=== PATIENT | male | born 1950 | race Caucasian/White ===

== ENCOUNTER 2019-04-01 11:15 | Emergency (ER) | payer MEDICARE, OTHER ==
[~2019-04-01] VITALS: Ht 180.3 cm; Wt 77.3 kg
[~2019-04-01 11:15] MED LIST: ACET500T15 PO; ASPI81TA26 PO; ATOR1TAB21 PO; CHLO25TA PO; KLON1TAB PO; LISI-538 PO; NICO7DIS2 TD; NITR4TASL SL; PLAV1TAB2 PO; POTA99TA PO; RANI150T PO
[2019-04-01 12:16] LABS: VENOUS BASE EXCESS -1.8 (-2.0-2.0); VENOUS HCO3 24.4 MEQ/L (23.0-27.0); VENOUS O2 SATURATION 60.2 % (60.0-80.0); VENOUS PARTIAL PRESSURE CO2 46.5 mmHg (38.0-50.0); VENOUS PH 7.337 UNITS (7.330-7.430); VENOUS TOTAL CO2 25.8 MEQ/L (24.0-28.0)
[2019-04-01 12:21] LABS: BASO % 0.3 % (0.0-1.0); EOS # 0.1 10^3/uL (0.0-0.50); EOS % 0.9 % (0.0-3.0); HEMATOCRIT 42.9 % (42.0-52.0); HEMOGLOBIN 15.3 g/dl (13.5-17.5); LYMPH # 1.4 10^3/uL (1.5-4.5); LYMPH % 24.7 % (24.0-44.0); MEAN CORPUSCULAR HEMOGLOBIN 33.5 pg (27.0-33.0); MEAN CORPUSCULAR HGB CONC 35.7 g/dl (32.0-36.5); MEAN CORPUSCULAR VOLUME 93.9 fl (80.0-96.0); MONO # 0.4 10^3/uL (0.0-0.8); MONO % 6.9 % (0.0-5.0); NEUTROPHILS # 3.9 10^3/uL (1.8-7.7); NEUTROPHILS % 66.9 % (36.0-66.0); PLATELET COUNT, AUTOMATED 167 10^3/uL (150-450); RED BLOOD COUNT 4.57 10^6/uL (4.30-6.10); WHITE BLOOD COUNT 5.8 10^3/uL (4.0-10.0)
[2019-04-01 12:54] LABS: BLOOD UREA NITROGEN 32 MG/DL (7-18); CALCIUM LEVEL 9.8 MG/DL (8.8-10.2); CARBON DIOXIDE LEVEL 25 MEQ/L (21-32); CHLORIDE LEVEL 97 MEQ/L (98-107); CPK CREATINE PHOSPHOKINASE 48 U/L (39-308); CREATININE FOR GFR 1.55 MG/DL (0.70-1.30); GLOMERULAR FILTRATION RATE 47.8 (>49); GLUCOSE, FASTING 404 MG/DL (70-100); POTASSIUM SERUM 4.2 MEQ/L (3.5-5.1); SODIUM LEVEL 132 MEQ/L (136-145); TROPONIN I < 0.02 NG/ML (< 0.10)
--- NOTE | 2019-04-01 12:56 | REP ---
HISTORY: Syncope. COMPARISON: 05/01/2015 The technique utilized in obtaining the radiograph has magnified the cardiac silhouette and accentuated the interstitial markings. The superior mediastinal structures are midline. The cardiac silhouette is unremarkable in size, shape, and position. The diaphragmatic surfaces of the lungs are regular, and the costophrenic angles are clear. The pulmonary cody are clear. The imaged osseous structures are intact. IMPRESSION: There is no acute cardiopulmonary disease. Electronically Signed by Juan Ochoa DO 04/01/2019 01:43 P
[2019-04-01 12:58] LABS: CK-MB VALUE MASS 2.1 NG/ML (<3.6); MB/CK RELATIVE INDEX 4.38 (< OR =4)
[2019-04-01] MEDS ORDERED: HumuLIN R (REGULAR) INSULIN (NovoLIN R) **100U/ML** PER UNIT SC ONE ×2 (13:15→14:30)
--- NOTE | 2019-04-01 13:23 | REP ---
HISTORY: Syncope. COMPARISON: 10/25/2006. TECHNIQUE: 4.5 mm contiguous transaxial sections were obtained from the skull base to the cerebral convexities with thin cuts through the posterior fossa without the administration of intravenous contrast. FINDINGS: The ventricles and sulci are consistent with the patient's age. There are no extra-axial fluid collections. There is no mass effect. The deep cerebral white matter is consistent with the patient's age. The orbital and petrous structures , cerebellopontine angles, and posterior fossa are unremarkable. The sella turcica, cavernous, and paracavernous structures are essentially unremarkable. The visualized portions of the paranasal sinuses and mastoid air cells are clear. Images of the skull base show no gross abnormality. IMPRESSION: Essentially unremarkable CT examination of the brain. Electronically Signed by Juan Ochoa DO 04/01/2019 01:44 P
[2019-04-01] MEDS ORDERED: clonazePAM 1 MG TAB PO ONE (17:00)
[2019-04-01 18:09] LABS: CK-MB VALUE MASS 1.6 NG/ML (<3.6); CPK CREATINE PHOSPHOKINASE 40 U/L (39-308); TROPONIN I < 0.02 NG/ML (< 0.10)
[2019-04-01 18:15] VITALS: BP 131/74
[2019-04-01] MEDS ORDERED: LANTINJ4 SC (18:27)
--- NOTE | 2019-04-01 21:40 | ECGEPIP ---
[facility] - ED Test Date: 2019-04-01 Pat Name: CELE ARMENDARIZ Department: Room: - Gender: Male Peace Officer: fernando : 1950 Requested By: Isaac Hope Order Number: [id number] Reading MD: Ilda Crooks Measurements Intervals [place] Rate: 55 P: 57 PA: 216 QRS: 33 QRSD: 71 T: 152 QT: 377 QTc: 362 Interpretive Statements SINUS BRADYCARDIA WITH SINUS ARRHYTHMIA WITH FIRST DEGREE AV BLOCK NONSPECIFIC ST & T-WAVE ABNORMALITY Electronically Signed on 04-01-2019 21:39:46 EDT by Ilda Crooks
== END 2019-04-01 18:57 | disposition home or self-care (01) ==
LOC: M ED 12:09
DX: R42 Dizziness and giddiness (principal); E11.9 Type 2 diabetes mellitus without complications; R00.1 Bradycardia, unspecified; I44.0 Atrioventricular block, first degree; Z79.82 Long term (current) use of aspirin; Z79.899 Other long term (current) drug therapy; Z86.79 Personal history of other diseases of the circulatory system; Z88.0 Allergy status to penicillin; Z88.2 Allergy status to sulfonamides; Z88.1 Allergy status to other antibiotic agents; Z88.8 Allergy status to other drugs, medicaments and biological substances; Z95.5 Presence of coronary angioplasty implant and graft

== ENCOUNTER → 2019-09-11 | Outpatient (REF) | payer MEDICARE ==
[~2019-09-11] MED LIST changes: +LANTINJ4 SC
== END ==
LOC: M LAB REF 09:42
PROVIDERS: ATTEND Dermatology
DX: D23.5 Other benign neoplasm of skin of trunk (principal)

== ENCOUNTER → 2019-10-09 | Outpatient (REF) | payer MEDICARE ==
[~2019-10-09] MED LIST changes: +GLIP2.5T6 PO; +LEVE1INJ5 SQ
== END ==
LOC: M LAB REF 17:11
PROVIDERS: ATTEND Dermatology
DX: L72.0 Epidermal cyst (principal)

== ENCOUNTER 2019-10-17 12:09 | Emergency (ER) | payer MEDICARE ==
[~2019-10-17] VITALS: Ht 180.3 cm; Wt 83.8 kg
[~2019-10-17 12:09] MED LIST changes: -GLIP2.5T6 PO; -LEVE1INJ5 SQ
[2019-10-17] MEDS ORDERED: LEVE1INJ5 SQ (12:19)
[2019-10-17] MEDS ORDERED: GLIP2.5T6 PO (12:19)
[2019-10-17 13:46] LABS: HEMATOCRIT 48.6 % (42.0-52.0); MEAN CORPUSCULAR HEMOGLOBIN 34.3 pg (27.0-33.0); PLATELET COUNT, AUTOMATED 176 10^3/uL (150-450); RED BLOOD COUNT 4.96 10^6/uL (4.30-6.10); WHITE BLOOD COUNT 6.5 10^3/uL (4.0-10.0)
[2019-10-17 14:02] LABS: INR 1.02; PROTHROMBIN TIME 13.1 SECONDS (11.8-14.0)
[2019-10-17 14:03] LABS: PARTIAL THROMBOPLASTIN TIME 27.3 SECONDS (25.0-38.4)
[2019-10-17 14:44] VITALS: BP 155/75
[2019-10-17] MEDS ORDERED: ASPIRIN 81 MG CHEW TABLET PO ONE (14:45)
== END 2019-10-17 15:10 | disposition home or self-care (01) ==
LOC: M ED 12:09
DX: I73.9 Peripheral vascular disease, unspecified (principal); E11.40 Type 2 diabetes mellitus with diabetic neuropathy, unspecified; I10 Essential (primary) hypertension; E78.5 Hyperlipidemia, unspecified; J44.1 Chronic obstructive pulmonary disease with (acute) exacerbation; N40.1 Benign prostatic hyperplasia with lower urinary tract symptoms; M54.5 Low back pain; F33.9 Major depressive disorder, recurrent, unspecified; F41.9 Anxiety disorder, unspecified; Z88.0 Allergy status to penicillin; Z88.1 Allergy status to other antibiotic agents; Z88.2 Allergy status to sulfonamides; Z88.8 Allergy status to other drugs, medicaments and biological substances; Z79.02 Long term (current) use of antithrombotics/antiplatelets; Z79.82 Long term (current) use of aspirin; Z79.4 Long term (current) use of insulin; Z79.899 Other long term (current) drug therapy

== ENCOUNTER → 2020-05-16 | Outpatient (CLI) | payer MEDICARE, OTHER ==
[~2020-05-16] MED LIST changes: +GLIP2.5T6 PO; +LEVE1INJ5 SQ
[2020-05-16 11:36] LABS: HEMATOCRIT 44.1 % (42.0-52.0); HEMOGLOBIN 15.3 g/dl (13.5-17.5); MEAN CORPUSCULAR HEMOGLOBIN 35.4 pg (27.0-33.0); MEAN CORPUSCULAR HGB CONC 34.7 g/dl (32.0-36.5); MEAN CORPUSCULAR VOLUME 102.1 fl (80.0-96.0); PLATELET COUNT, AUTOMATED 136 10^3/uL (150-450); RED BLOOD COUNT 4.32 10^6/uL (4.30-6.10); WHITE BLOOD COUNT 4.6 10^3/uL (4.0-10.0)
[2020-05-16 11:40] LABS: ALBUMIN 3.7 GM/DL (3.2-5.2); BILIRUBIN,TOTAL 0.5 MG/DL (0.2-1.0); CALCIUM LEVEL 9.1 MG/DL (8.8-10.2); CREATININE FOR GFR 1.6 MG/DL (0.70-1.30); POTASSIUM SERUM 4.7 MEQ/L (3.5-5.1); PROSTATIC SPECIFIC AG MONITOR 1.19 NG/ML (< 4.00); TOTAL PROTEIN 6.6 GM/DL (6.4-8.2)
[2020-05-16 11:52] LABS: HEMOGLOBIN A1c 8.8 %
== END ==
LOC: M PLALAB 08:41
PROVIDERS: ATTEND Family Medicine
DX: E11.9 Type 2 diabetes mellitus without complications (principal); Z12.5 Encounter for screening for malignant neoplasm of prostate
CPT/HCPCS: 36415; 80053; 83036; 84153; 85027; G0463

== ENCOUNTER → 2020-06-12 | Outpatient (CLI) | payer MEDICARE, OTHER ==
[2020-06-12 11:54] LABS: CREATININE FOR GFR 1.65 MG/DL (0.70-1.30); GLOMERULAR FILTRATION RATE 44.4 (>49)
== END ==
LOC: M PLALAB 08:43
PROVIDERS: ATTEND Surgery Vascular Surgery
DX: I70.213 Atherosclerosis of native arteries of extremities with intermittent claudication, bilateral legs (principal); R94.4 Abnormal results of kidney function studies

== ENCOUNTER → 2020-12-19 | Outpatient (REF) | payer MEDICARE, OTHER ==
[~2020-12-19] MED LIST changes: -LISI-538 PO; +LISI20TA33 PO
[2020-12-19 12:16] LABS: BASO % 0.2 % (0.0-1.0); EOS # 0.1 10^3/uL (0.0-0.5); EOS % 1.7 % (0.0-3.0); HEMATOCRIT 44.6 % (42.0-52.0); HEMOGLOBIN 15.5 g/dl (13.5-17.5); LYMPH # 1.6 10^3/uL (1.5-5.0); LYMPH % 24.9 % (24.0-44.0); MEAN CORPUSCULAR HEMOGLOBIN 34.8 pg (27.0-33.0); MEAN CORPUSCULAR HGB CONC 34.8 g/dl (32.0-36.5); MONO # 0.3 10^3/uL (0.0-0.8); MONO % 4.9 % (2.0-8.0); NEUTROPHILS # 4.3 10^3/uL (1.5-8.5); NEUTROPHILS % 67.8 % (36.0-66.0); PLATELET COUNT, AUTOMATED 152 10^3/uL (150-450); RED BLOOD COUNT 4.46 10^6/uL (4.30-6.10); WHITE BLOOD COUNT 6.3 10^3/uL (4.0-10.0)
[2020-12-19 12:55] LABS: ALBUMIN 3.7 GM/DL (3.2-5.2); ALT/SGPT 52 U/L (12-78); BILIRUBIN,TOTAL 0.8 MG/DL (0.2-1.0); BLOOD UREA NITROGEN 30 MG/DL (7-18); CALCIUM LEVEL 9.2 MG/DL (8.8-10.2); CARBON DIOXIDE LEVEL 30 MEQ/L (21-32); CHLORIDE LEVEL 98 MEQ/L (98-107); CHOLESTEROL LEVEL 122 MG/DL (<200); CHOLESTEROL RISK RATIO 3.588 (<5); CREATININE FOR GFR 1.59 MG/DL (0.70-1.30); GLOMERULAR FILTRATION RATE 46.3 (>49); GLUCOSE, FASTING 453 MG/DL (70-100); HDL CHOLESTEROL 34 MG/DL (>40); NON-HDL-C 88 MG/DL; POTASSIUM SERUM 4.4 MEQ/L (3.5-5.1); SODIUM LEVEL 134 MEQ/L (136-145); TOTAL PROTEIN 6.9 GM/DL (6.4-8.2); TRIGLYCERIDES LEVEL 557 MG/DL (<150)
== END ==
LOC: M LAB REF 11:21
PROVIDERS: ATTEND Pediatrics
DX: E78.2 Mixed hyperlipidemia (principal); J44.9 Chronic obstructive pulmonary disease, unspecified; E11.59 Type 2 diabetes mellitus with other circulatory complications

== ENCOUNTER → 2021-01-07 | Outpatient (CLI) | payer MEDICARE ==
--- NOTE | 2021-01-08 07:34 | REP ---
INDICATION: DIZZINESS, GIDDYNESS COMPARISON: None. TECHNIQUE: Veliz scale and color Doppler evaluation using linear high frequency transducer Findings: FINDINGS: Two-dimensional veliz scale and color images demonstrate moderate mixed atheromatous plaquing with laminar flow and no appreciable stenosis or occlusion. Color Doppler interrogation demonstrates normal arterial wave patterns and velocities with elements of spectral broadening. Normal flow direction is appreciated in the bilateral vertebral arteries. ICA peak systolic velocity: Right 65.2 cm/s; Left 72.8 cm/s ICA diastolic velocity: Right 25.5 cm/s; Left 19.0 cm/s ECA peak systolic velocity: Right 78.9 cm/s; Left 103.8 cm/s CCA peak systolic velocity: Right 64.0 cm/s; Left 95.2 cm/s ICA/CCA ratio: Right 2.88 cm/s; Left 1.19 cm/s IMPRESSION: No hemodynamically significant areas of narrowing or stenosis appreciated. Based on set standards narrowing falls within the less than 50% range. <Electronically signed by Tim Bergman > 01/08/21 [id number]
== END ==
LOC: M RAD 11:25
PROVIDERS: ATTEND Pediatrics
DX: R42 Dizziness and giddiness (principal); R09.89 Other specified symptoms and signs involving the circulatory and respiratory systems

== ENCOUNTER → 2021-01-08 | Outpatient (CLI) | payer MEDICARE ==
--- NOTE | 2021-01-09 02:48 | REP ---
INDICATION: LUNG SCREENING COMPARISON: 10/29/2015 TECHNIQUE: Axial noncontrast images from the thoracic inlet to the upper abdomen using low-dose lung screening technique (LDCT). FINDINGS: There is a 12 mm nodule with irregular spiculated margin in the right upper lobe (image 32). There is a non solid 9 mm density in the posterior periphery of the right upper lobe (image 42). Remainder of lung cody are clear. Evaluation for mediastinal and hilar adenopathy is incomplete due to technique. Tracheobronchial tree is patent. No effusion. No pneumothorax. IMPRESSION: Lung-RADS category 4A. Further investigation including PET-CT and/or biopsy is recommended. <Electronically signed by Tim Bergman > 01/09/21 0735
== END ==
LOC: M RAD 11:07
PROVIDERS: ATTEND Pediatrics
DX: Z12.2 Encounter for screening for malignant neoplasm of respiratory organs (principal); R91.1 Solitary pulmonary nodule

== ENCOUNTER → 2021-01-23 | Outpatient (REF) | payer MEDICARE ==
[2021-01-23 12:36] LABS: BASO % 0.3 % (0.0-1.0); EOS # 0.1 10^3/uL (0.0-0.5); EOS % 1.5 % (0.0-3.0); HEMATOCRIT 44.8 % (42.0-52.0); HEMOGLOBIN 16.1 g/dl (13.5-17.5); LYMPH # 1.2 10^3/uL (1.5-5.0); MEAN CORPUSCULAR HEMOGLOBIN 35.3 pg (27.0-33.0); MEAN CORPUSCULAR HGB CONC 35.9 g/dl (32.0-36.5); MEAN CORPUSCULAR VOLUME 98.2 fl (80.0-96.0); MONO # 0.4 10^3/uL (0.0-0.8); MONO % 7.1 % (2.0-8.0); NEUTROPHILS # 4.3 10^3/uL (1.5-8.5); NEUTROPHILS % 71.8 % (36.0-66.0); PLATELET COUNT, AUTOMATED 165 10^3/uL (150-450); RED BLOOD COUNT 4.56 10^6/uL (4.30-6.10); WHITE BLOOD COUNT 6.1 10^3/uL (4.0-10.0)
[2021-01-23 12:42] LABS: INR 0.95; PROTHROMBIN TIME 12.9 SECONDS (12.5-14.3)
[2021-01-23 12:43] LABS: PARTIAL THROMBOPLASTIN TIME 26.9 SECONDS (24.2-38.5)
[2021-01-23 12:56] LABS: CALCIUM LEVEL 9.4 MG/DL (8.8-10.2); CREATININE FOR GFR 1.52 MG/DL (0.70-1.30); GLOMERULAR FILTRATION RATE 48.8 (>49); POTASSIUM SERUM 4.5 MEQ/L (3.5-5.1)
== END ==
LOC: M LAB REF 12:09
PROVIDERS: ATTEND Internal Medicine Pulmonary Disease
DX: J44.9 Chronic obstructive pulmonary disease, unspecified (principal)

== ENCOUNTER → 2021-04-13 | Outpatient (CLI) | payer MEDICARE ==
[~2021-04-13] MED LIST changes: +ALBU8.5H; +ALBU83IN; +AMLO2.5T3; +ATOR80TA59; +FAMO40TA3; +FLUTISP; +IBUP200C25 PO; +INCR1INH INH; +NOVOINJ3; +SM A10CA PO; +TAMS1CAP17
--- NOTE | 2021-04-13 13:33 | REP ---
INDICATION: ABN FINDING OF LUNG COMPARISON: None TECHNIQUE: Axial noncontrast images from the thoracic inlet to the upper abdomen with coronal and sagittal reformations. This CT examination was performed using the following dose reduction techniques: Automated exposure control, adjustment of mA and/or kv according to the patient's size, and use of iterative reconstruction technique. FINDINGS: 15 mm spiculated lesion in the right upper lobe is again identified. Ground-glass nodule in the posterior right upper lobe nonspecific and stable. Lung cody are otherwise clear. No effusion. No consolidation. Tracheobronchial tree is patent. No obvious significant adenopathy noted. Atherosclerotic changes to the thoracic aorta and coronary arteries are unchanged. No aortic aneurysm or cardiomegaly. No pericardial effusion. Surrounding musculoskeletal structures without acute osseous abnormality. Limited upper abdomen demonstrates normal bilateral adrenal glands. IMPRESSION: 15 mm spiculated lesion in the right upper lobe. <Electronically signed by Tim Bergman > 04/13/21 [id number]
== END ==
LOC: M PLAIMG 12:57
PROVIDERS: ATTEND Internal Medicine Pulmonary Disease
DX: R91.8 Other nonspecific abnormal finding of lung field (principal)

== ENCOUNTER → 2021-05-02 | Outpatient (CLI) | payer MEDICARE ==
[~2021-05-02] MED LIST changes: -ALBU83IN; +ALBU83IN INH; -AMLO2.5T3; +AMLO2.5T3 PO; -ATOR80TA59; +ATOR80TA59 PO; -FAMO40TA3; +FAMO40TA3 PO; -FLUTISP; +FLUTISP INH; -TAMS1CAP17; +TAMS1CAP17 PO
== END ==
LOC: M LABSMTC 09:09
PROVIDERS: ATTEND Anesthesiology
DX: Z01.812 Encounter for preprocedural laboratory examination (principal)

== ENCOUNTER 2021-05-06 07:04 | Day surgery (SDC) | payer MEDICARE ==
[~2021-05-06] VITALS: Ht 180.3 cm; Wt 90.4 kg
[~2021-05-06 07:04] MED LIST changes: +ALBUTEROL SULFATE 2.5 MG/0.5 ML INH NEB SOLN INH ONE; +LIDOCAINE 4% INJ 5ML AMP NEB ONE; +LR 1,000 ML IV ONE
[2021-05-06] MEDS ORDERED: propofoL 200 MG/20 ML VIAL As Ordered ONE (08:10)
[2021-05-06] MEDS ORDERED: MIDAZOLAM INJ 2MG/2ML VIAL (J2250 PER 1MG) As Ordered ONE (08:10)
[2021-05-06] MEDS ORDERED: LIDOCAINE 2% 100MG/5ML SDV (FOR ANES.) As Ordered ONE (08:10)
[2021-05-06] MEDS ORDERED: fentaNYL 100 MCG/2 ML INJECTION (J3010) As Ordered ONE (08:10)
[2021-05-06] MEDS ORDERED: ROCURONIUM BROMIDE 50 MG/5 ML VIAL As Ordered ONE (08:10)
[2021-05-06] MEDS ORDERED: ePHEDrine SULFATE 25 MG/5 ML(5MG/ML) SYRINGE As Ordered ONE ×2 (08:25→09:43)
[2021-05-06] MEDS ORDERED: EPINEPHrine 1MG/10ML SYRINGE 1.5IN As Ordered ONE (09:00)
[2021-05-06] MEDS ORDERED: LIDOCAINE 1% SDV 30ML VIAL As Ordered ONE (09:00)
[2021-05-06] MEDS ORDERED: THROMBIN SOLN 20,000 UNITS KIT As Ordered ONE (09:00)
[2021-05-06] MEDS ORDERED: CETACAINE SPRAY 5GM As Ordered ONE (09:00)
[2021-05-06] MEDS ORDERED: THROMBIN SOLN 5,000 UNITS VIAL As Ordered ONE (09:10)
[2021-05-06] MEDS ORDERED: dexameTHASONE 4 MG/ML 1ML VIAL (J1100 PER 1MG) As Ordered ONE (09:34)
[2021-05-06] MEDS ORDERED: ONDANSETRON 4MG/2ML VIAL As Ordered ONE (09:34)
[2021-05-06] MEDS ORDERED: PHENYLephrine 500MCG 5ML (100MCG/ML) SYRINGE As Ordered ONE (09:43)
--- NOTE | 2021-05-06 10:34 | REP ---
INDICATION: RIGHT UPPER LOBE ABNORMALITY. COMPARISON: None. TECHNIQUE: Fluoroscopy provided for bronchoscopy. FINDINGS: Fluoroscopy provided for bronchoscopy. IMPRESSION: 3 minutes 38 seconds fluoroscopy time utilized. <Electronically signed by Morro Veliz > 05/06/21 [id number]
[2021-05-06] MEDS ORDERED: oxyCODONE 5MG TAB PO PRN (10:45)
[2021-05-06] MEDS ORDERED: fentaNYL 100 MCG/2 ML INJECTION (J3010) IV PRN (10:45)
[2021-05-06] MEDS ORDERED: LR 1,000 ML IV SCH (10:45)
[2021-05-06] MEDS ORDERED: ONDANSETRON 4MG/2ML VIAL IV PRN (10:45)
--- NOTE | 2021-05-06 10:51 | ROOR ---
Patient Name: Christopher Winters Procedure Date: 05/06/2021 9:10 AM Date of : 1950 Admit Type: Outpatient Age: 71 Note Status: Finalized Attending MD: Modesta Bhardwaj MD Procedure: Bronchoscopy Indications: Right upper lobe mass Providers: Modesta Bhardwaj MD (Doctor) Referring MD: 1. NO/Unknown PCP 1. NO/Unknown PCP, Admin. (Referring MD) Requesting Physician: Medicines: Lidocaine 4% via nebulizer with Albuterol 2.5 mg, Epinephrine 1 mg/10 mL topical 1 mL, Cetacaine topical, General Anesthesia Complications: No immediate complications. Estimated blood loss: Minimal Procedure: Pre-Anesthesia Assessment: - Patient identification and proposed procedure were verified prior to the procedure by the physician, the nurse, the anesthesiologist, the shredder tender peat and the aircraft technician. The procedure was verified in the procedure room. - Prior to the procedure, a History and Physical was performed, and patient medications and allergies were reviewed. The patient's tolerance of previous anesthesia was also reviewed. The risks and benefits of the procedure and the sedation options and risks were discussed with the patient. All questions were answered, and informed consent was obtained. Prior Anticoagulants: The patient has taken aspirin, last dose was day of procedure. ASA Grade Assessment: II - A patient with mild systemic disease. After reviewing the risks and benefits, the patient was deemed in satisfactory condition to undergo the procedure. The Bronchoscope was introduced through the mouth, via the endotracheal tube (the patient was intubated for the procedure) and advanced to the tracheobronchial tree of both lungs. The procedure was accomplished without difficulty. The patient tolerated the procedure well. Findings: Respiratory tract: The trachea is of normal caliber. The harris is sharp. The entire tracheobronchial tree was examined to at least the first subsegmental level. Bronchial mucosa and anatomy are normal; there are no endobronchial lesions and no secretions, except in the apical segment of the right upper lobe. There was a questionable endobronchial lesion in subsegmental branch of the apical segment of right upper lobe, the mucosa appeared edematous, possible nodular/polypoid. Percepta brush specimen sent prior to start of the Robotic procedure. [employer] Robotic Electromagnetic navigation bronchoscopy was performed. The CT scan was used for planning purposes. A virtual bronchoscopic image was generated using the planning software. The target in the apical segment of the right upper lobe was marked. A nodule 1.5 cm in size was found and a pathway was created. After a complete airway exam, the robotic navigation phase was then begun to locate the target lesion(s). Positioning off-center (in relation to the lesion) was confirmed using the Olympus radial probe US catheter. Transbronchial biopsies of a nodule were performed in the apical segment of the right upper lobe using forceps and sent for histopathology examination. The procedure was guided by fluoroscopy. Transbronchial biopsy technique was selected because the sampling site was not visible endoscopically. Fluoroscopy guided transbronchial brushings of a nodule were obtained in the apical segment of the right upper lobe with a cytology brush and sent for routine cytology. Transbronchial brushing technique was selected because the sampling site was not visible endoscopically. Bronchoalveolar lavage was performed in the RUL apical segment (B1) of the lung and sent for routine cytology, aerobic culture, anaerobic culture and fungal analysis. The return was blood-tinged. Mucous plugs were present in the return fluid. Impression: - Right upper lobe mass - Robotic Electromagnetic navigation bronchoscopy was performed. - Transbronchial lung biopsies were performed. - Transbronchial brushings were obtained. - Bronchoalveolar lavage was performed. Recommendation: - Await test results. Procedure Code(s): --- Professional --- 22395, Bronchoscopy, rigid or flexible, including fluoroscopic guidance, when performed; with transbronchial lung biopsy(s), single lobe 37476, Bronchoscopy, rigid or flexible, including fluoroscopic guidance, when performed; with bronchial alveolar lavage 46881, Bronchoscopy, rigid or flexible, including fluoroscopic guidance, when performed; with brushing or protected brushings 87044, Bronchoscopy, rigid or flexible, including fluoroscopic guidance, when performed; with computer-assisted, image-guided navigation (List separately in addition to code for primary procedure[s]) 91898, Bronchoscopy, rigid or flexible, including fluoroscopic guidance, when performed; with transendoscopic endobronchial ultrasound (EBUS) during bronchoscopic diagnostic or therapeutic intervention(s) for peripheral lesion(s) (List separately in addition to code for primary procedure[s]) CPT copyright 2019 [employer]. All rights reserved. The codes documented in this report are preliminary and upon community health nurse staff review may be revised to meet current compliance requirements. Attending Participation: I personally performed the entire procedure. Modesta Bhardwaj MD 05/06/2021 10:50:56 AM Number of Addenda: 0 Note Initiated On: 05/06/2021 9:10 AM
[2021-05-06] MEDS ORDERED: HumaLOG INSULIN (NovoLOG) PER UNIT SC ONE (11:00)
--- NOTE | 2021-05-06 11:01 | REP ---
INDICATION: POST OP. COMPARISON: 04/01/2019 also portable TECHNIQUE: Portable FINDINGS: The technique utilized in obtaining the radiograph has magnified the cardiac silhouette and attenuated the interstitial markings. There is a nodule in the right upper lobe. The lung cody are otherwise unchanged. Pleural angles are sharp the heart is not enlarged. The osseous structures are within normal limits. IMPRESSION: Right upper lobe nodule. <Electronically signed by Juan Ochoa > 05/06/21 1053
[2021-05-06 11:15] VITALS: BP 150/74
== END 2021-05-06 11:33 | disposition home or self-care (01) ==
LOC: M SDC 07:04
PROVIDERS: ATTEND Internal Medicine Pulmonary Disease
DX: C34.11 Malignant neoplasm of upper lobe, right bronchus or lung (principal); I10 Essential (primary) hypertension; E78.5 Hyperlipidemia, unspecified; E11.9 Type 2 diabetes mellitus without complications; Z87.891 Personal history of nicotine dependence; Z98.61 Coronary angioplasty status; Z79.51 Long term (current) use of inhaled steroids; Z79.899 Other long term (current) drug therapy; J44.9 Chronic obstructive pulmonary disease, unspecified; I73.9 Peripheral vascular disease, unspecified; I25.10 Atherosclerotic heart disease of native coronary artery without angina pectoris; G47.33 Obstructive sleep apnea (adult) (pediatric); Z86.73 Personal history of transient ischemic attack (TIA), and cerebral infarction without residual deficits; Z79.84 Long term (current) use of oral hypoglycemic drugs; Z88.8 Allergy status to other drugs, medicaments and biological substances; Z79.4 Long term (current) use of insulin; Z88.0 Allergy status to penicillin; Z88.2 Allergy status to sulfonamides
CPT/HCPCS: 31623; 31624; 31627; 31628; 31654; 71045; 76000; 87070; 87102; 87205; 88104; 88108; 88305; 88313; 88341; 88342; J1100; J2250; J2370; J2405; J3010; S2900

== ENCOUNTER 2021-07-20 13:37 | Emergency (ER) | payer MEDICARE ==
[~2021-07-20] VITALS: Ht 172.7 cm; Wt 83.0 kg
[~2021-07-20 13:37] MED LIST changes: -ALBUTEROL SULFATE 2.5 MG/0.5 ML INH NEB SOLN INH ONE; -LIDOCAINE 4% INJ 5ML AMP NEB ONE; -LR 1,000 ML IV ONE
[2021-07-20 13:40] VITALS: BP 138/62
== END 2021-07-20 21:00 | disposition left against medical advice (07) ==
LOC: M ED 20:35
DX: Z53.21 Procedure and treatment not carried out due to patient leaving prior to being seen by health care provider (principal)

== ENCOUNTER → 2021-08-17 | Outpatient (CLI) | payer MEDICARE | LOC: M PLARAD 14:55 | PROVIDERS: ATTEND Internal Medicine Pulmonary Disease | DX: C34.11 Malignant neoplasm of upper lobe, right bronchus or lung (principal) | CPT/HCPCS: 78815; A9552 ==

== ENCOUNTER → 2021-09-21 | Outpatient (CLI) | payer MEDICARE ==
[2021-09-21 11:18] LABS: CREATININE FOR GFR 1.93 MG/DL (0.70-1.30); GLOMERULAR FILTRATION RATE 36.9 (>49)
== END ==
LOC: M PLALAB 09:15
PROVIDERS: ATTEND Internal Medicine Pulmonary Disease
DX: C34.11 Malignant neoplasm of upper lobe, right bronchus or lung (principal)

== ENCOUNTER → 2021-09-23 | Outpatient (CLI) | payer MEDICARE | LOC: M PLAIMG 10:58 | PROVIDERS: ATTEND Internal Medicine Pulmonary Disease | DX: C34.11 Malignant neoplasm of upper lobe, right bronchus or lung (principal); M47.26 Other spondylosis with radiculopathy, lumbar region; M99.73 Connective tissue and disc stenosis of intervertebral foramina of lumbar region; I71.4 Abdominal aortic aneurysm, without rupture | CPT/HCPCS: 70553; 72158; A9576 ==

== ENCOUNTER → 2021-09-23 | Outpatient (CLI) | payer MEDICARE ==
[~2021-09-23] MED LIST changes: +PROHANCE 279.3MG/ML 15ML VIAL ONE
== END ==
LOC: M PLAIMG 11:01
PROVIDERS: ATTEND Orthopaedic Surgery
DX: C34.11 Malignant neoplasm of upper lobe, right bronchus or lung (principal); M47.26 Other spondylosis with radiculopathy, lumbar region; M99.73 Connective tissue and disc stenosis of intervertebral foramina of lumbar region; I71.4 Abdominal aortic aneurysm, without rupture

== ENCOUNTER → 2021-11-09 | Outpatient (CLI) | payer MEDICARE ==
[~2021-11-09] MED LIST changes: -PROHANCE 279.3MG/ML 15ML VIAL ONE
== END ==
LOC: M PLAIMG 14:19
PROVIDERS: ATTEND Physician Assistant
DX: C34.11 Malignant neoplasm of upper lobe, right bronchus or lung (principal)

== ENCOUNTER → 2022-02-03 | Outpatient (REF) | payer MEDICARE ==
[~2022-02-03] MED LIST changes: +ALBU2.5V10 INH; -ALBU83IN INH
[2022-02-03 14:56] LABS: BASO % 0.2 % (0.0-1.0); EOS # 0.1 10^3/uL (0.0-0.5); HEMATOCRIT 41.3 % (42.0-52.0); HEMOGLOBIN 13.5 g/dl (13.5-17.5); LYMPH % 16.1 % (24.0-44.0); MEAN CORPUSCULAR HEMOGLOBIN 31.7 pg (27.0-33.0); MEAN CORPUSCULAR HGB CONC 32.7 g/dl (32.0-36.5); MEAN CORPUSCULAR VOLUME 96.9 fl (80.0-96.0); MONO # 0.4 10^3/uL (0.0-0.8); MONO % 6.3 % (2.0-8.0); NEUTROPHILS # 4.5 10^3/uL (1.5-8.5); NEUTROPHILS % 76.1 % (36.0-66.0); PLATELET COUNT, AUTOMATED 180 10^3/uL (150-450); RED BLOOD COUNT 4.26 10^6/uL (4.30-6.10); WHITE BLOOD COUNT 5.9 10^3/uL (4.0-10.0)
[2022-02-03 15:23] LABS: BILIRUBIN,TOTAL 0.4 MG/DL (0.2-1.0); C REACTIVE PROTEIN QUANTITATIV 0.3 MG/DL (0.00-0.30); CREATININE FOR GFR 1.88 MG/DL (0.70-1.30); GLOMERULAR FILTRATION RATE 38.1 (>49); POTASSIUM SERUM 4.7 MEQ/L (3.5-5.1); TOTAL PROTEIN 7.4 GM/DL (6.4-8.2)
[2022-02-04 15:17] LABS: ERYTHROCYTE SEDIMENTATION RATE 32 mm/hr (0-20)
== END ==
LOC: M LAB REF 14:35
PROVIDERS: ATTEND Pediatrics
DX: J86.9 Pyothorax without fistula (principal)

== ENCOUNTER → 2022-02-15 | Outpatient (CLI) | payer MEDICARE | LOC: M RAD 14:43 | PROVIDERS: ATTEND Nurse Practitioner Family | DX: Z79.2 Long term (current) use of antibiotics (principal); J90 Pleural effusion, not elsewhere classified ==

== ENCOUNTER 2022-03-01 05:10 | Emergency (ER) | payer MEDICARE ==
[~2022-03-01] VITALS: Ht 180.3 cm; Wt 80.5 kg
[2022-03-01 13:11] LABS: BASO % 0.2 % (0.0-1.0); EOS % 0.1 % (0.0-3.0); HEMATOCRIT 42.9 % (42.0-52.0); HEMOGLOBIN 14.9 g/dl (13.5-17.5); LYMPH # 0.4 10^3/uL (1.5-5.0); LYMPH % 4.1 % (24.0-44.0); MEAN CORPUSCULAR HGB CONC 34.7 g/dl (32.0-36.5); MEAN CORPUSCULAR VOLUME 92.3 fl (80.0-96.0); MONO # 0.3 10^3/uL (0.0-0.8); MONO % 2.6 % (2.0-8.0); NEUTROPHILS # 9.4 10^3/uL (1.5-8.5); NEUTROPHILS % 92.6 % (36.0-66.0); PLATELET COUNT, AUTOMATED 225 10^3/uL (150-450); RED BLOOD COUNT 4.65 10^6/uL (4.30-6.10); WHITE BLOOD COUNT 10.2 10^3/uL (4.0-10.0)
[2022-03-01 13:42] LABS: ALBUMIN 3.4 GM/DL (3.2-5.2); BILIRUBIN,DIRECT 0.2 MG/DL (0.0-0.2); BILIRUBIN,TOTAL 0.7 MG/DL (0.2-1.0); C REACTIVE PROTEIN QUANTITATIV 0.62 MG/DL (0.00-0.30); TOTAL PROTEIN 7.8 GM/DL (6.4-8.2)
[2022-03-01 13:56] LABS: ERYTHROCYTE SEDIMENTATION RATE 56 mm/hr (0-20)
[2022-03-01 14:42] VITALS: BP 152/80
== END 2022-03-01 18:36 | disposition home or self-care (01) ==
LOC: M ED 05:10
DX: T83.091A Other mechanical complication of indwelling urethral catheter, initial encounter (principal); B37.2 Candidiasis of skin and nail; E11.9 Type 2 diabetes mellitus without complications; I10 Essential (primary) hypertension; E78.5 Hyperlipidemia, unspecified; G47.33 Obstructive sleep apnea (adult) (pediatric); J44.9 Chronic obstructive pulmonary disease, unspecified; Z87.442 Personal history of urinary calculi; Z86.73 Personal history of transient ischemic attack (TIA), and cerebral infarction without residual deficits; Z88.2 Allergy status to sulfonamides; Z88.0 Allergy status to penicillin; Z88.8 Allergy status to other drugs, medicaments and biological substances; Z79.51 Long term (current) use of inhaled steroids; Z79.4 Long term (current) use of insulin; Z79.899 Other long term (current) drug therapy

== ENCOUNTER → 2022-03-03 | Outpatient (REF) | payer MEDICARE ==
[2022-03-03 15:06] LABS: BASO % 0.3 % (0.0-1.0); EOS # 0.1 10^3/uL (0.0-0.5); EOS % 1.1 % (0.0-3.0); HEMATOCRIT 43.2 % (42.0-52.0); LYMPH # 0.9 10^3/uL (1.5-5.0); LYMPH % 11.7 % (24.0-44.0); MEAN CORPUSCULAR HEMOGLOBIN 32.5 pg (27.0-33.0); MEAN CORPUSCULAR HGB CONC 34.7 g/dl (32.0-36.5); MEAN CORPUSCULAR VOLUME 93.7 fl (80.0-96.0); MONO # 0.4 10^3/uL (0.0-0.8); MONO % 5.7 % (2.0-8.0); NEUTROPHILS % 80.8 % (36.0-66.0); PLATELET COUNT, AUTOMATED 233 10^3/uL (150-450); RED BLOOD COUNT 4.61 10^6/uL (4.30-6.10); WHITE BLOOD COUNT 7.4 10^3/uL (4.0-10.0)
[2022-03-03 16:37] LABS: ERYTHROCYTE SEDIMENTATION RATE 45 mm/hr (0-20)
== END ==
LOC: M LAB REF 12:45
PROVIDERS: ATTEND Pediatrics
DX: R70.0 Elevated erythrocyte sedimentation rate (principal)

== ENCOUNTER → 2022-03-09 | Outpatient (REF) | payer MEDICARE | LOC: M LAB REF 13:06 | PROVIDERS: ATTEND Pediatrics | DX: T81.49XD Infection following a procedure, other surgical site, subsequent encounter (principal) ==

== ENCOUNTER → 2022-03-11 | Outpatient (REF) | payer MEDICARE | LOC: M LAB REF 16:14 | PROVIDERS: ATTEND Pediatrics | DX: R79.82 Elevated C-reactive protein (CRP) (principal) ==

== ENCOUNTER 2022-05-12 11:37 | Inpatient (IN) | payer MEDICARE ==
[~2022-05-12] VITALS: Ht 180.3 cm; Wt 79.5 kg
[~2022-05-12 11:37] MED LIST changes: -NOVOINJ3; +NOVOINJ3 SC
[2022-05-12] MEDS ORDERED: LIDOCAINE 2% 5ML JELLY UROJET TOP ONE (15:25)
[2022-05-12 16:53] LABS: BASO % 0.1 % (0.0-1.0); EOS % 0.2 % (0.0-3.0); HEMATOCRIT 44.5 % (42.0-52.0); HEMOGLOBIN 15.1 g/dl (13.5-17.5); LYMPH # 0.9 10^3/uL (1.5-5.0); LYMPH % 7.6 % (24.0-44.0); MEAN CORPUSCULAR HEMOGLOBIN 31.9 pg (27.0-33.0); MEAN CORPUSCULAR HGB CONC 33.9 g/dl (32.0-36.5); MEAN CORPUSCULAR VOLUME 94.1 fl (80.0-96.0); MONO # 0.6 10^3/uL (0.0-0.8); MONO % 5.3 % (2.0-8.0); NEUTROPHILS % 86.4 % (36.0-66.0); PLATELET COUNT, AUTOMATED 223 10^3/uL (150-450); RED BLOOD COUNT 4.73 10^6/uL (4.30-6.10); WHITE BLOOD COUNT 11.6 10^3/uL (4.0-10.0)
[2022-05-12 16:54] LABS: APPEARANCE, URINE MANUAL HAZY (CLEAR); BILIRUBIN, URINE MANUAL NEGATIVE (NEGATIVE); BLOOD URINE MANUAL POSITIVE (NEGATIVE); COLOR, URINE MANUAL YELLOW (YELLOW); GLUCOSE, URINE (UA) MANUAL 2+(250 MG/DL) mg/dL (NEGATIVE); KETONE, URINE MANUAL 1+ mg/dL (NEGATIVE); LEUKOCYTE ESTERASE, URINE MAN POSITIVE (NEGATIVE); NITRITE, URINE MANUAL NEGATIVE (NEGATIVE); PH,URINE MAN 5.5 UNITS (5.0 - 7.0); PROTEIN, URINE MANUAL 2+ mg/dL (NEGATIVE); UROBILINOGEN, URINE MANUAL NORMAL (NORMAL)
[2022-05-12 17:07] LABS: WBC, URINE TNTC /hpf (0-3)
[2022-05-12 17:08] LABS: AMORPHOUS SEDIMENT, URINE SMALL AMOUNT (NEGATIVE); BACTERIA, URINE MOD AMOUNT; HYALINE CAST, URINE NONE SEEN /lpf (0-1); SQUAMOUS EPITHELIAL CELL URINE NONE SEEN /hpf (SMALL AMT)
[2022-05-12 17:17] LABS: CK-MB VALUE MASS 1.7 NG/ML (<3.6); MB/CK RELATIVE INDEX 3.95 (< OR =4)
[2022-05-12] MEDS ORDERED: LORazepam 2 MG/ML VIAL IV STA (17:18)
[2022-05-12] MEDS ORDERED: NS 500 ML IV ONE (17:30)
[2022-05-12 17:34] LABS: RSV AMPLIFICATION NEGATIVE (NEGATIVE)
[2022-05-12 17:39] LABS: AMPHETAMINES LEVEL URINE NEGATIVE (NEGATIVE); BARBITURATES URINE NEGATIVE (NEGATIVE); BENZODIAZEPINES URINE NEGATIVE (NEGATIVE); CANNABINOIDS URINE NEGATIVE (NEGATIVE); COCAINE METABOLITE URINE NEGATIVE (NEGATIVE); METHADONE URINE NEGATIVE (NEGATIVE); OPIATES URINE NEGATIVE (NEGATIVE); PHENCYCLIDINE URINE NEGATIVE (NEGATIVE)
[2022-05-12 17:55] LABS: ACETAMINOPHEN LEVEL < 2.0 UG/ML (10.0-30.0); ALBUMIN 3.4 GM/DL (3.2-5.2); ALT/SGPT 22 U/L (12-78); BILIRUBIN,DIRECT 0.2 MG/DL (0.0-0.2); BILIRUBIN,TOTAL 0.6 MG/DL (0.2-1.0); BLOOD UREA NITROGEN 22 MG/DL (7-18); CALCIUM LEVEL 9.3 MG/DL (8.8-10.2); CARBON DIOXIDE LEVEL 21 MEQ/L (21-32); CHLORIDE LEVEL 103 MEQ/L (98-107); CREATININE FOR GFR 1.43 MG/DL (0.70-1.30); ETHYL ALCOHOL (ETHANOL) 0.007 % (0.000-0.010); GLUCOSE, FASTING 212 MG/DL (70-100); LIPASE 283 U/L (73-393); POTASSIUM SERUM 3.8 MEQ/L (3.5-5.1); SALICYLATE LEVEL < 1.7 MG/DL (5.0-30.0); SODIUM LEVEL 136 MEQ/L (136-145); TOTAL PROTEIN 7.4 GM/DL (6.4-8.2)
[2022-05-12] MEDS ORDERED: DEXTROSE 50% 50 ML SYRINGE IV PRN (18:30)
[2022-05-12] MEDS ORDERED: ACETAMINOPHEN TAB 650MG DOSE (2X325MG) PO PRN (18:30)
[2022-05-12] MEDS ORDERED: GLUCAGON INJ 1MG VIAL SC PRN (18:30)
[2022-05-12] MEDS ORDERED: GLUCOSE 4GM CHEW TABLET PO PRN (18:30)
[2022-05-12] MEDS ORDERED: VENTAER INH (18:51)
[2022-05-12] MEDS ORDERED: HOME MED LIST COMPLETE! XX SCH (18:55)
[2022-05-12 19:52] LABS: VENOUS HCO3 20.4 MEQ/L (23.0-27.0); VENOUS O2 SATURATION 91.3 % (60.0-80.0); VENOUS PARTIAL PRESSURE CO2 32.4 mmHg (38.0-50.0); VENOUS PARTIAL PRESSURE O2 63.4 mmHg (30.0-50.0); VENOUS PH 7.418 UNITS (7.330-7.430); VENOUS STANDARD HCO3 21.8 MEQ/L; VENOUS TOTAL CO2 21.4 MEQ/L (24.0-28.0)
[2022-05-12 20:18] LABS: HEMOGLOBIN A1c 8.7 %
[2022-05-12] MEDS: INSULIN LISPRO (NovoLOG) PER UNIT SC SCH (21:29)
[2022-05-13] MEDS ORDERED: ALBUTEROL 90 MCG/ACT 8GM HFA INHALER INH PRN (00:25)
[2022-05-13] MEDS ORDERED: LevoFLOXacin 750 MG TABLET PO SCH (06:00)
[2022-05-13 08:45] LABS: HEMATOCRIT 42.1 % (42.0-52.0); HEMOGLOBIN 13.8 g/dl (13.5-17.5); MEAN CORPUSCULAR HEMOGLOBIN 31.2 pg (27.0-33.0); MEAN CORPUSCULAR HGB CONC 32.8 g/dl (32.0-36.5); PLATELET COUNT, AUTOMATED 176 10^3/uL (150-450); RED BLOOD COUNT 4.43 10^6/uL (4.30-6.10); WHITE BLOOD COUNT 6.8 10^3/uL (4.0-10.0)
[2022-05-13] MEDS ORDERED: LACTOBACILLUS ACIDOPHILUS CAP (BACID) PO SCH (09:00)
[2022-05-13] MEDS: ASPIRIN 81 MG CHEW TABLET PO SCH (09:06)
[2022-05-13] MEDS: LEVEMIR (INSULIN DETEMIR) 1 UNITS/0.01ML SC SCH (09:07)
[2022-05-13] MEDS: INSULIN LISPRO (NovoLOG) PER UNIT SC SCH ×4 (09:08→21:00)
[2022-05-13] MEDS: HEPARIN SOD (PORCINE) 5000UNITS/ML 1ML VIAL/SYRINGE SQ SCH ×2 (09:10→21:33)
[2022-05-13 09:31] LABS: ALT/SGPT 16 U/L (12-78); BILIRUBIN,TOTAL 0.6 MG/DL (0.2-1.0); BLOOD UREA NITROGEN 25 MG/DL (7-18); CALCIUM LEVEL 8.6 MG/DL (8.8-10.2); CARBON DIOXIDE LEVEL 25 MEQ/L (21-32); CHLORIDE LEVEL 107 MEQ/L (98-107); CHOLESTEROL LEVEL 95 MG/DL (<200); CHOLESTEROL RISK RATIO 2.261 (<5); GLOMERULAR FILTRATION RATE > 60.0 (>42); GLUCOSE, FASTING 180 MG/DL (70-100); HDL CHOLESTEROL 42 MG/DL (>40); LDL CHOLESTEROL 32 MG/DL (<100); MAGNESIUM LEVEL 2.2 MG/DL (1.8-2.4); NON-HDL-C 53 MG/DL; POTASSIUM SERUM 3.5 MEQ/L (3.5-5.1); SODIUM LEVEL 139 MEQ/L (136-145); TOTAL PROTEIN 6.2 GM/DL (6.4-8.2); TRIGLYCERIDES LEVEL 107 MG/DL (<150)
[2022-05-13 11:18] VITALS: BP 168/81
[2022-05-13] MEDS: LevoFLOXacin 750 MG TABLET PO SCH (13:59)
[2022-05-13 14:00] VITALS: BP 169/78
[2022-05-13] MEDS: clonazePAM 1 MG TAB PO PRN (18:04)
[2022-05-13 19:39] VITALS: BP 167/85
[2022-05-13] MEDS: ATORVASTATIN 20 MG TAB PO SCH (21:32)
[2022-05-13 23:28] VITALS: BP 152/68
[2022-05-14] MEDS: SIMETHICONE 80MG CHEW TAB PO PRN (00:23)
[2022-05-14 05:30] VITALS: BP 160/72
[2022-05-14] MEDS: clonazePAM 1 MG TAB PO PRN ×2 (06:19→20:30)
[2022-05-14] MEDS: INSULIN LISPRO (NovoLOG) PER UNIT SC SCH ×4 (07:28→20:30)
[2022-05-14 08:19] LABS: BASO % 0.2 % (0.0-1.0); EOS # 0.1 10^3/uL (0.0-0.5); HEMATOCRIT 40.4 % (42.0-52.0); HEMOGLOBIN 13.3 g/dl (13.5-17.5); LYMPH # 0.9 10^3/uL (1.5-5.0); LYMPH % 14.4 % (24.0-44.0); MEAN CORPUSCULAR HEMOGLOBIN 31.4 pg (27.0-33.0); MEAN CORPUSCULAR HGB CONC 32.9 g/dl (32.0-36.5); MEAN CORPUSCULAR VOLUME 95.5 fl (80.0-96.0); MONO # 0.4 10^3/uL (0.0-0.8); MONO % 7.1 % (2.0-8.0); NEUTROPHILS # 4.8 10^3/uL (1.5-8.5); NEUTROPHILS % 76.8 % (36.0-66.0); PLATELET COUNT, AUTOMATED 174 10^3/uL (150-450); RED BLOOD COUNT 4.23 10^6/uL (4.30-6.10); WHITE BLOOD COUNT 6.2 10^3/uL (4.0-10.0)
[2022-05-14] MEDS: HEPARIN SOD (PORCINE) 5000UNITS/ML 1ML VIAL/SYRINGE SQ SCH ×2 (08:46→20:31)
[2022-05-14] MEDS: LevoFLOXacin 750 MG TABLET PO SCH (08:46)
[2022-05-14] MEDS: LEVEMIR (INSULIN DETEMIR) 1 UNITS/0.01ML SC SCH (08:47)
[2022-05-14] MEDS: ASPIRIN 81 MG CHEW TABLET PO SCH (08:47)
[2022-05-14 08:54] LABS: BLOOD UREA NITROGEN 26 MG/DL (7-18); CARBON DIOXIDE LEVEL 30 MEQ/L (21-32); CHLORIDE LEVEL 103 MEQ/L (98-107); GLOMERULAR FILTRATION RATE > 60.0 (>42); GLUCOSE, FASTING 129 MG/DL (70-100); POTASSIUM SERUM 3.8 MEQ/L (3.5-5.1); SODIUM LEVEL 136 MEQ/L (136-145)
[2022-05-14 11:14] VITALS: BP_SYST 158; BP_SYST 166; BP_SYST 170; BP_DIAS 92; BP_DIAS 93
[2022-05-14 14:00] VITALS: BP 172/92
[2022-05-14] MEDS: PANTOPRAZOLE 20 MG TAB PO SCH ×2 (14:25→20:30)
[2022-05-14] MEDS: ATORVASTATIN 20 MG TAB PO SCH (20:30)
[2022-05-14 20:32] VITALS: BP 170/78
[2022-05-15 05:41] VITALS: BP 164/71
[2022-05-15 07:26] LABS: BASO % 0.2 % (0.0-1.0); EOS # 0.1 10^3/uL (0.0-0.5); EOS % 0.9 % (0.0-3.0); HEMATOCRIT 40.9 % (42.0-52.0); HEMOGLOBIN 13.5 g/dl (13.5-17.5); MEAN CORPUSCULAR HEMOGLOBIN 31.3 pg (27.0-33.0); MEAN CORPUSCULAR VOLUME 94.7 fl (80.0-96.0); MONO # 0.4 10^3/uL (0.0-0.8); MONO % 6.4 % (2.0-8.0); NEUTROPHILS % 77.2 % (36.0-66.0); PLATELET COUNT, AUTOMATED 174 10^3/uL (150-450); RED BLOOD COUNT 4.32 10^6/uL (4.30-6.10); WHITE BLOOD COUNT 6.5 10^3/uL (4.0-10.0)
[2022-05-15] MEDS: INSULIN LISPRO (NovoLOG) PER UNIT SC SCH ×4 (07:30→21:00)
[2022-05-15 07:53] LABS: BLOOD UREA NITROGEN 26 MG/DL (7-18); CALCIUM LEVEL 8.5 MG/DL (8.8-10.2); CARBON DIOXIDE LEVEL 27 MEQ/L (21-32); CHLORIDE LEVEL 104 MEQ/L (98-107); CREATININE FOR GFR 1.14 MG/DL (0.70-1.30); GLOMERULAR FILTRATION RATE > 60.0 (>42); GLUCOSE, FASTING 148 MG/DL (70-100); MAGNESIUM LEVEL 2.3 MG/DL (1.8-2.4); POTASSIUM SERUM 3.6 MEQ/L (3.5-5.1); SODIUM LEVEL 136 MEQ/L (136-145)
[2022-05-15] MEDS: HEPARIN SOD (PORCINE) 5000UNITS/ML 1ML VIAL/SYRINGE SQ SCH ×2 (08:32→20:55)
[2022-05-15] MEDS: ASPIRIN 81 MG CHEW TABLET PO SCH (08:33)
[2022-05-15] MEDS: clonazePAM 1 MG TAB PO PRN ×2 (08:33→15:04)
[2022-05-15] MEDS: LevoFLOXacin 750 MG TABLET PO SCH (08:33)
[2022-05-15] MEDS: PANTOPRAZOLE 20 MG TAB PO SCH ×2 (08:33→20:55)
[2022-05-15] MEDS: LEVEMIR (INSULIN DETEMIR) 1 UNITS/0.01ML SC SCH (08:34)
[2022-05-15] MEDS: SIMETHICONE 80MG CHEW TAB PO PRN ×2 (08:43→15:06)
[2022-05-15 09:15] VITALS: BP 184/72
[2022-05-15 09:57] LABS: AMYLASE 412 U/L (25-115); LIPASE 437 U/L (73-393)
[2022-05-15 10:00] VITALS: BP 168/76
[2022-05-15] MEDS ORDERED: amLODIPine 5 MG TAB PO ONE (12:00)
[2022-05-15 14:00] VITALS: BP 139/81
[2022-05-15] MEDS ORDERED: LORazepam 2 MG/ML VIAL IV PRN (15:35)
[2022-05-15] MEDS: ATORVASTATIN 20 MG TAB PO SCH (20:55)
[2022-05-16 05:21] VITALS: BP 165/81
[2022-05-16 06:58] LABS: BASO % 0.2 % (0.0-1.0); EOS # 0.1 10^3/uL (0.0-0.5); EOS % 1.6 % (0.0-3.0); HEMATOCRIT 40.6 % (42.0-52.0); HEMOGLOBIN 13.5 g/dl (13.5-17.5); LYMPH # 0.9 10^3/uL (1.5-5.0); LYMPH % 16.1 % (24.0-44.0); MEAN CORPUSCULAR HEMOGLOBIN 31.6 pg (27.0-33.0); MEAN CORPUSCULAR HGB CONC 33.3 g/dl (32.0-36.5); MEAN CORPUSCULAR VOLUME 95.1 fl (80.0-96.0); MONO # 0.4 10^3/uL (0.0-0.8); MONO % 6.7 % (2.0-8.0); NEUTROPHILS # 4.3 10^3/uL (1.5-8.5); NEUTROPHILS % 75.2 % (36.0-66.0); PLATELET COUNT, AUTOMATED 179 10^3/uL (150-450); RED BLOOD COUNT 4.27 10^6/uL (4.30-6.10); WHITE BLOOD COUNT 5.7 10^3/uL (4.0-10.0)
[2022-05-16 07:39] LABS: BLOOD UREA NITROGEN 27 MG/DL (7-18); CALCIUM LEVEL 8.6 MG/DL (8.8-10.2); CARBON DIOXIDE LEVEL 27 MEQ/L (21-32); CHLORIDE LEVEL 104 MEQ/L (98-107); CREATININE FOR GFR 1.22 MG/DL (0.70-1.30); GLOMERULAR FILTRATION RATE > 60.0 (>42); GLUCOSE, FASTING 161 MG/DL (70-100); MAGNESIUM LEVEL 2.3 MG/DL (1.8-2.4); POTASSIUM SERUM 3.6 MEQ/L (3.5-5.1); SODIUM LEVEL 137 MEQ/L (136-145)
[2022-05-16] MEDS: HEPARIN SOD (PORCINE) 5000UNITS/ML 1ML VIAL/SYRINGE SQ SCH ×2 (09:38→21:00)
[2022-05-16] MEDS: LevoFLOXacin 750 MG TABLET PO SCH (09:38)
[2022-05-16] MEDS: ASPIRIN 81 MG CHEW TABLET PO SCH (09:38)
[2022-05-16] MEDS: LEVEMIR (INSULIN DETEMIR) 1 UNITS/0.01ML SC SCH (09:38)
[2022-05-16] MEDS: PANTOPRAZOLE 20 MG TAB PO SCH ×2 (09:38→21:00)
[2022-05-16] MEDS: clonazePAM 1 MG TAB PO PRN ×3 (09:40→23:52)
[2022-05-16] MEDS: amLODIPine 5 MG TAB PO SCH ×2 (09:40→21:02)
[2022-05-16] MEDS: INSULIN LISPRO (NovoLOG) PER UNIT SC SCH ×4 (09:46→20:37)
[2022-05-16 15:49] VITALS: BP 153/50
[2022-05-16 19:57] VITALS: BP 155/78
[2022-05-16] MEDS: ATORVASTATIN 20 MG TAB PO SCH (21:00)
[2022-05-17 05:30] VITALS: BP 153/79
[2022-05-17 07:16] LABS: BASO % 0.2 % (0.0-1.0); EOS # 0.1 10^3/uL (0.0-0.5); EOS % 1.6 % (0.0-3.0); HEMATOCRIT 41.4 % (42.0-52.0); HEMOGLOBIN 13.6 g/dl (13.5-17.5); LYMPH % 20.6 % (24.0-44.0); MEAN CORPUSCULAR HEMOGLOBIN 31.1 pg (27.0-33.0); MEAN CORPUSCULAR HGB CONC 32.9 g/dl (32.0-36.5); MEAN CORPUSCULAR VOLUME 94.7 fl (80.0-96.0); MONO # 0.4 10^3/uL (0.0-0.8); NEUTROPHILS # 3.5 10^3/uL (1.5-8.5); NEUTROPHILS % 70.2 % (36.0-66.0); PLATELET COUNT, AUTOMATED 186 10^3/uL (150-450); RED BLOOD COUNT 4.37 10^6/uL (4.30-6.10)
[2022-05-17 07:49] LABS: BLOOD UREA NITROGEN 24 MG/DL (7-18); CALCIUM LEVEL 8.5 MG/DL (8.8-10.2); CARBON DIOXIDE LEVEL 28 MEQ/L (21-32); CHLORIDE LEVEL 105 MEQ/L (98-107); CREATININE FOR GFR 1.06 MG/DL (0.70-1.30); GLOMERULAR FILTRATION RATE > 60.0 (>42); GLUCOSE, FASTING 149 MG/DL (70-100); MAGNESIUM LEVEL 2.3 MG/DL (1.8-2.4); POTASSIUM SERUM 3.6 MEQ/L (3.5-5.1); SODIUM LEVEL 139 MEQ/L (136-145)
[2022-05-17] MEDS: ASPIRIN 81 MG CHEW TABLET PO SCH (09:23)
[2022-05-17] MEDS: LEVEMIR (INSULIN DETEMIR) 1 UNITS/0.01ML SC SCH (09:23)
[2022-05-17] MEDS: LevoFLOXacin 750 MG TABLET PO SCH (09:23)
[2022-05-17] MEDS: INSULIN LISPRO (NovoLOG) PER UNIT SC SCH ×4 (09:23→21:00)
[2022-05-17] MEDS: amLODIPine 5 MG TAB PO SCH ×2 (09:24→21:39)
[2022-05-17] MEDS: HEPARIN SOD (PORCINE) 5000UNITS/ML 1ML VIAL/SYRINGE SQ SCH ×2 (09:25→21:37)
[2022-05-17] MEDS: clonazePAM 1 MG TAB PO PRN ×2 (09:27→21:40)
[2022-05-17] MEDS: PANTOPRAZOLE 20 MG TAB PO SCH ×2 (09:27→21:37)
[2022-05-17] MEDS: ATORVASTATIN 20 MG TAB PO SCH (21:37)
[2022-05-18 05:32] VITALS: BP 162/83
[2022-05-18 06:16] LABS: BASO % 0.2 % (0.0-1.0); EOS # 0.1 10^3/uL (0.0-0.5); EOS % 1.9 % (0.0-3.0); HEMATOCRIT 40.3 % (42.0-52.0); HEMOGLOBIN 13.8 g/dl (13.5-17.5); LYMPH % 20.1 % (24.0-44.0); MEAN CORPUSCULAR HEMOGLOBIN 32.5 pg (27.0-33.0); MEAN CORPUSCULAR HGB CONC 34.2 g/dl (32.0-36.5); MEAN CORPUSCULAR VOLUME 94.8 fl (80.0-96.0); MONO # 0.4 10^3/uL (0.0-0.8); MONO % 6.9 % (2.0-8.0); NEUTROPHILS # 3.7 10^3/uL (1.5-8.5); NEUTROPHILS % 70.7 % (36.0-66.0); PLATELET COUNT, AUTOMATED 184 10^3/uL (150-450); RED BLOOD COUNT 4.25 10^6/uL (4.30-6.10); WHITE BLOOD COUNT 5.2 10^3/uL (4.0-10.0)
[2022-05-18 06:57] LABS: CALCIUM LEVEL 8.8 MG/DL (8.8-10.2); CREATININE FOR GFR 1.28 MG/DL (0.70-1.30); GLOMERULAR FILTRATION RATE 59.1 (>42); MAGNESIUM LEVEL 2.3 MG/DL (1.8-2.4); POTASSIUM SERUM 4.2 MEQ/L (3.5-5.1)
[2022-05-18] MEDS: PANTOPRAZOLE 20 MG TAB PO SCH ×2 (08:10→21:47)
[2022-05-18] MEDS: ASPIRIN 81 MG CHEW TABLET PO SCH (08:10)
[2022-05-18] MEDS: amLODIPine 5 MG TAB PO SCH ×2 (08:13→21:47)
[2022-05-18] MEDS: INSULIN LISPRO (NovoLOG) PER UNIT SC SCH ×4 (08:14→21:00)
[2022-05-18] MEDS: HEPARIN SOD (PORCINE) 5000UNITS/ML 1ML VIAL/SYRINGE SQ SCH ×2 (08:15→21:47)
[2022-05-18] MEDS: LEVEMIR (INSULIN DETEMIR) 1 UNITS/0.01ML SC SCH (08:15)
[2022-05-18] MEDS: clonazePAM 1 MG TAB PO PRN ×2 (08:25→16:49)
[2022-05-18 14:00] VITALS: BP 148/83
[2022-05-18] MEDS: ATORVASTATIN 20 MG TAB PO SCH (21:46)
[2022-05-19] MEDS: clonazePAM 1 MG TAB PO PRN ×3 (01:25→20:28)
[2022-05-19 05:30] VITALS: BP 152/83
[2022-05-19 05:47] LABS: BASO % 0.2 % (0.0-1.0); EOS # 0.1 10^3/uL (0.0-0.5); EOS % 2.6 % (0.0-3.0); HEMATOCRIT 41.2 % (42.0-52.0); HEMOGLOBIN 13.9 g/dl (13.5-17.5); LYMPH % 19.2 % (24.0-44.0); MEAN CORPUSCULAR HEMOGLOBIN 31.8 pg (27.0-33.0); MEAN CORPUSCULAR HGB CONC 33.7 g/dl (32.0-36.5); MEAN CORPUSCULAR VOLUME 94.3 fl (80.0-96.0); MONO # 0.4 10^3/uL (0.0-0.8); MONO % 7.1 % (2.0-8.0); NEUTROPHILS # 3.6 10^3/uL (1.5-8.5); NEUTROPHILS % 70.7 % (36.0-66.0); PLATELET COUNT, AUTOMATED 160 10^3/uL (150-450); RED BLOOD COUNT 4.37 10^6/uL (4.30-6.10); WHITE BLOOD COUNT 5.1 10^3/uL (4.0-10.0)
[2022-05-19 06:25] LABS: BLOOD UREA NITROGEN 26 MG/DL (7-18); CALCIUM LEVEL 8.7 MG/DL (8.8-10.2); CARBON DIOXIDE LEVEL 27 MEQ/L (21-32); CHLORIDE LEVEL 103 MEQ/L (98-107); CREATININE FOR GFR 1.07 MG/DL (0.70-1.30); GLOMERULAR FILTRATION RATE > 60.0 (>42); GLUCOSE, FASTING 149 MG/DL (70-100); MAGNESIUM LEVEL 2.1 MG/DL (1.8-2.4); SODIUM LEVEL 136 MEQ/L (136-145)
[2022-05-19] MEDS: LEVEMIR (INSULIN DETEMIR) 1 UNITS/0.01ML SC SCH (07:59)
[2022-05-19] MEDS: INSULIN LISPRO (NovoLOG) PER UNIT SC SCH ×4 (08:00→20:25)
[2022-05-19] MEDS: ASPIRIN 81 MG CHEW TABLET PO SCH (08:01)
[2022-05-19] MEDS: PANTOPRAZOLE 20 MG TAB PO SCH ×2 (08:01→20:33)
[2022-05-19] MEDS: amLODIPine 5 MG TAB PO SCH ×2 (08:04→20:28)
[2022-05-19] MEDS: HEPARIN SOD (PORCINE) 5000UNITS/ML 1ML VIAL/SYRINGE SQ SCH ×2 (08:05→20:27)
[2022-05-19] MEDS: ATORVASTATIN 20 MG TAB PO SCH (20:28)
[2022-05-20 05:42] VITALS: BP 159/79
[2022-05-20 06:07] LABS: BASO % 0.2 % (0.0-1.0); EOS # 0.1 10^3/uL (0.0-0.5); EOS % 2.3 % (0.0-3.0); HEMATOCRIT 39.7 % (42.0-52.0); HEMOGLOBIN 13.4 g/dl (13.5-17.5); LYMPH % 19.9 % (24.0-44.0); MEAN CORPUSCULAR HEMOGLOBIN 31.6 pg (27.0-33.0); MEAN CORPUSCULAR HGB CONC 33.8 g/dl (32.0-36.5); MEAN CORPUSCULAR VOLUME 93.6 fl (80.0-96.0); MONO # 0.4 10^3/uL (0.0-0.8); MONO % 7.9 % (2.0-8.0); NEUTROPHILS # 3.3 10^3/uL (1.5-8.5); NEUTROPHILS % 69.3 % (36.0-66.0); PLATELET COUNT, AUTOMATED 164 10^3/uL (150-450); RED BLOOD COUNT 4.24 10^6/uL (4.30-6.10); WHITE BLOOD COUNT 4.8 10^3/uL (4.0-10.0)
[2022-05-20 06:29] LABS: BLOOD UREA NITROGEN 24 MG/DL (7-18); CALCIUM LEVEL 8.4 MG/DL (8.8-10.2); CARBON DIOXIDE LEVEL 28 MEQ/L (21-32); CHLORIDE LEVEL 102 MEQ/L (98-107); CREATININE FOR GFR 1.15 MG/DL (0.70-1.30); GLOMERULAR FILTRATION RATE > 60.0 (>42); GLUCOSE, FASTING 152 MG/DL (70-100); MAGNESIUM LEVEL 2.3 MG/DL (1.8-2.4); POTASSIUM SERUM 3.9 MEQ/L (3.5-5.1); SODIUM LEVEL 135 MEQ/L (136-145)
[2022-05-20] MEDS: LEVEMIR (INSULIN DETEMIR) 1 UNITS/0.01ML SC SCH (08:57)
[2022-05-20] MEDS: INSULIN LISPRO (NovoLOG) PER UNIT SC SCH ×4 (08:58→21:19)
[2022-05-20] MEDS: clonazePAM 1 MG TAB PO PRN ×2 (08:58→21:18)
[2022-05-20] MEDS: ASPIRIN 81 MG CHEW TABLET PO SCH (08:58)
[2022-05-20] MEDS: HEPARIN SOD (PORCINE) 5000UNITS/ML 1ML VIAL/SYRINGE SQ SCH ×2 (08:59→21:17)
[2022-05-20] MEDS: PANTOPRAZOLE 20 MG TAB PO SCH ×2 (08:59→21:16)
[2022-05-20] MEDS: amLODIPine 5 MG TAB PO SCH ×2 (09:01→21:17)
[2022-05-20] MEDS: ATORVASTATIN 20 MG TAB PO SCH (21:16)
[2022-05-21 05:21] VITALS: BP 159/78
[2022-05-21 07:17] LABS: BLOOD UREA NITROGEN 27 MG/DL (7-18); CALCIUM LEVEL 8.5 MG/DL (8.8-10.2); CARBON DIOXIDE LEVEL 28 MEQ/L (21-32); CHLORIDE LEVEL 103 MEQ/L (98-107); CREATININE FOR GFR 1.04 MG/DL (0.70-1.30); GLOMERULAR FILTRATION RATE > 60.0 (>42); GLUCOSE, FASTING 162 MG/DL (70-100); MAGNESIUM LEVEL 2.3 MG/DL (1.8-2.4); POTASSIUM SERUM 4.3 MEQ/L (3.5-5.1); SODIUM LEVEL 135 MEQ/L (136-145)
[2022-05-21 07:25] LABS: BASO % 0.2 % (0.0-1.0); EOS # 0.1 10^3/uL (0.0-0.5); EOS % 1.9 % (0.0-3.0); HEMATOCRIT 41.4 % (42.0-52.0); HEMOGLOBIN 13.7 g/dl (13.5-17.5); LYMPH # 0.9 10^3/uL (1.5-5.0); LYMPH % 17.2 % (24.0-44.0); MEAN CORPUSCULAR HEMOGLOBIN 31.3 pg (27.0-33.0); MEAN CORPUSCULAR HGB CONC 33.1 g/dl (32.0-36.5); MEAN CORPUSCULAR VOLUME 94.5 fl (80.0-96.0); MONO # 0.4 10^3/uL (0.0-0.8); NEUTROPHILS # 3.8 10^3/uL (1.5-8.5); NEUTROPHILS % 73.5 % (36.0-66.0); PLATELET COUNT, AUTOMATED 171 10^3/uL (150-450); RED BLOOD COUNT 4.38 10^6/uL (4.30-6.10); WHITE BLOOD COUNT 5.1 10^3/uL (4.0-10.0)
[2022-05-21] MEDS: INSULIN LISPRO (NovoLOG) PER UNIT SC SCH ×4 (10:30→20:38)
[2022-05-21] MEDS: HEPARIN SOD (PORCINE) 5000UNITS/ML 1ML VIAL/SYRINGE SQ SCH ×2 (10:30→20:40)
[2022-05-21] MEDS: LEVEMIR (INSULIN DETEMIR) 1 UNITS/0.01ML SC SCH (10:30)
[2022-05-21] MEDS: ASPIRIN 81 MG CHEW TABLET PO SCH (10:31)
[2022-05-21] MEDS: PANTOPRAZOLE 20 MG TAB PO SCH ×2 (10:31→20:38)
[2022-05-21] MEDS: clonazePAM 1 MG TAB PO PRN ×2 (10:31→17:56)
[2022-05-21] MEDS: amLODIPine 5 MG TAB PO SCH ×2 (10:31→20:39)
[2022-05-21] MEDS: ATORVASTATIN 20 MG TAB PO SCH (20:39)
[2022-05-22] MEDS: clonazePAM 1 MG TAB PO PRN (04:18)
[2022-05-22 06:38] VITALS: BP 160/78
[2022-05-22] MEDS: INSULIN LISPRO (NovoLOG) PER UNIT SC SCH (07:30)
[2022-05-22 09:47] VITALS: BP 159/67
[2022-05-22] MEDS: ASPIRIN 81 MG CHEW TABLET PO SCH (09:47)
[2022-05-22] MEDS: amLODIPine 5 MG TAB PO SCH (09:47)
[2022-05-22] MEDS: LEVEMIR (INSULIN DETEMIR) 1 UNITS/0.01ML SC SCH (09:48)
[2022-05-22] MEDS: HEPARIN SOD (PORCINE) 5000UNITS/ML 1ML VIAL/SYRINGE SQ SCH (09:48)
[2022-05-22] MEDS: PANTOPRAZOLE 20 MG TAB PO SCH (09:50)
== END 2022-05-22 11:26 | disposition home health service (06) | DRG 698 ==
LOC: M ED 11:37 → M ED INP 11:38 → ENRESERV 05-13 10:54 → M MSPAV 05-13 11:18 → OBSVTOIN 05-14 10:22
PROVIDERS: ADMIT Internal Medicine; ATTEND Internal Medicine
DX: T83.511A Infection and inflammatory reaction due to indwelling urethral catheter, initial encounter (principal); G93.41 Metabolic encephalopathy; N17.9 Acute kidney failure, unspecified; N39.0 Urinary tract infection, site not specified; E11.51 Type 2 diabetes mellitus with diabetic peripheral angiopathy without gangrene; E11.22 Type 2 diabetes mellitus with diabetic chronic kidney disease; I12.9 Hypertensive chronic kidney disease with stage 1 through stage 4 chronic kidney disease, or unspecified chronic kidney disease; J44.9 Chronic obstructive pulmonary disease, unspecified; N18.9 Chronic kidney disease, unspecified; K21.9 Gastro-esophageal reflux disease without esophagitis; E78.5 Hyperlipidemia, unspecified; I25.10 Atherosclerotic heart disease of native coronary artery without angina pectoris; N40.1 Benign prostatic hyperplasia with lower urinary tract symptoms; G47.33 Obstructive sleep apnea (adult) (pediatric); K57.90 Diverticulosis of intestine, part unspecified, without perforation or abscess without bleeding; I10 Essential (primary) hypertension; Z88.0 Allergy status to penicillin; Z88.2 Allergy status to sulfonamides; Z88.8 Allergy status to other drugs, medicaments and biological substances; Z79.4 Long term (current) use of insulin; Z79.899 Other long term (current) drug therapy; Z85.118 Personal history of other malignant neoplasm of bronchus and lung; F41.9 Anxiety disorder, unspecified; F32.A Depression, unspecified; Z98.41 Cataract extraction status, right eye; Z98.42 Cataract extraction status, left eye; Z87.891 Personal history of nicotine dependence; K59.00 Constipation, unspecified; Y84.6 Urinary catheterization as the cause of abnormal reaction of the patient, or of later complication, without mention of misadventure at the time of the procedure

== ENCOUNTER 2022-06-20 15:30 | Inpatient (IN) | payer MEDICARE ==
[~2022-06-20] VITALS: Ht 172.7 cm; Wt 67.0 kg
[~2022-06-20 15:30] MED LIST changes: +CLOP75TA99 PO; -PLAV1TAB2 PO; +VENTAER INH
[2022-06-20] MEDS ORDERED: ACETAMINOPHEN TAB 650MG DOSE (2X325MG) PO ONE (16:25)
[2022-06-20] MEDS ORDERED: cefTRIAXone SOD 2 GM in D5W MINI-BAG PLUS 50 ML IV ONE (16:25)
[2022-06-20] MEDS ORDERED: NS 2,010 ML in IV 1 EA IV ONE (16:25)
[2022-06-20 16:35] LABS: BASO % 0.1 % (0.0-1.0); HEMATOCRIT 34.5 % (42.0-52.0); HEMOGLOBIN 11.8 g/dl (13.5-17.5); LYMPH # 0.2 10^3/uL (1.5-5.0); LYMPH % 2.9 % (24.0-44.0); MEAN CORPUSCULAR HEMOGLOBIN 31.4 pg (27.0-33.0); MEAN CORPUSCULAR HGB CONC 34.2 g/dl (32.0-36.5); MEAN CORPUSCULAR VOLUME 91.8 fl (80.0-96.0); MONO # 0.4 10^3/uL (0.0-0.8); MONO % 5.2 % (2.0-8.0); NEUTROPHILS % 91.5 % (36.0-66.0); PLATELET COUNT, AUTOMATED 163 10^3/uL (150-450); RED BLOOD COUNT 3.76 10^6/uL (4.30-6.10); WHITE BLOOD COUNT 7.7 10^3/uL (4.0-10.0)
[2022-06-20 17:08] LABS: ALBUMIN 2.7 GM/DL (3.2-5.2); CALCIUM LEVEL 8.4 MG/DL (8.8-10.2); CREATININE FOR GFR 1.45 MG/DL (0.70-1.30); GLOMERULAR FILTRATION RATE 51.2 (>42); POTASSIUM SERUM 3.9 MEQ/L (3.5-5.1)
[2022-06-20 17:10] LABS: RSV AMPLIFICATION NEGATIVE (NEGATIVE)
[2022-06-20] MEDS ORDERED: LIDOCAINE 2% 5ML JELLY UROJET TOP ONE (17:35)
[2022-06-20] MEDS ORDERED: HOME MED LIST COMPLETE! XX SCH (19:45)
[2022-06-20] MEDS ORDERED: MOM 30ML SUSPENSION UDC PO PRN (20:30)
[2022-06-20] MEDS ORDERED: ACETAMINOPHEN TAB 650MG DOSE (2X325MG) PO PRN (20:30)
[2022-06-20] MEDS ORDERED: ATOR80TA59 PO (20:48)
[2022-06-20] MEDS ORDERED: ALBU8.5H INH (20:48)
[2022-06-20] MEDS ORDERED: AMLO2.5T3 PO (20:48)
[2022-06-20] MEDS ORDERED: TAMS1CAP17 PO (20:48)
[2022-06-20] MEDS ORDERED: MED REC COMMENT (20:50)
[2022-06-20] MEDS: DOCUSATE SODIUM 100MG CAPSULE PO SCH (21:00)
[2022-06-20] MEDS: INSULIN LISPRO (NovoLOG) PER UNIT SC SCH (21:00)
[2022-06-20] MEDS ORDERED: ASPI81TA26 PO (21:19)
[2022-06-20] MEDS ORDERED: GLUCOSE 4GM CHEW TABLET PO PRN (21:25)
[2022-06-20] MEDS ORDERED: GLUCAGON INJ 1MG VIAL SC PRN (21:25)
[2022-06-20] MEDS ORDERED: ALBUTEROL 90 MCG/ACT 8GM HFA INHALER INH PRN (21:25)
[2022-06-20] MEDS ORDERED: DEXTROSE 50% 50 ML SYRINGE IV PRN (21:25)
[2022-06-21] MEDS: ATORVASTATIN 20 MG TAB PO SCH ×2 (00:35→21:34)
[2022-06-21] MEDS: HEPARIN SOD (PORCINE) 5000UNITS/ML 1ML VIAL/SYRINGE SC SCH ×3 (06:00→21:34)
[2022-06-21] MEDS: INSULIN LISPRO (NovoLOG) PER UNIT SC SCH ×4 (07:30→21:00)
[2022-06-21 07:31] LABS: HEMATOCRIT 32.7 % (42.0-52.0); HEMOGLOBIN 10.8 g/dl (13.5-17.5); MEAN CORPUSCULAR HEMOGLOBIN 31.9 pg (27.0-33.0); MEAN CORPUSCULAR VOLUME 96.5 fl (80.0-96.0); PLATELET COUNT, AUTOMATED 148 10^3/uL (150-450); RED BLOOD COUNT 3.39 10^6/uL (4.30-6.10); WHITE BLOOD COUNT 3.9 10^3/uL (4.0-10.0)
[2022-06-21 08:09] LABS: ALBUMIN 2.3 GM/DL (3.2-5.2); BILIRUBIN,TOTAL 0.5 MG/DL (0.2-1.0); CALCIUM LEVEL 8.2 MG/DL (8.8-10.2); CREATININE FOR GFR 1.35 MG/DL (0.70-1.30); GLOMERULAR FILTRATION RATE 55.6 (>42); POTASSIUM SERUM 3.6 MEQ/L (3.5-5.1); TOTAL PROTEIN 5.9 GM/DL (6.4-8.2)
[2022-06-21] MEDS: DOCUSATE SODIUM 100MG CAPSULE PO SCH ×2 (09:25→21:34)
[2022-06-21] MEDS: ASPIRIN 81MG ENTERIC TABLET PO SCH (09:26)
[2022-06-21] MEDS: TAMSULOSIN 0.4 MG CAP PO SCH (09:26)
[2022-06-21 16:20] VITALS: BP 141/74
[2022-06-21 16:40] LABS: COMPLEMENT C3 66 MG/DL (90-180); COMPLEMENT C4 35 MG/DL (10-40)
[2022-06-21 16:50] LABS: INR 1.16
[2022-06-21 16:51] LABS: PARTIAL THROMBOPLASTIN TIME 39.7 SECONDS (24.8-34.2)
[2022-06-21 17:29] LABS: HEPATITIS B SURFACE ANTIGEN NEGATIVE (NEGATIVE)
[2022-06-21 17:57] LABS: HEPATITIS B CORE ANTIBODY IGM NEGATIVE (NEGATIVE)
[2022-06-21] MEDS: cefTRIAXone SOD 1 GM in D5W MINI-BAG PLUS 50 ML IV SCH (18:09)
[2022-06-21] MEDS ORDERED: PILL CUTTER 1 EACH XX PRN (18:25)
[2022-06-21 22:00] VITALS: BP 142/74
[2022-06-21] MEDS ORDERED: clonazePAM 0.5 MG TAB PO ONE (22:00)
[2022-06-22] MEDS: HEPARIN SOD (PORCINE) 5000UNITS/ML 1ML VIAL/SYRINGE SC SCH ×3 (05:31→21:22)
[2022-06-22 06:00] VITALS: BP 161/79
[2022-06-22 08:18] LABS: BLOOD UREA NITROGEN 20 MG/DL (7-18); CALCIUM LEVEL 8.1 MG/DL (8.8-10.2); CARBON DIOXIDE LEVEL 25 MEQ/L (21-32); CHLORIDE LEVEL 105 MEQ/L (98-107); CREATININE FOR GFR 1.17 MG/DL (0.70-1.30); GLOMERULAR FILTRATION RATE > 60.0 (>42); GLUCOSE, FASTING 153 MG/DL (70-100); POTASSIUM SERUM 3.5 MEQ/L (3.5-5.1); SODIUM LEVEL 136 MEQ/L (136-145)
[2022-06-22] MEDS: TAMSULOSIN 0.4 MG CAP PO SCH (09:52)
[2022-06-22] MEDS: DOCUSATE SODIUM 100MG CAPSULE PO SCH ×2 (09:52→21:22)
[2022-06-22] MEDS: ASPIRIN 81MG ENTERIC TABLET PO SCH (09:52)
[2022-06-22] MEDS: INSULIN LISPRO (NovoLOG) PER UNIT SC SCH ×4 (09:53→21:00)
[2022-06-22 10:26] VITALS: BP_SYST 158; BP_SYST 160; BP_SYST 165; BP_DIAS 71; BP_DIAS 72; BP_DIAS 81
[2022-06-22] MEDS: clonazePAM 1 MG TAB PO PRN ×2 (13:11→21:22)
[2022-06-22 14:00] VITALS: BP 142/63
[2022-06-22] MEDS ORDERED: clonazePAM 1 MG TAB PO SCH (16:00)
[2022-06-22] MEDS: cefTRIAXone SOD 1 GM in D5W MINI-BAG PLUS 50 ML IV SCH (17:43)
[2022-06-22] MEDS: ATORVASTATIN 20 MG TAB PO SCH (21:22)
[2022-06-22 22:00] VITALS: BP 163/83
[2022-06-23] MEDS: HEPARIN SOD (PORCINE) 5000UNITS/ML 1ML VIAL/SYRINGE SC SCH ×2 (05:35→12:36)
[2022-06-23 06:00] VITALS: BP 154/70
[2022-06-23] MEDS: INSULIN LISPRO (NovoLOG) PER UNIT SC SCH ×2 (08:09→12:37)
[2022-06-23] MEDS: DOCUSATE SODIUM 100MG CAPSULE PO SCH (08:10)
[2022-06-23] MEDS: TAMSULOSIN 0.4 MG CAP PO SCH (08:10)
[2022-06-23] MEDS: clonazePAM 1 MG TAB PO PRN (08:10)
[2022-06-23] MEDS: ASPIRIN 81MG ENTERIC TABLET PO SCH (08:10)
[2022-06-23 08:15] VITALS: BP 175/81
[2022-06-23 09:01] LABS: BLOOD UREA NITROGEN 14 MG/DL (7-18); CALCIUM LEVEL 8.4 MG/DL (8.8-10.2); CARBON DIOXIDE LEVEL 27 MEQ/L (21-32); CHLORIDE LEVEL 104 MEQ/L (98-107); GLOMERULAR FILTRATION RATE > 60.0 (>42); GLUCOSE, FASTING 201 MG/DL (70-100); POTASSIUM SERUM 3.5 MEQ/L (3.5-5.1); SODIUM LEVEL 137 MEQ/L (136-145)
[2022-06-23 14:00] VITALS: BP 161/84
[2022-06-23] MEDS ORDERED: LEVO1TAB39 PO (14:27)
[2022-06-25 15:08] LABS: ANCA-ATYPICAL <1:20 titer (Neg:<1:20); COMPLEMENT TOTAL (CH50) 55 U/mL (>41); CYTOPLASMIC NEUTROP AB ANCA-C <1:20 titer (Neg:<1:20); PERINUCLEAR AB ANCA-P <1:20 titer (Neg:<1:20); VITAMIN C, ASCORBIC ACID <0.1 mg/dL (0.4-2.0)
== END 2022-06-23 15:40 | disposition home health service (06) | DRG 700 ==
LOC: EDBD 15:30 → M ED 15:30 → M MSPAV 20:28 → M ED INP 20:28 → ENRESERV 06-21 14:09 → M MSPAV 06-21 16:19
PROVIDERS: ADMIT Family Medicine; ATTEND Internal Medicine
DX: T83.511A Infection and inflammatory reaction due to indwelling urethral catheter, initial encounter (principal); N39.0 Urinary tract infection, site not specified; E11.22 Type 2 diabetes mellitus with diabetic chronic kidney disease; E11.51 Type 2 diabetes mellitus with diabetic peripheral angiopathy without gangrene; I12.9 Hypertensive chronic kidney disease with stage 1 through stage 4 chronic kidney disease, or unspecified chronic kidney disease; E78.5 Hyperlipidemia, unspecified; N18.30 Chronic kidney disease, stage 3 unspecified; I25.10 Atherosclerotic heart disease of native coronary artery without angina pectoris; J44.9 Chronic obstructive pulmonary disease, unspecified; G47.33 Obstructive sleep apnea (adult) (pediatric); I71.40 Abdominal aortic aneurysm, without rupture, unspecified; Z88.0 Allergy status to penicillin; Z88.8 Allergy status to other drugs, medicaments and biological substances; Z88.2 Allergy status to sulfonamides; Z79.899 Other long term (current) drug therapy; Z79.82 Long term (current) use of aspirin; I69.328 Other speech and language deficits following cerebral infarction; N40.0 Benign prostatic hyperplasia without lower urinary tract symptoms; Z95.2 Presence of prosthetic heart valve; F32.A Depression, unspecified; F41.9 Anxiety disorder, unspecified; Z87.891 Personal history of nicotine dependence; Z98.41 Cataract extraction status, right eye; Z98.42 Cataract extraction status, left eye; R31.0 Gross hematuria; Y84.6 Urinary catheterization as the cause of abnormal reaction of the patient, or of later complication, without mention of misadventure at the time of the procedure

== ENCOUNTER 2022-07-12 06:27 | Inpatient (IN) | payer MEDICARE ==
[~2022-07-12] VITALS: Ht 180.3 cm; Wt 65.2 kg
[~2022-07-12 06:27] MED LIST changes: +ALBU8.5H INH; +LEVO1TAB39 PO; +MED REC COMMENT
[2022-07-12 07:10] LABS: EOS % 0.7 % (0.0-3.0); HEMATOCRIT 39.3 % (42.0-52.0); HEMOGLOBIN 13.1 g/dl (13.5-17.5); LYMPH % 17.1 % (24.0-44.0); MEAN CORPUSCULAR HEMOGLOBIN 31.4 pg (27.0-33.0); MEAN CORPUSCULAR HGB CONC 33.3 g/dl (32.0-36.5); MEAN CORPUSCULAR VOLUME 94.2 fl (80.0-96.0); MONO # 0.5 10^3/uL (0.0-0.8); MONO % 8.5 % (2.0-8.0); NEUTROPHILS # 4.3 10^3/uL (1.5-8.5); NEUTROPHILS % 73.4 % (36.0-66.0); PLATELET COUNT, AUTOMATED 197 10^3/uL (150-450); RED BLOOD COUNT 4.17 10^6/uL (4.30-6.10); WHITE BLOOD COUNT 5.9 10^3/uL (4.0-10.0)
[2022-07-12 07:11] LABS: VENOUS BASE EXCESS -6.2 (-2.0-2.0); VENOUS HCO3 17.8 MEQ/L (23.0-27.0); VENOUS O2 SATURATION 86.1 % (60.0-80.0); VENOUS PARTIAL PRESSURE CO2 30.6 mmHg (38.0-50.0); VENOUS PARTIAL PRESSURE O2 53.3 mmHg (30.0-50.0); VENOUS PH 7.383 UNITS (7.330-7.430); VENOUS STANDARD HCO3 19.2 MEQ/L; VENOUS TOTAL CO2 18.8 MEQ/L (24.0-28.0)
[2022-07-12] MEDS ORDERED: NS 1,000 ML IV ONE (07:20)
[2022-07-12 07:22] LABS: INR 1.08; PROTHROMBIN TIME 14.2 SECONDS (12.5-14.5)
[2022-07-12 07:23] LABS: PARTIAL THROMBOPLASTIN TIME 32.9 SECONDS (24.8-34.2)
[2022-07-12] MEDS ORDERED: LABETALOL 100MG/20ML VIAL IV STA (07:27)
[2022-07-12 07:53] LABS: ALBUMIN 3.2 G/DL (3.2-5.2); ALT/SGPT 9 U/L (7.0-40); BILIRUBIN,TOTAL 0.7 MG/DL (0.3-1.2); BLOOD UREA NITROGEN 24 MG/DL (9-23); CALCIUM LEVEL 8.2 MG/DL (8.3-10.6); CARBON DIOXIDE LEVEL 24 MMOL/L (20-31); CHLORIDE LEVEL 101 MMOL/L (98-107); CK-MB VALUE MASS 1.7 NG/ML (<3.6); CPK CREATINE PHOSPHOKINASE 42 U/L (46-171); CREATININE FOR GFR 1.22 MG/DL (0.70-1.30); FREE THYROXINE INDEX 5.3 % (1.4-3.8); GLOMERULAR FILTRATION RATE > 60.0 (>42); GLUCOSE, FASTING 169 MG/DL (74-106); MB/CK RELATIVE INDEX 4.04 (< OR =4); POTASSIUM SERUM 3.5 MMOL/L (3.5-5.1); SODIUM LEVEL 137 MMOL/L (136-145); T UPTAKE 47.7 % (22.5-37.0); THYROID STIMULATING HORMONE 3.484 uIU/ML (0.55-4.78); THYROXINE (T4) 11.1 UG/DL (4.5-10.9); TOTAL PROTEIN 6.5 G/DL (5.7-8.2)
[2022-07-12 09:00] LABS: CK-MB VALUE MASS 1.2 NG/ML (<3.6); MB/CK RELATIVE INDEX 2.92 (< OR =4)
[2022-07-12] MEDS ORDERED: DOCUSATE SODIUM 100MG CAPSULE PO SCH (09:00)
[2022-07-12] MEDS ORDERED: MOM 30ML SUSPENSION UDC PO PRN (10:30)
[2022-07-12] MEDS ORDERED: LEVO1TAB39 PO (11:54)
[2022-07-12] MEDS ORDERED: CLON1TAB8 PO (11:56)
[2022-07-12] MEDS ORDERED: HOME MED LIST COMPLETE! XX SCH (12:00)
[2022-07-12 12:30] VITALS: BP 166/77
[2022-07-12 14:00] VITALS: BP_SYST 140; BP_SYST 145; BP_SYST 162; BP_DIAS 62; BP_DIAS 73; BP_DIAS 76
[2022-07-12] MEDS ORDERED: ALBUTEROL 90 MCG/ACT 8GM HFA INHALER INH PRN (14:55)
[2022-07-12] MEDS ORDERED: DEXTROSE 50% 50 ML SYRINGE IV PRN (14:55)
[2022-07-12] MEDS ORDERED: GLUCOSE 4GM CHEW TABLET PO PRN (14:55)
[2022-07-12] MEDS ORDERED: GLUCAGON INJ 1MG VIAL SC PRN (14:55)
[2022-07-12] MEDS: ASPIRIN 81MG ENTERIC TABLET PO SCH (15:12)
[2022-07-12] MEDS: clonazePAM 1 MG TAB PO SCH ×2 (15:12→21:21)
[2022-07-12] MEDS: ENOXAPARIN 40MG/0.4ML SYRINGE (J1650 PER 10MG) SC SCH (15:13)
[2022-07-12 16:22] VITALS: BP 162/74
[2022-07-12] MEDS: INSULIN LISPRO (NovoLOG) PER UNIT SC SCH (18:36)
[2022-07-12 19:59] VITALS: BP 131/79
[2022-07-12 20:00] VITALS: BP 162/75
[2022-07-13] VITALS (7 sets, daily range): BP systolic 122–189; BP diastolic 69–91
[2022-07-13 04:20] LABS: BASO % 0.2 % (0.0-1.0); EOS # 0.1 10^3/uL (0.0-0.5); EOS % 2.1 % (0.0-3.0); HEMATOCRIT 34.8 % (42.0-52.0); HEMOGLOBIN 11.3 g/dl (13.5-17.5); LYMPH # 1.1 10^3/uL (1.5-5.0); LYMPH % 25.1 % (24.0-44.0); MEAN CORPUSCULAR HEMOGLOBIN 31.2 pg (27.0-33.0); MEAN CORPUSCULAR HGB CONC 32.5 g/dl (32.0-36.5); MEAN CORPUSCULAR VOLUME 96.1 fl (80.0-96.0); MONO # 0.5 10^3/uL (0.0-0.8); MONO % 10.3 % (2.0-8.0); NEUTROPHILS # 2.7 10^3/uL (1.5-8.5); NEUTROPHILS % 62.1 % (36.0-66.0); PLATELET COUNT, AUTOMATED 164 10^3/uL (150-450); RED BLOOD COUNT 3.62 10^6/uL (4.30-6.10); WHITE BLOOD COUNT 4.4 10^3/uL (4.0-10.0)
[2022-07-13 05:57] LABS: CALCIUM LEVEL 7.8 MG/DL (8.3-10.6); CREATININE FOR GFR 1.27 MG/DL (0.70-1.30); GLOMERULAR FILTRATION RATE 59.7 (>42); POTASSIUM SERUM 3.3 MMOL/L (3.5-5.1)
[2022-07-13] MEDS ORDERED: POTASSIUM CHL PWD 20 MEQ PACKET PO ONE (06:10)
[2022-07-13] MEDS: ENOXAPARIN 40MG/0.4ML SYRINGE (J1650 PER 10MG) SC SCH (08:24)
[2022-07-13] MEDS: clonazePAM 1 MG TAB PO SCH ×3 (08:25→20:28)
[2022-07-13] MEDS: ASPIRIN 81MG ENTERIC TABLET PO SCH (08:25)
[2022-07-13] MEDS: POTASSIUM CHLORIDE 10MEQ SR TABLET PO SCH ×2 (08:25→20:28)
[2022-07-13] MEDS: INSULIN LISPRO (NovoLOG) PER UNIT SC SCH ×3 (08:25→17:24)
[2022-07-13] MEDS ORDERED: LR 1,000 ML IV SCH (11:30)
[2022-07-13] MEDS ORDERED: LR 500 ML IV ONE (12:45)
[2022-07-13] MEDS: amLODIPine 5 MG TAB PO SCH (20:28)
[2022-07-14] VITALS (7 sets, daily range): BP systolic 139–179; BP diastolic 68–85
[2022-07-14] MEDS ORDERED: hydrALAZINE 20MG/ML 1ML VIAL (J0360 PER 20MG) IV STA (03:58)
[2022-07-14 05:25] LABS: BASO % 0.2 % (0.0-1.0); EOS # 0.1 10^3/uL (0.0-0.5); EOS % 2.6 % (0.0-3.0); HEMATOCRIT 38.8 % (42.0-52.0); HEMOGLOBIN 12.5 g/dl (13.5-17.5); LYMPH % 21.5 % (24.0-44.0); MEAN CORPUSCULAR HEMOGLOBIN 31.5 pg (27.0-33.0); MEAN CORPUSCULAR HGB CONC 32.2 g/dl (32.0-36.5); MEAN CORPUSCULAR VOLUME 97.7 fl (80.0-96.0); MONO # 0.4 10^3/uL (0.0-0.8); MONO % 9.2 % (2.0-8.0); NEUTROPHILS % 66.1 % (36.0-66.0); PLATELET COUNT, AUTOMATED 178 10^3/uL (150-450); RED BLOOD COUNT 3.97 10^6/uL (4.30-6.10); WHITE BLOOD COUNT 4.6 10^3/uL (4.0-10.0)
[2022-07-14 05:55] LABS: BLOOD UREA NITROGEN 22 MG/DL (9-23); CALCIUM LEVEL 8.6 MG/DL (8.3-10.6); CARBON DIOXIDE LEVEL 28 MMOL/L (20-31); CHLORIDE LEVEL 106 MMOL/L (98-107); CREATININE FOR GFR 1.22 MG/DL (0.70-1.30); GLOMERULAR FILTRATION RATE > 60.0 (>42); GLUCOSE, FASTING 186 MG/DL (74-106); POTASSIUM SERUM 4.9 MMOL/L (3.5-5.1); SODIUM LEVEL 140 MMOL/L (136-145)
[2022-07-14] MEDS ORDERED: SENNA 8.6 MG TAB (SENOKOT) PO PRN (07:20)
[2022-07-14] MEDS: METAMUCIL (PSYLLIUM) PACKET PO SCH ×2 (09:48→20:26)
[2022-07-14] MEDS: ENOXAPARIN 40MG/0.4ML SYRINGE (J1650 PER 10MG) SC SCH (09:48)
[2022-07-14] MEDS: ASPIRIN 81MG ENTERIC TABLET PO SCH (09:49)
[2022-07-14] MEDS: MIRALAX *UNIT DOSE* 17GM PACKET PO SCH ×2 (09:49→20:26)
[2022-07-14] MEDS: LOSARTAN 50MG TABLET PO SCH (09:49)
[2022-07-14] MEDS: INSULIN LISPRO (NovoLOG) PER UNIT SC SCH ×3 (09:49→17:39)
[2022-07-14] MEDS: amLODIPine 5 MG TAB PO SCH ×2 (09:49→20:27)
[2022-07-14] MEDS: clonazePAM 1 MG TAB PO SCH ×3 (09:50→20:27)
[2022-07-14] MEDS ORDERED: COZA50TA PO (10:07)
[2022-07-14] MEDS ORDERED: MIRA1POW3 PO (10:07)
[2022-07-14] MEDS ORDERED: META1POW PO (10:07)
[2022-07-14] MEDS ORDERED: AMLO1TAB24 PO (10:07)
[2022-07-14] MEDS ORDERED: SENN18TA PO (10:07)
[2022-07-15] VITALS: BP 139/71
[2022-07-15 04:00] VITALS: BP 162/79
[2022-07-15 05:25] LABS: BASO % 0.2 % (0.0-1.0); EOS # 0.2 10^3/uL (0.0-0.5); EOS % 3.7 % (0.0-3.0); HEMATOCRIT 42.3 % (42.0-52.0); HEMOGLOBIN 13.4 g/dl (13.5-17.5); MEAN CORPUSCULAR HEMOGLOBIN 30.7 pg (27.0-33.0); MEAN CORPUSCULAR HGB CONC 31.7 g/dl (32.0-36.5); MEAN CORPUSCULAR VOLUME 96.8 fl (80.0-96.0); MONO # 0.4 10^3/uL (0.0-0.8); MONO % 9.3 % (2.0-8.0); NEUTROPHILS % 65.6 % (36.0-66.0); PLATELET COUNT, AUTOMATED 183 10^3/uL (150-450); RED BLOOD COUNT 4.37 10^6/uL (4.30-6.10); WHITE BLOOD COUNT 4.6 10^3/uL (4.0-10.0)
[2022-07-15 06:02] LABS: BLOOD UREA NITROGEN 25 MG/DL (9-23); CALCIUM LEVEL 8.5 MG/DL (8.3-10.6); CARBON DIOXIDE LEVEL 24 MMOL/L (20-31); CHLORIDE LEVEL 102 MMOL/L (98-107); GLOMERULAR FILTRATION RATE > 60.0 (>42); GLUCOSE, FASTING 156 MG/DL (74-106); POTASSIUM SERUM 4.3 MMOL/L (3.5-5.1); SODIUM LEVEL 136 MMOL/L (136-145)
[2022-07-15 08:00] VITALS: BP 136/80
[2022-07-15] MEDS: INSULIN LISPRO (NovoLOG) PER UNIT SC SCH (09:00)
[2022-07-15] MEDS: MIRALAX *UNIT DOSE* 17GM PACKET PO SCH (09:00)
[2022-07-15] MEDS: ENOXAPARIN 40MG/0.4ML SYRINGE (J1650 PER 10MG) SC SCH (09:01)
[2022-07-15] MEDS: amLODIPine 5 MG TAB PO SCH (09:01)
[2022-07-15] MEDS: LOSARTAN 50MG TABLET PO SCH (09:01)
[2022-07-15] MEDS: ASPIRIN 81MG ENTERIC TABLET PO SCH (09:01)
[2022-07-15] MEDS: clonazePAM 1 MG TAB PO SCH (09:01)
[2022-07-15] MEDS: METAMUCIL (PSYLLIUM) PACKET PO SCH (09:02)
[2022-07-15] MEDS ORDERED: amLODIPine 5 MG TAB PO STA (09:55)
[2022-07-15 11:40] VITALS: BP 136/80
== END 2022-07-15 12:50 | disposition home health service (06) | DRG 312 ==
LOC: EDBD 06:27 → M ED 06:27 → M ED INP 10:29 → ENRESERV 11:38 → M PCU 12:03
PROVIDERS: ADMIT Internal Medicine Nephrology; ATTEND Student in an Organized Health Care Education/Training Program
DX: I95.1 Orthostatic hypotension (principal); F13.239 Sedative, hypnotic or anxiolytic dependence with withdrawal, unspecified; I16.0 Hypertensive urgency; J44.9 Chronic obstructive pulmonary disease, unspecified; Z95.5 Presence of coronary angioplasty implant and graft; E78.5 Hyperlipidemia, unspecified; I10 Essential (primary) hypertension; F41.1 Generalized anxiety disorder; G47.33 Obstructive sleep apnea (adult) (pediatric); E11.40 Type 2 diabetes mellitus with diabetic neuropathy, unspecified; N40.1 Benign prostatic hyperplasia with lower urinary tract symptoms; H50.9 Unspecified strabismus; R42 Dizziness and giddiness; R19.7 Diarrhea, unspecified; E87.6 Hypokalemia; Z85.118 Personal history of other malignant neoplasm of bronchus and lung; Z79.899 Other long term (current) drug therapy; Z88.0 Allergy status to penicillin; Z88.2 Allergy status to sulfonamides; Z88.8 Allergy status to other drugs, medicaments and biological substances; Z79.82 Long term (current) use of aspirin; Z79.4 Long term (current) use of insulin; Z98.41 Cataract extraction status, right eye; Z98.42 Cataract extraction status, left eye; Z95.2 Presence of prosthetic heart valve; Z87.891 Personal history of nicotine dependence

== ENCOUNTER 2022-07-17 10:49 | Emergency (ER) | payer MEDICARE ==
[~2022-07-17] VITALS: Ht 167.6 cm; Wt 81.8 kg
[~2022-07-17 10:49] MED LIST changes: +AMLO1TAB24 PO; +CLON1TAB8 PO; +COZA50TA PO; +META1POW PO; +MIRA1POW3 PO; +SENN18TA PO
[2022-07-17 12:22] LABS: EOS # 0.1 10^3/uL (0.0-0.5); EOS % 1.4 % (0.0-3.0); HEMATOCRIT 36.8 % (42.0-52.0); HEMOGLOBIN 12.6 g/dl (13.5-17.5); LYMPH # 0.9 10^3/uL (1.5-5.0); LYMPH % 15.2 % (24.0-44.0); MEAN CORPUSCULAR HEMOGLOBIN 31.6 pg (27.0-33.0); MEAN CORPUSCULAR HGB CONC 34.2 g/dl (32.0-36.5); MEAN CORPUSCULAR VOLUME 92.2 fl (80.0-96.0); MONO # 0.4 10^3/uL (0.0-0.8); MONO % 6.6 % (2.0-8.0); NEUTROPHILS # 4.4 10^3/uL (1.5-8.5); NEUTROPHILS % 76.6 % (36.0-66.0); PLATELET COUNT, AUTOMATED 183 10^3/uL (150-450); RED BLOOD COUNT 3.99 10^6/uL (4.30-6.10); WHITE BLOOD COUNT 5.7 10^3/uL (4.0-10.0)
[2022-07-17 12:23] LABS: VENOUS BASE EXCESS -0.7 (-2.0-2.0); VENOUS HCO3 23.7 MEQ/L (23.0-27.0); VENOUS PARTIAL PRESSURE CO2 38.1 mmHg (38.0-50.0); VENOUS PH 7.411 UNITS (7.330-7.430); VENOUS STANDARD HCO3 23.8 MEQ/L; VENOUS TOTAL CO2 24.8 MEQ/L (24.0-28.0)
[2022-07-17 12:55] LABS: BLOOD UREA NITROGEN 21 MG/DL (9-23); CALCIUM LEVEL 8.9 MG/DL (8.3-10.6); CARBON DIOXIDE LEVEL 25 MMOL/L (20-31); CHLORIDE LEVEL 97 MMOL/L (98-107); CK-MB VALUE MASS 1.9 NG/ML (<3.6); CPK CREATINE PHOSPHOKINASE 28 U/L (46-171); GLOMERULAR FILTRATION RATE > 60.0 (>42); GLUCOSE, FASTING 287 MG/DL (74-106); MB/CK RELATIVE INDEX 6.78 (< OR =4); POTASSIUM SERUM 4.4 MMOL/L (3.5-5.1); SODIUM LEVEL 132 MMOL/L (136-145); THYROID STIMULATING HORMONE 2.882 uIU/ML (0.55-4.78)
[2022-07-17] MEDS ORDERED: GI COCKTAIL 50ML BTL(HYOSCYAMINE/MAALOX/LIDOCAINE VISCOUS)(1:3:1) PO ONE (13:35)
[2022-07-17 14:16] LABS: CK-MB VALUE MASS 1.5 NG/ML (<3.6); MB/CK RELATIVE INDEX 6.81 (< OR =4)
[2022-07-17] MEDS ORDERED: CLON1TAB17 PO (15:43)
[2022-07-17 16:07] VITALS: BP 181/83
== END 2022-07-17 16:32 | disposition home or self-care (01) ==
LOC: EDBD 10:49 → M ED 10:49
DX: E11.65 Type 2 diabetes mellitus with hyperglycemia (principal); F13.239 Sedative, hypnotic or anxiolytic dependence with withdrawal, unspecified; I25.2 Old myocardial infarction; J44.9 Chronic obstructive pulmonary disease, unspecified; Z95.5 Presence of coronary angioplasty implant and graft; Z87.891 Personal history of nicotine dependence; Z88.0 Allergy status to penicillin; Z88.1 Allergy status to other antibiotic agents; Z88.2 Allergy status to sulfonamides; Z88.8 Allergy status to other drugs, medicaments and biological substances; Z79.51 Long term (current) use of inhaled steroids; Z79.4 Long term (current) use of insulin; Z79.899 Other long term (current) drug therapy

== ENCOUNTER 2022-07-25 23:07 | Emergency (ER) | payer MEDICARE, MEDICAID ==
[~2022-07-25 23:07] MED LIST changes: +CLON1TAB17 PO
[2022-07-26] LABS: BASO % 0.1 % (0.0-1.0); EOS # 0.1 10^3/uL (0.0-0.5); EOS % 0.8 % (0.0-3.0); HEMATOCRIT 36.1 % (42.0-52.0); HEMOGLOBIN 12.6 g/dl (13.5-17.5); LYMPH # 0.8 10^3/uL (1.5-5.0); LYMPH % 8.4 % (24.0-44.0); MEAN CORPUSCULAR HEMOGLOBIN 31.7 pg (27.0-33.0); MEAN CORPUSCULAR HGB CONC 34.9 g/dl (32.0-36.5); MEAN CORPUSCULAR VOLUME 90.9 fl (80.0-96.0); MONO # 0.5 10^3/uL (0.0-0.8); MONO % 5.3 % (2.0-8.0); NEUTROPHILS # 7.6 10^3/uL (1.5-8.5); NEUTROPHILS % 84.7 % (36.0-66.0); PLATELET COUNT, AUTOMATED 202 10^3/uL (150-450); RED BLOOD COUNT 3.97 10^6/uL (4.30-6.10); WHITE BLOOD COUNT 8.9 10^3/uL (4.0-10.0)
[2022-07-26 00:10] LABS: INR 0.98; PROTHROMBIN TIME 13.2 SECONDS (12.5-14.5)
[2022-07-26 00:30] LABS: LIPASE 55 U/L (12-53)
[2022-07-26 00:31] LABS: CK-MB VALUE MASS 1.1 NG/ML (<3.6)
[2022-07-26 00:32] LABS: ALBUMIN 2.9 G/DL (3.2-5.2); ALKALINE PHOSPHATASE 105 U/L (46-116); ALT/SGPT 14 U/L (7.0-40); AST/SGOT 13 U/L (<34); BILIRUBIN,DIRECT 0.1 MG/DL (<0.4); BILIRUBIN,TOTAL 0.3 MG/DL (0.3-1.2); BLOOD UREA NITROGEN 22 MG/DL (9-23); CALCIUM LEVEL 8.8 MG/DL (8.3-10.6); CARBON DIOXIDE LEVEL 24 MMOL/L (20-31); CHLORIDE LEVEL 97 MMOL/L (98-107); GLOMERULAR FILTRATION RATE > 60.0 (>42); GLUCOSE, FASTING 392 MG/DL (74-106); POTASSIUM SERUM 3.6 MMOL/L (3.5-5.1); SODIUM LEVEL 132 MMOL/L (136-145); TOTAL PROTEIN 6.7 G/DL (5.7-8.2)
[2022-07-26 00:34] LABS: MB/CK RELATIVE INDEX 3.14 (< OR =4)
[2022-07-26] MEDS ORDERED: ISOVUE-370 76% 100ML VIAL As Ordered ONE (00:48)
[2022-07-26 01:37] LABS: CK-MB VALUE MASS 1.1 NG/ML (<3.6)
[2022-07-26 01:40] LABS: MB/CK RELATIVE INDEX 2.75 (< OR =4)
[2022-07-26 02:38] VITALS: BP 174/88
== END 2022-07-26 02:57 | disposition home or self-care (01) ==
LOC: M ED 23:07 → EDBD 23:07 → M ED 07-26 02:57
DX: E11.65 Type 2 diabetes mellitus with hyperglycemia (principal); T83.091A Other mechanical complication of indwelling urethral catheter, initial encounter; I25.2 Old myocardial infarction; I49.1 Atrial premature depolarization; I10 Essential (primary) hypertension; J44.9 Chronic obstructive pulmonary disease, unspecified; Z87.891 Personal history of nicotine dependence; Z88.0 Allergy status to penicillin; Z88.1 Allergy status to other antibiotic agents; Z88.2 Allergy status to sulfonamides; Z88.8 Allergy status to other drugs, medicaments and biological substances
CPT/HCPCS: 36415; 71045; 71275; 74177; 76705; 80048; 80076; 82550; 82553; 83605; 83690; 84484; 85025; 85610; 85730; 87486; 87581; 87633; 87798; 93005; 93041; 94760; 99285; Q9967

== ENCOUNTER 2022-08-10 18:43 | Inpatient (IN) | payer MEDICARE, MEDICAID ==
[~2022-08-10] VITALS: Ht 180.3 cm; Wt 70.7 kg
[2022-08-10 19:09] LABS: BASO % 0.1 % (0.0-1.0); EOS # 0.1 10^3/uL (0.0-0.5); EOS % 0.5 % (0.0-3.0); HEMATOCRIT 37.7 % (42.0-52.0); HEMOGLOBIN 12.3 g/dl (13.5-17.5); LYMPH % 10.8 % (24.0-44.0); MEAN CORPUSCULAR HEMOGLOBIN 30.1 pg (27.0-33.0); MEAN CORPUSCULAR HGB CONC 32.6 g/dl (32.0-36.5); MEAN CORPUSCULAR VOLUME 92.4 fl (80.0-96.0); MONO # 0.6 10^3/uL (0.0-0.8); MONO % 6.5 % (2.0-8.0); NEUTROPHILS # 7.5 10^3/uL (1.5-8.5); NEUTROPHILS % 81.8 % (36.0-66.0); PLATELET COUNT, AUTOMATED 222 10^3/uL (150-450); RED BLOOD COUNT 4.08 10^6/uL (4.30-6.10); WHITE BLOOD COUNT 9.2 10^3/uL (4.0-10.0)
[2022-08-10 19:30] LABS: LIPASE 57 U/L (12-53)
[2022-08-10 19:33] LABS: ALKALINE PHOSPHATASE 92 U/L (46-116); ALT/SGPT 14 U/L (7.0-40); AST/SGOT 20 U/L (<34); BILIRUBIN,DIRECT 0.4 MG/DL (<0.4); BILIRUBIN,TOTAL 0.8 MG/DL (0.3-1.2); BLOOD UREA NITROGEN 21 MG/DL (9-23); CALCIUM LEVEL 8.8 MG/DL (8.3-10.6); CARBON DIOXIDE LEVEL 24 MMOL/L (20-31); CHLORIDE LEVEL 98 MMOL/L (98-107); CREATININE FOR GFR 1.18 MG/DL (0.70-1.30); GLOMERULAR FILTRATION RATE > 60.0 (>42); GLUCOSE, FASTING 150 MG/DL (74-106); POTASSIUM SERUM 3.8 MMOL/L (3.5-5.1); SODIUM LEVEL 133 MMOL/L (136-145); TOTAL PROTEIN 6.8 G/DL (5.7-8.2)
[2022-08-10] MEDS ORDERED: LABETALOL 100MG/20ML VIAL IV STA (19:42)
[2022-08-10] MEDS ORDERED: ISOVUE-370 76% 100ML VIAL As Ordered ONE (19:47)
[2022-08-10 19:58] LABS: CPK CREATINE PHOSPHOKINASE 71 U/L (46-171); MB/CK RELATIVE INDEX 2.81 (< OR =4)
[2022-08-10] MEDS: INSULIN LISPRO (NovoLOG) PER UNIT SC SCH (21:00)
[2022-08-10] MEDS: DOCUSATE SODIUM 100MG CAPSULE PO SCH (21:00)
[2022-08-10 21:13] LABS: CK-MB VALUE MASS 1.1 NG/ML (<3.6)
[2022-08-10 21:15] LABS: MB/CK RELATIVE INDEX 1.71 (< OR =4)
[2022-08-10] MEDS ORDERED: LOSA50TA28 PO (21:47)
[2022-08-10] MEDS ORDERED: AMLO1TAB24 PO (21:47)
[2022-08-10] MEDS ORDERED: HOME MED LIST COMPLETE! XX SCH (21:50)
[2022-08-10] MEDS ORDERED: clonazePAM 0.5 MG TAB PO ONE (22:20)
[2022-08-10] MEDS ORDERED: amLODIPine 5 MG TAB PO ONE (22:20)
[2022-08-10] MEDS ORDERED: **hydrALAZINE HCL** 25 MG TAB PO ONE (22:20)
[2022-08-10] MEDS ORDERED: GLUCAGON INJ 1MG VIAL SC PRN (22:30)
[2022-08-10] MEDS ORDERED: DEXTROSE 50% 50ML SYRINGE IV PRN (22:30)
[2022-08-10] MEDS ORDERED: NS 1,000 ML IV ONE (22:30)
[2022-08-10] MEDS ORDERED: GLUCOSE 4GM CHEW TABLET PO PRN (22:30)
[2022-08-10] MEDS ORDERED: ALBUTEROL 90 MCG/ACT 8GM HFA INHALER INH PRN (22:30)
[2022-08-10] MEDS ORDERED: ENOXAPARIN 100MG/1ML SYRINGE (J1650 PER 10MG) SC ONE (22:53)
[2022-08-11 00:18] LABS: RSV AMPLIFICATION NEGATIVE (NEGATIVE)
[2022-08-11 07:08] LABS: HEMATOCRIT 35.2 % (42.0-52.0); HEMOGLOBIN 11.6 g/dl (13.5-17.5); MEAN CORPUSCULAR HEMOGLOBIN 30.9 pg (27.0-33.0); MEAN CORPUSCULAR VOLUME 93.6 fl (80.0-96.0); PLATELET COUNT, AUTOMATED 200 10^3/uL (150-450); RED BLOOD COUNT 3.76 10^6/uL (4.30-6.10)
[2022-08-11 07:38] LABS: MAGNESIUM LEVEL 1.7 MG/DL (1.8-2.4)
[2022-08-11 07:40] LABS: BLOOD UREA NITROGEN 16 MG/DL (9-23); CARBON DIOXIDE LEVEL 26 MMOL/L (20-31); CHLORIDE LEVEL 103 MMOL/L (98-107); CREATININE FOR GFR 1.09 MG/DL (0.70-1.30); GLOMERULAR FILTRATION RATE > 60.0 (>42); GLUCOSE, FASTING 103 MG/DL (74-106); POTASSIUM SERUM 3.4 MMOL/L (3.5-5.1); SODIUM LEVEL 138 MMOL/L (136-145)
[2022-08-11] MEDS: INSULIN LISPRO (NovoLOG) PER UNIT SC SCH ×4 (07:48→20:33)
[2022-08-11] MEDS: DOCUSATE SODIUM 100MG CAPSULE PO SCH ×2 (08:29→20:30)
[2022-08-11] MEDS: TAMSULOSIN 0.4 MG CAP PO SCH (08:30)
[2022-08-11] MEDS: clonazePAM 1 MG TAB PO SCH ×2 (08:30→20:31)
[2022-08-11] MEDS: **hydrALAZINE HCL** 25 MG TAB PO SCH ×2 (08:30→12:55)
[2022-08-11] MEDS ORDERED: LOSARTAN 50MG TABLET PO SCH (09:00)
[2022-08-11] MEDS ORDERED: amLODIPine 5 MG TAB PO SCH (09:00)
[2022-08-11] MEDS: ISOSORBIDE DIN. (ISORDIL) 20 MG TAB PO SCH ×2 (10:21→12:07)
[2022-08-11] MEDS ORDERED: MAG SULF 1GM/100ML (MAG RUN) 1 GM in IV 1 EA IV ONE (11:00)
[2022-08-11] MEDS: POTASSIUM CHLORIDE 10MEQ SR TABLET PO SCH ×2 (11:26→20:31)
[2022-08-11] MEDS ORDERED: CARVedilol 12.5 MG TAB PO SCH ×2 (12:00→21:00)
[2022-08-11 14:39] LABS: POTASSIUM SERUM 3.6 MMOL/L (3.5-5.1)
[2022-08-11 14:47] LABS: MAGNESIUM LEVEL 1.9 MG/DL (1.8-2.4)
[2022-08-11 17:05] VITALS: BP 145/61
[2022-08-11 20:00] VITALS: BP 141/66
[2022-08-11] MEDS: ATORVASTATIN 20 MG TAB PO SCH (20:30)
[2022-08-11] MEDS: MAGNESIUM OXIDE 400MG TAB (MAG-OX) PO SCH (20:32)
[2022-08-11] MEDS ORDERED: **hydrALAZINE HCL** 25 MG TAB PO SCH (21:00)
[2022-08-11] MEDS ORDERED: ISOSORBIDE DIN. (ISORDIL) 20 MG TAB PO SCH (21:00)
[2022-08-12 04:21] VITALS: BP 147/68
[2022-08-12 06:01] LABS: BASO % 0.2 % (0.0-1.0); EOS # 0.2 10^3/uL (0.0-0.5); EOS % 3.4 % (0.0-3.0); HEMATOCRIT 32.3 % (42.0-52.0); HEMOGLOBIN 10.4 g/dl (13.5-17.5); LYMPH # 0.8 10^3/uL (1.5-5.0); LYMPH % 14.3 % (24.0-44.0); MEAN CORPUSCULAR HEMOGLOBIN 30.2 pg (27.0-33.0); MEAN CORPUSCULAR HGB CONC 32.2 g/dl (32.0-36.5); MEAN CORPUSCULAR VOLUME 93.9 fl (80.0-96.0); MONO # 0.5 10^3/uL (0.0-0.8); MONO % 8.1 % (2.0-8.0); NEUTROPHILS # 4.1 10^3/uL (1.5-8.5); NEUTROPHILS % 73.6 % (36.0-66.0); PLATELET COUNT, AUTOMATED 196 10^3/uL (150-450); RED BLOOD COUNT 3.44 10^6/uL (4.30-6.10); WHITE BLOOD COUNT 5.6 10^3/uL (4.0-10.0)
[2022-08-12] MEDS ORDERED: ISOSORBIDE DIN. (ISORDIL) 30 MG TAB PO ONE (07:45)
[2022-08-12] MEDS ORDERED: AMLO1TAB25 PO (07:55)
[2022-08-12] MEDS ORDERED: ISOS30TAB PO (07:55)
[2022-08-12] MEDS ORDERED: HYDR25TA PO (07:55)
[2022-08-12] MEDS ORDERED: CLON1TAB8 PO (07:55)
[2022-08-12 08:00] VITALS: BP 166/82
[2022-08-12] MEDS: INSULIN LISPRO (NovoLOG) PER UNIT SC SCH ×4 (08:24→20:02)
[2022-08-12] MEDS: POTASSIUM CHLORIDE 10MEQ SR TABLET PO SCH (08:26)
[2022-08-12] MEDS: clonazePAM 1 MG TAB PO SCH ×2 (08:26→20:04)
[2022-08-12] MEDS: TAMSULOSIN 0.4 MG CAP PO SCH (08:27)
[2022-08-12] MEDS: MAGNESIUM OXIDE 400MG TAB (MAG-OX) PO SCH (08:27)
[2022-08-12] MEDS: DOCUSATE SODIUM 100MG CAPSULE PO SCH ×2 (08:28→20:05)
[2022-08-12 08:43] LABS: BLOOD UREA NITROGEN 18 MG/DL (9-23); CALCIUM LEVEL 8.2 MG/DL (8.3-10.6); CARBON DIOXIDE LEVEL 26 MMOL/L (20-31); CHLORIDE LEVEL 105 MMOL/L (98-107); CREATININE FOR GFR 1.07 MG/DL (0.70-1.30); GLOMERULAR FILTRATION RATE > 60.0 (>42); GLUCOSE, FASTING 110 MG/DL (74-106); POTASSIUM SERUM 4.5 MMOL/L (3.5-5.1); SODIUM LEVEL 138 MMOL/L (136-145)
[2022-08-12] MEDS ORDERED: **hydrALAZINE HCL** 25 MG TAB PO SCH (09:00)
[2022-08-12] MEDS ORDERED: ISOSORBIDE DIN. (ISORDIL) 30 MG TAB PO SCH (09:00)
[2022-08-12] MEDS ORDERED: **hydrALAZINE HCL** 25 MG TAB PO ONE (11:40)
[2022-08-12 12:00] VITALS: BP 148/62
[2022-08-12 16:00] VITALS: BP_SYST 137; BP_SYST 140; BP_SYST 157; BP_DIAS 65; BP_DIAS 68; BP_DIAS 74
[2022-08-12] MEDS: ISOSORBIDE DIN. (ISORDIL) 30 MG TAB PO SCH (20:04)
[2022-08-12] MEDS: ATORVASTATIN 20 MG TAB PO SCH (20:04)
[2022-08-12] MEDS: **hydrALAZINE** 50 MG TAB PO SCH (20:05)
[2022-08-12 21:00] VITALS: BP_SYST 134; BP_SYST 150; BP_SYST 164; BP_DIAS 63; BP_DIAS 70; BP_DIAS 72
[2022-08-13] VITALS (7 sets, daily range): BP systolic 91–180; BP diastolic 55–80
[2022-08-13 05:16] LABS: BASO % 0.2 % (0.0-1.0); EOS # 0.2 10^3/uL (0.0-0.5); EOS % 3.1 % (0.0-3.0); HEMATOCRIT 31.6 % (42.0-52.0); HEMOGLOBIN 10.4 g/dl (13.5-17.5); LYMPH % 18.5 % (24.0-44.0); MEAN CORPUSCULAR HEMOGLOBIN 31.3 pg (27.0-33.0); MEAN CORPUSCULAR HGB CONC 32.9 g/dl (32.0-36.5); MEAN CORPUSCULAR VOLUME 95.2 fl (80.0-96.0); MONO # 0.4 10^3/uL (0.0-0.8); MONO % 8.4 % (2.0-8.0); NEUTROPHILS # 3.6 10^3/uL (1.5-8.5); NEUTROPHILS % 69.6 % (36.0-66.0); PLATELET COUNT, AUTOMATED 199 10^3/uL (150-450); RED BLOOD COUNT 3.32 10^6/uL (4.30-6.10); WHITE BLOOD COUNT 5.2 10^3/uL (4.0-10.0)
[2022-08-13] MEDS: INSULIN LISPRO (NovoLOG) PER UNIT SC SCH ×4 (08:33→19:50)
[2022-08-13] MEDS: DOCUSATE SODIUM 100MG CAPSULE PO SCH ×2 (08:35→19:26)
[2022-08-13] MEDS: clonazePAM 1 MG TAB PO SCH ×2 (08:35→19:50)
[2022-08-13] MEDS: **hydrALAZINE** 50 MG TAB PO SCH ×4 (08:36→23:09)
[2022-08-13] MEDS: TAMSULOSIN 0.4 MG CAP PO SCH (08:41)
[2022-08-13] MEDS: ISOSORBIDE DIN. (ISORDIL) 30 MG TAB PO SCH ×2 (08:41→19:51)
[2022-08-13] MEDS: ATORVASTATIN 20 MG TAB PO SCH (19:51)
[2022-08-14 04:16] VITALS: BP 173/78
[2022-08-14] MEDS: ISOSORBIDE DIN. (ISORDIL) 20 MG TAB PO SCH ×3 (06:00→21:26)
[2022-08-14] MEDS: **hydrALAZINE** 50 MG TAB PO SCH ×4 (06:02→23:11)
[2022-08-14 07:19] LABS: RED BLOOD COUNT 3.53 10^6/uL (4.30-6.10); WHITE BLOOD COUNT 5.4 10^3/uL (4.0-10.0)
[2022-08-14 07:20] LABS: BASO % 0.2 % (0.0-1.0); EOS # 0.1 10^3/uL (0.0-0.5); EOS % 2.4 % (0.0-3.0); HEMATOCRIT 33.1 % (42.0-52.0); HEMOGLOBIN 10.8 g/dl (13.5-17.5); LYMPH # 0.9 10^3/uL (1.5-5.0); LYMPH % 16.8 % (24.0-44.0); MEAN CORPUSCULAR HEMOGLOBIN 30.6 pg (27.0-33.0); MEAN CORPUSCULAR HGB CONC 32.6 g/dl (32.0-36.5); MEAN CORPUSCULAR VOLUME 93.8 fl (80.0-96.0); MONO # 0.4 10^3/uL (0.0-0.8); MONO % 7.3 % (2.0-8.0); NEUTROPHILS # 3.9 10^3/uL (1.5-8.5); NEUTROPHILS % 72.9 % (36.0-66.0); PLATELET COUNT, AUTOMATED 220 10^3/uL (150-450)
[2022-08-14] MEDS: INSULIN LISPRO (NovoLOG) PER UNIT SC SCH ×4 (07:30→20:07)
[2022-08-14 08:00] VITALS: BP 169/76
[2022-08-14] MEDS: TAMSULOSIN 0.4 MG CAP PO SCH (09:29)
[2022-08-14] MEDS: DOCUSATE SODIUM 100MG CAPSULE PO SCH ×2 (09:29→20:07)
[2022-08-14] MEDS: clonazePAM 1 MG TAB PO SCH ×2 (09:29→20:07)
[2022-08-14] MEDS: ACETAMINOPHEN TAB 650MG DOSE (2X325MG) PO PRN (09:29)
[2022-08-14 10:20] LABS: MAGNESIUM LEVEL 1.9 MG/DL (1.8-2.4)
[2022-08-14 10:22] LABS: BLOOD UREA NITROGEN 14 MG/DL (9-23); CALCIUM LEVEL 8.3 MG/DL (8.3-10.6); CARBON DIOXIDE LEVEL 24 MMOL/L (20-31); CHLORIDE LEVEL 104 MMOL/L (98-107); CREATININE FOR GFR 1.01 MG/DL (0.70-1.30); GLOMERULAR FILTRATION RATE > 60.0 (>42); GLUCOSE, FASTING 151 MG/DL (74-106); POTASSIUM SERUM 4.1 MMOL/L (3.5-5.1); SODIUM LEVEL 136 MMOL/L (136-145)
[2022-08-14] MEDS: cloNIDine 0.1MG TABLET PO SCH ×3 (11:53→23:12)
[2022-08-14 12:00] VITALS: BP 175/78
[2022-08-14 14:13] VITALS: BP 132/64
[2022-08-14 17:20] VITALS: BP 133/66
[2022-08-14 20:00] VITALS: BP 136/64
[2022-08-14] MEDS: ATORVASTATIN 20 MG TAB PO SCH (20:07)
[2022-08-15] MEDS: **hydrALAZINE** 50 MG TAB PO SCH ×3 (05:32→18:37)
[2022-08-15] MEDS: ISOSORBIDE DIN. (ISORDIL) 20 MG TAB PO SCH ×3 (05:32→22:16)
[2022-08-15] MEDS: cloNIDine 0.1MG TABLET PO SCH ×3 (05:32→18:37)
[2022-08-15 07:59] VITALS: BP 125/64
[2022-08-15 10:17] VITALS: BP 142/65
[2022-08-15] MEDS: INSULIN LISPRO (NovoLOG) PER UNIT SC SCH ×4 (10:20→22:15)
[2022-08-15] MEDS: clonazePAM 1 MG TAB PO SCH ×2 (10:21→20:26)
[2022-08-15] MEDS: TAMSULOSIN 0.4 MG CAP PO SCH (10:21)
[2022-08-15] MEDS: DOCUSATE SODIUM 100MG CAPSULE PO SCH ×2 (10:21→20:29)
[2022-08-15 10:46] LABS: BLOOD UREA NITROGEN 16 MG/DL (9-23); CARBON DIOXIDE LEVEL 25 MMOL/L (20-31); CHLORIDE LEVEL 103 MMOL/L (98-107); GLOMERULAR FILTRATION RATE > 60.0 (>42); GLUCOSE, FASTING 217 MG/DL (74-106); POTASSIUM SERUM 4.1 MMOL/L (3.5-5.1); SODIUM LEVEL 135 MMOL/L (136-145)
[2022-08-15 13:43] VITALS: BP 128/60
[2022-08-15 16:45] VITALS: BP 137/63
[2022-08-15 18:33] VITALS: BP 172/74
[2022-08-15 19:21] VITALS: BP 147/71
[2022-08-15] MEDS: ATORVASTATIN 20 MG TAB PO SCH (20:26)
[2022-08-16 04:59] LABS: BLOOD UREA NITROGEN 19 MG/DL (9-23); CALCIUM LEVEL 7.7 MG/DL (8.3-10.6); CARBON DIOXIDE LEVEL 25 MMOL/L (20-31); CHLORIDE LEVEL 103 MMOL/L (98-107); CREATININE FOR GFR 1.23 MG/DL (0.70-1.30); GLOMERULAR FILTRATION RATE > 60.0 (>42); GLUCOSE, FASTING 185 MG/DL (74-106); SODIUM LEVEL 135 MMOL/L (136-145)
[2022-08-16 05:07] VITALS: BP 134/63
[2022-08-16] MEDS: ISOSORBIDE DIN. (ISORDIL) 20 MG TAB PO SCH ×3 (05:09→21:18)
[2022-08-16] MEDS: cloNIDine 0.1MG TABLET PO SCH ×5 (05:09→23:09)
[2022-08-16] MEDS: **hydrALAZINE** 50 MG TAB PO SCH ×5 (05:09→23:09)
[2022-08-16] MEDS: DOCUSATE SODIUM 100MG CAPSULE PO SCH ×2 (08:18→20:12)
[2022-08-16] MEDS: clonazePAM 1 MG TAB PO SCH ×2 (08:18→20:12)
[2022-08-16] MEDS: TAMSULOSIN 0.4 MG CAP PO SCH (08:19)
[2022-08-16] MEDS: INSULIN LISPRO (NovoLOG) PER UNIT SC SCH ×4 (08:19→20:12)
[2022-08-16 09:00] VITALS: BP 164/79
[2022-08-16 14:34] VITALS: BP 122/74
[2022-08-16] MEDS ORDERED: **hydrALAZINE** 50 MG TAB PO ONE (16:00)
[2022-08-16 20:00] VITALS: BP 156/69
[2022-08-16] MEDS: ATORVASTATIN 20 MG TAB PO SCH (20:12)
[2022-08-17 05:31] LABS: BLOOD UREA NITROGEN 18 MG/DL (9-23); CARBON DIOXIDE LEVEL 26 MMOL/L (20-31); CHLORIDE LEVEL 104 MMOL/L (98-107); CREATININE FOR GFR 1.09 MG/DL (0.70-1.30); GLOMERULAR FILTRATION RATE > 60.0 (>42); GLUCOSE, FASTING 169 MG/DL (74-106); POTASSIUM SERUM 4.3 MMOL/L (3.5-5.1); SODIUM LEVEL 137 MMOL/L (136-145)
[2022-08-17] MEDS: **hydrALAZINE** 50 MG TAB PO SCH ×3 (05:49→17:05)
[2022-08-17] MEDS: ISOSORBIDE DIN. (ISORDIL) 20 MG TAB PO SCH ×3 (05:50→22:31)
[2022-08-17] MEDS: cloNIDine 0.1MG TABLET PO SCH ×3 (05:50→17:06)
[2022-08-17 08:00] VITALS: BP 188/74
[2022-08-17] MEDS: TAMSULOSIN 0.4 MG CAP PO SCH (08:21)
[2022-08-17] MEDS: DOCUSATE SODIUM 100MG CAPSULE PO SCH ×2 (08:21→20:38)
[2022-08-17] MEDS: INSULIN LISPRO (NovoLOG) PER UNIT SC SCH ×4 (08:21→20:37)
[2022-08-17] MEDS: clonazePAM 1 MG TAB PO SCH ×2 (08:22→20:38)
[2022-08-17 13:04] VITALS: BP 160/68
[2022-08-17 15:16] VITALS: BP 122/60
[2022-08-17] MEDS: ATORVASTATIN 20 MG TAB PO SCH (20:38)
[2022-08-17 22:00] VITALS: BP 152/70
[2022-08-18] MEDS: **hydrALAZINE** 50 MG TAB PO SCH ×4 (00:48→17:32)
[2022-08-18 00:50] VITALS: BP 148/68
[2022-08-18 06:00] VITALS: BP 159/69
[2022-08-18] MEDS: cloNIDine 0.1MG TABLET PO SCH ×4 (06:00→17:31)
[2022-08-18 06:07] LABS: BLOOD UREA NITROGEN 19 MG/DL (9-23); CALCIUM LEVEL 8.1 MG/DL (8.3-10.6); CARBON DIOXIDE LEVEL 25 MMOL/L (20-31); CHLORIDE LEVEL 103 MMOL/L (98-107); CREATININE FOR GFR 1.12 MG/DL (0.70-1.30); GLOMERULAR FILTRATION RATE > 60.0 (>42); GLUCOSE, FASTING 130 MG/DL (74-106); POTASSIUM SERUM 3.9 MMOL/L (3.5-5.1); SODIUM LEVEL 135 MMOL/L (136-145)
[2022-08-18] MEDS: ISOSORBIDE DIN. (ISORDIL) 20 MG TAB PO SCH ×3 (06:24→22:02)
[2022-08-18 08:00] VITALS: BP 141/65
[2022-08-18] MEDS: INSULIN LISPRO (NovoLOG) PER UNIT SC SCH ×4 (08:18→22:02)
[2022-08-18] MEDS: clonazePAM 1 MG TAB PO SCH ×2 (08:18→22:00)
[2022-08-18] MEDS: DOCUSATE SODIUM 100MG CAPSULE PO SCH ×2 (08:19→22:01)
[2022-08-18] MEDS: TAMSULOSIN 0.4 MG CAP PO SCH (08:19)
[2022-08-18 11:04] VITALS: BP 142/63
[2022-08-18] MEDS: ATORVASTATIN 20 MG TAB PO SCH (22:01)
[2022-08-19 00:37] VITALS: BP 145/67
[2022-08-19] MEDS: **hydrALAZINE** 50 MG TAB PO SCH ×4 (00:53→17:08)
[2022-08-19 05:55] LABS: BLOOD UREA NITROGEN 18 MG/DL (9-23); CALCIUM LEVEL 8.2 MG/DL (8.3-10.6); CARBON DIOXIDE LEVEL 26 MMOL/L (20-31); CHLORIDE LEVEL 105 MMOL/L (98-107); CREATININE FOR GFR 1.16 MG/DL (0.70-1.30); GLOMERULAR FILTRATION RATE > 60.0 (>42); GLUCOSE, FASTING 129 MG/DL (74-106); POTASSIUM SERUM 3.8 MMOL/L (3.5-5.1); SODIUM LEVEL 138 MMOL/L (136-145)
[2022-08-19 06:07] VITALS: BP 166/72
[2022-08-19] MEDS: ISOSORBIDE DIN. (ISORDIL) 20 MG TAB PO SCH ×3 (06:26→21:26)
[2022-08-19] MEDS: cloNIDine 0.1MG TABLET PO SCH ×4 (06:26→17:09)
[2022-08-19] MEDS: INSULIN LISPRO (NovoLOG) PER UNIT SC SCH ×4 (07:51→21:00)
[2022-08-19] MEDS: TAMSULOSIN 0.4 MG CAP PO SCH (07:52)
[2022-08-19] MEDS: clonazePAM 1 MG TAB PO SCH ×2 (07:52→21:25)
[2022-08-19] MEDS: DOCUSATE SODIUM 100MG CAPSULE PO SCH ×2 (07:52→21:25)
[2022-08-19 08:16] VITALS: BP 128/60
[2022-08-19 11:56] VITALS: BP_SYST 133; BP_SYST 138; BP_SYST 157; BP_DIAS 65; BP_DIAS 66; BP_DIAS 69
[2022-08-19 18:38] LABS: INR 1.03; PROTHROMBIN TIME 13.7 SECONDS (12.5-14.5)
[2022-08-19 18:39] LABS: PARTIAL THROMBOPLASTIN TIME 32.1 SECONDS (24.8-34.2)
[2022-08-19 20:00] VITALS: BP 149/65
[2022-08-19] MEDS: ATORVASTATIN 20 MG TAB PO SCH (21:25)
[2022-08-20] MEDS: **hydrALAZINE** 50 MG TAB PO SCH ×3 (05:45→12:00)
[2022-08-20] MEDS: ISOSORBIDE DIN. (ISORDIL) 20 MG TAB PO SCH ×2 (05:45→14:15)
[2022-08-20] MEDS: cloNIDine 0.1MG TABLET PO SCH ×3 (05:46→12:11)
[2022-08-20] MEDS: ACETAMINOPHEN TAB 650MG DOSE (2X325MG) PO PRN (05:47)
[2022-08-20] MEDS: DOCUSATE SODIUM 100MG CAPSULE PO SCH (07:51)
[2022-08-20] MEDS: TAMSULOSIN 0.4 MG CAP PO SCH (07:52)
[2022-08-20] MEDS: clonazePAM 1 MG TAB PO SCH (07:52)
[2022-08-20] MEDS: INSULIN LISPRO (NovoLOG) PER UNIT SC SCH ×2 (07:54→12:12)
[2022-08-20 08:21] VITALS: BP 127/60
[2022-08-20] MEDS ORDERED: LEVEMIR (INSULIN DETEMIR) 1 UNITS/0.01ML SC SCH (09:00)
[2022-08-20] MEDS ORDERED: ENOXAPARIN 40MG/0.4ML SYRINGE (J1650 PER 10MG) SC SCH (09:00)
[2022-08-20] MEDS ORDERED: ISOS20TA4 PO (12:14)
[2022-08-20] MEDS ORDERED: HYDR50TA PO (12:16)
[2022-08-20] MEDS ORDERED: COLA100C5 PO (12:16)
[2022-08-20] MEDS ORDERED: CLONI1TA PO (12:16)
[2022-08-20 14:15] VITALS: BP 142/69
== END 2022-08-20 14:26 | disposition home health service (06) | DRG 699 ==
LOC: M ED 18:43 → M ED INP 22:18 → OBSVTOIN 08-11 10:00 → ENRESERV 08-11 14:55 → M PCU 08-11 16:40
PROVIDERS: ADMIT Internal Medicine; ATTEND Internal Medicine
DX: I70.1 Atherosclerosis of renal artery (principal); N13.30 Unspecified hydronephrosis; T82.599A Other mechanical complication of unspecified cardiac and vascular devices and implants, initial encounter; I16.0 Hypertensive urgency; E11.51 Type 2 diabetes mellitus with diabetic peripheral angiopathy without gangrene; I10 Essential (primary) hypertension; R19.7 Diarrhea, unspecified; Z95.9 Presence of cardiac and vascular implant and graft, unspecified; E87.6 Hypokalemia; E83.42 Hypomagnesemia; F41.9 Anxiety disorder, unspecified; N40.0 Benign prostatic hyperplasia without lower urinary tract symptoms; E78.5 Hyperlipidemia, unspecified; F32.A Depression, unspecified; I25.10 Atherosclerotic heart disease of native coronary artery without angina pectoris; I95.1 Orthostatic hypotension; Z85.118 Personal history of other malignant neoplasm of bronchus and lung; Z88.2 Allergy status to sulfonamides; Z88.8 Allergy status to other drugs, medicaments and biological substances; Z88.0 Allergy status to penicillin; Z79.899 Other long term (current) drug therapy; Z95.2 Presence of prosthetic heart valve; Z98.41 Cataract extraction status, right eye; Z98.42 Cataract extraction status, left eye

== ENCOUNTER 2022-09-01 11:26 | Inpatient (IN) | payer MEDICARE, MEDICAID ==
[~2022-09-01] VITALS: Ht 180.3 cm; Wt 72.7 kg
[~2022-09-01 11:26] MED LIST changes: +AMLO1TAB25 PO; +CLONI1TA PO; +COLA100C5 PO; +HYDR25TA PO; +HYDR50TA PO; +ISOS20TA4 PO; +ISOS30TAB PO; +LOSA50TA28 PO
[2022-09-01] MEDS ORDERED: HYDR-3911 PO (11:51)
[2022-09-01] MEDS ORDERED: ANOR1AER (11:51)
[2022-09-01] MEDS ORDERED: LIDOCAINE 2% 5ML JELLY UROJET TOP ONE (16:55)
[2022-09-01 18:09] LABS: EOS # 0.1 10^3/uL (0.0-0.5); EOS % 1.7 % (0.0-3.0); HEMATOCRIT 37.1 % (42.0-52.0); HEMOGLOBIN 12.4 g/dl (13.5-17.5); LYMPH # 0.8 10^3/uL (1.5-5.0); MEAN CORPUSCULAR HEMOGLOBIN 30.9 pg (27.0-33.0); MEAN CORPUSCULAR HGB CONC 33.4 g/dl (32.0-36.5); MEAN CORPUSCULAR VOLUME 92.5 fl (80.0-96.0); MONO # 0.4 10^3/uL (0.0-0.8); MONO % 8.7 % (2.0-8.0); NEUTROPHILS # 3.5 10^3/uL (1.5-8.5); NEUTROPHILS % 73.4 % (36.0-66.0); PLATELET COUNT, AUTOMATED 188 10^3/uL (150-450); RED BLOOD COUNT 4.01 10^6/uL (4.30-6.10); WHITE BLOOD COUNT 4.8 10^3/uL (4.0-10.0)
[2022-09-01] MEDS ORDERED: ISOSORBIDE DIN. (ISORDIL) 20 MG TAB PO ONE (18:25)
[2022-09-01] MEDS ORDERED: clonazePAM 1 MG TAB PO ONE (18:25)
[2022-09-01] MEDS ORDERED: cloNIDine 0.1MG TABLET PO ONE (18:25)
[2022-09-01 18:43] LABS: BILIRUBIN,DIRECT 0.2 MG/DL (<0.4)
[2022-09-01 18:44] LABS: ALKALINE PHOSPHATASE 112 U/L (46-116); ALT/SGPT 13 U/L (7.0-40); AST/SGOT 16 U/L (<34); BILIRUBIN,TOTAL 0.5 MG/DL (0.3-1.2); BLOOD UREA NITROGEN 19 MG/DL (9-23); CALCIUM LEVEL 8.9 MG/DL (8.3-10.6); CARBON DIOXIDE LEVEL 29 MMOL/L (20-31); CHLORIDE LEVEL 100 MMOL/L (98-107); CK-MB VALUE MASS 1.5 NG/ML (<3.6); CPK CREATINE PHOSPHOKINASE 48 U/L (46-171); CREATININE FOR GFR 1.24 MG/DL (0.70-1.30); GLOMERULAR FILTRATION RATE > 60.0 (>42); GLUCOSE, FASTING 196 MG/DL (74-106); MB/CK RELATIVE INDEX 3.12 (< OR =4); POTASSIUM SERUM 3.8 MMOL/L (3.5-5.1); SODIUM LEVEL 138 MMOL/L (136-145); TOTAL PROTEIN 6.9 G/DL (5.7-8.2)
[2022-09-01 18:46] LABS: THYROID STIMULATING HORMONE 3.384 uIU/ML (0.55-4.78)
[2022-09-01 18:49] LABS: RSV AMPLIFICATION NEGATIVE (NEGATIVE)
[2022-09-01] MEDS ORDERED: ISOS30TAB PO (20:47)
[2022-09-01] MEDS ORDERED: ISOS20TA4 PO (20:49)
[2022-09-01] MEDS ORDERED: HOME MED LIST COMPLETE! XX SCH (20:50)
[2022-09-01] MEDS ORDERED: ALBUTEROL 90 MCG/ACT 8GM HFA INHALER INH PRN (21:20)
[2022-09-01] MEDS ORDERED: DEXTROSE 50% 50ML SYRINGE IV PRN (21:35)
[2022-09-01] MEDS ORDERED: GLUCOSE 4GM CHEW TABLET PO PRN (21:35)
[2022-09-01] MEDS ORDERED: GLUCAGON INJ 1MG VIAL SC PRN (21:35)
[2022-09-01 21:56] LABS: MAGNESIUM LEVEL 1.9 MG/DL (1.8-2.4)
[2022-09-01] MEDS: ISOSORBIDE DIN. (ISORDIL) 20 MG TAB PO SCH (22:00)
[2022-09-01] MEDS: **hydrALAZINE** 50 MG TAB PO SCH (22:35)
[2022-09-02] MEDS: cloNIDine 0.1MG TABLET PO SCH ×5 (00:17→23:51)
[2022-09-02 07:01] LABS: HEMATOCRIT 32.3 % (42.0-52.0); HEMOGLOBIN 10.5 g/dl (13.5-17.5); MEAN CORPUSCULAR HEMOGLOBIN 30.4 pg (27.0-33.0); MEAN CORPUSCULAR HGB CONC 32.5 g/dl (32.0-36.5); MEAN CORPUSCULAR VOLUME 93.6 fl (80.0-96.0); PLATELET COUNT, AUTOMATED 159 10^3/uL (150-450); RED BLOOD COUNT 3.45 10^6/uL (4.30-6.10); WHITE BLOOD COUNT 3.6 10^3/uL (4.0-10.0)
[2022-09-02 07:26] LABS: MAGNESIUM LEVEL 1.9 MG/DL (1.8-2.4)
[2022-09-02] MEDS: INSULIN LISPRO (NovoLOG) PER UNIT SC SCH ×4 (07:30→20:05)
[2022-09-02 07:31] LABS: ALBUMIN 3.9 G/DL (3.2-5.2); ALKALINE PHOSPHATASE 68 U/L (46-116); ALT/SGPT 12 U/L (7.0-40); AST/SGOT 15 U/L (<34); BILIRUBIN,TOTAL 0.6 MG/DL (0.3-1.2); BLOOD UREA NITROGEN 10 MG/DL (9-23); CALCIUM LEVEL 8.6 MG/DL (8.3-10.6); CARBON DIOXIDE LEVEL 22 MMOL/L (20-31); CHLORIDE LEVEL 111 MMOL/L (98-107); CREATININE FOR GFR 0.55 MG/DL (0.70-1.30); GLOMERULAR FILTRATION RATE > 60.0 (>42); GLUCOSE, FASTING 83 MG/DL (74-106); POTASSIUM SERUM 3.1 MMOL/L (3.5-5.1); SODIUM LEVEL 143 MMOL/L (136-145); TOTAL PROTEIN 6.2 G/DL (5.7-8.2)
[2022-09-02] MEDS ORDERED: POTASSIUM CHLORIDE 10MEQ SR TABLET PO ONE (07:50)
[2022-09-02 08:00] VITALS: BP 96/55
[2022-09-02] MEDS: ISOSORBIDE DIN. (ISORDIL) 20 MG TAB PO SCH ×3 (08:21→22:00)
[2022-09-02] MEDS: **hydrALAZINE** 50 MG TAB PO SCH ×4 (09:00→20:17)
[2022-09-02] MEDS: ENOXAPARIN 40MG/0.4ML SYRINGE (J1650 PER 10MG) SC SCH (09:03)
[2022-09-02] MEDS: DOCUSATE SODIUM 100MG CAPSULE PO SCH (09:04)
[2022-09-02] MEDS: clonazePAM 1 MG TAB PO SCH ×2 (09:04→20:18)
[2022-09-02 09:06] VITALS: BP_SYST 113; BP_SYST 122; BP_DIAS 55; BP_DIAS 58
[2022-09-02 13:23] LABS: HEMATOCRIT 35.8 % (42.0-52.0); HEMOGLOBIN 11.5 g/dl (13.5-17.5)
[2022-09-02 14:00] VITALS: BP 95/54
[2022-09-02 16:15] VITALS: BP 107/51
[2022-09-02] MEDS: ACETAMINOPHEN TAB 650MG DOSE (2X325MG) PO PRN (18:19)
[2022-09-02] MEDS: ATORVASTATIN 20 MG TAB PO SCH (20:18)
[2022-09-03 05:58] VITALS: BP 116/49
[2022-09-03] MEDS: ISOSORBIDE DIN. (ISORDIL) 20 MG TAB PO SCH ×3 (06:00→22:00)
[2022-09-03] MEDS: cloNIDine 0.1MG TABLET PO SCH ×4 (06:00→20:22)
[2022-09-03 08:22] LABS: HEMATOCRIT 31.8 % (42.0-52.0); HEMOGLOBIN 10.3 g/dl (13.5-17.5)
[2022-09-03] MEDS: DOCUSATE SODIUM 100MG CAPSULE PO SCH (08:41)
[2022-09-03] MEDS: clonazePAM 1 MG TAB PO SCH ×2 (08:41→20:21)
[2022-09-03] MEDS: **hydrALAZINE** 50 MG TAB PO SCH ×4 (08:41→20:22)
[2022-09-03] MEDS: INSULIN LISPRO (NovoLOG) PER UNIT SC SCH ×4 (08:42→21:00)
[2022-09-03] MEDS: ENOXAPARIN 40MG/0.4ML SYRINGE (J1650 PER 10MG) SC SCH (08:42)
[2022-09-03 09:03] LABS: CALCIUM LEVEL 8.3 MG/DL (8.3-10.6); CREATININE FOR GFR 1.31 MG/DL (0.70-1.30); GLOMERULAR FILTRATION RATE 57.6 (>42)
[2022-09-03] MEDS: ATORVASTATIN 20 MG TAB PO SCH (20:21)
[2022-09-03] MEDS: ACETAMINOPHEN TAB 650MG DOSE (2X325MG) PO PRN ×2 (20:21→21:56)
[2022-09-04] MEDS: ISOSORBIDE DIN. (ISORDIL) 20 MG TAB PO SCH ×3 (05:15→20:49)
[2022-09-04 06:00] VITALS: BP 137/57
[2022-09-04] MEDS: INSULIN LISPRO (NovoLOG) PER UNIT SC SCH ×4 (08:20→20:50)
[2022-09-04] MEDS: ENOXAPARIN 40MG/0.4ML SYRINGE (J1650 PER 10MG) SC SCH (08:20)
[2022-09-04] MEDS: DOCUSATE SODIUM 100MG CAPSULE PO SCH (08:20)
[2022-09-04] MEDS: clonazePAM 1 MG TAB PO SCH ×2 (08:22→20:46)
[2022-09-04] MEDS: cloNIDine 0.1MG TABLET PO SCH ×3 (08:23→20:49)
[2022-09-04] MEDS: **hydrALAZINE** 50 MG TAB PO SCH ×4 (08:23→20:49)
[2022-09-04 14:00] VITALS: BP 132/63
[2022-09-04] MEDS: ATORVASTATIN 20 MG TAB PO SCH (20:46)
[2022-09-04] MEDS: ACETAMINOPHEN TAB 650MG DOSE (2X325MG) PO PRN (20:50)
[2022-09-05] MEDS: ISOSORBIDE DIN. (ISORDIL) 20 MG TAB PO SCH ×3 (05:47→20:45)
[2022-09-05] MEDS: ACETAMINOPHEN TAB 650MG DOSE (2X325MG) PO PRN ×2 (05:47→20:46)
[2022-09-05 06:00] VITALS: BP 114/56
[2022-09-05] MEDS: **hydrALAZINE** 50 MG TAB PO SCH ×4 (08:12→20:46)
[2022-09-05] MEDS: cloNIDine 0.1MG TABLET PO SCH ×3 (08:13→20:46)
[2022-09-05] MEDS: INSULIN LISPRO (NovoLOG) PER UNIT SC SCH ×4 (08:20→20:46)
[2022-09-05] MEDS: ENOXAPARIN 40MG/0.4ML SYRINGE (J1650 PER 10MG) SC SCH (08:20)
[2022-09-05] MEDS: clonazePAM 1 MG TAB PO SCH ×2 (08:21→20:46)
[2022-09-05] MEDS: DOCUSATE SODIUM 100MG CAPSULE PO SCH (08:22)
[2022-09-05] MEDS: BACITRACIN OINTMENT 30GM TUBE TOP SCH (09:27)
[2022-09-05] MEDS: ATORVASTATIN 20 MG TAB PO SCH (20:45)
[2022-09-06 05:00] VITALS: BP 131/66
[2022-09-06] MEDS: ISOSORBIDE DIN. (ISORDIL) 20 MG TAB PO SCH ×3 (05:06→21:36)
[2022-09-06] MEDS: ACETAMINOPHEN TAB 650MG DOSE (2X325MG) PO PRN (05:06)
[2022-09-06] MEDS: INSULIN LISPRO (NovoLOG) PER UNIT SC SCH ×4 (08:09→21:00)
[2022-09-06] MEDS: **hydrALAZINE** 50 MG TAB PO SCH ×4 (08:10→21:39)
[2022-09-06] MEDS: cloNIDine 0.1MG TABLET PO SCH ×3 (08:10→21:38)
[2022-09-06] MEDS: DOCUSATE SODIUM 100MG CAPSULE PO SCH (08:10)
[2022-09-06] MEDS: clonazePAM 1 MG TAB PO SCH ×2 (08:10→21:37)
[2022-09-06] MEDS: ENOXAPARIN 40MG/0.4ML SYRINGE (J1650 PER 10MG) SC SCH (08:11)
[2022-09-06] MEDS: BACITRACIN OINTMENT 30GM TUBE TOP SCH (08:14)
[2022-09-06] MEDS: ATORVASTATIN 20 MG TAB PO SCH (21:35)
[2022-09-07 05:07] VITALS: BP 152/62
[2022-09-07] MEDS: ISOSORBIDE DIN. (ISORDIL) 20 MG TAB PO SCH ×3 (05:20→21:36)
[2022-09-07] MEDS: INSULIN LISPRO (NovoLOG) PER UNIT SC SCH ×4 (08:21→21:00)
[2022-09-07] MEDS: cloNIDine 0.1MG TABLET PO SCH ×3 (08:21→21:36)
[2022-09-07] MEDS: DOCUSATE SODIUM 100MG CAPSULE PO SCH (08:22)
[2022-09-07] MEDS: clonazePAM 1 MG TAB PO SCH ×2 (08:22→21:34)
[2022-09-07] MEDS: **hydrALAZINE** 50 MG TAB PO SCH ×4 (08:22→21:36)
[2022-09-07] MEDS: BACITRACIN OINTMENT 30GM TUBE TOP SCH (08:23)
[2022-09-07] MEDS: ENOXAPARIN 40MG/0.4ML SYRINGE (J1650 PER 10MG) SC SCH (08:23)
[2022-09-07] MEDS: ATORVASTATIN 20 MG TAB PO SCH (21:35)
[2022-09-08 05:38] VITALS: BP 146/63
[2022-09-08] MEDS: ISOSORBIDE DIN. (ISORDIL) 20 MG TAB PO SCH ×3 (06:33→22:12)
[2022-09-08] MEDS: INSULIN LISPRO (NovoLOG) PER UNIT SC SCH ×4 (08:21→21:00)
[2022-09-08] MEDS: ENOXAPARIN 40MG/0.4ML SYRINGE (J1650 PER 10MG) SC SCH (08:22)
[2022-09-08] MEDS: BACITRACIN OINTMENT 30GM TUBE TOP SCH (08:22)
[2022-09-08] MEDS: **hydrALAZINE** 50 MG TAB PO SCH ×4 (08:22→22:11)
[2022-09-08] MEDS: DOCUSATE SODIUM 100MG CAPSULE PO SCH (08:23)
[2022-09-08] MEDS: clonazePAM 1 MG TAB PO SCH ×2 (08:24→22:11)
[2022-09-08] MEDS: cloNIDine 0.1MG TABLET PO SCH ×3 (08:24→22:12)
[2022-09-08] MEDS: ATORVASTATIN 20 MG TAB PO SCH (22:11)
[2022-09-09 06:00] VITALS: BP 105/58
[2022-09-09] MEDS: ISOSORBIDE DIN. (ISORDIL) 20 MG TAB PO SCH ×3 (06:50→23:35)
[2022-09-09] MEDS: clonazePAM 1 MG TAB PO SCH ×2 (08:12→20:50)
[2022-09-09] MEDS: cloNIDine 0.1MG TABLET PO SCH ×3 (08:14→20:50)
[2022-09-09] MEDS: ENOXAPARIN 40MG/0.4ML SYRINGE (J1650 PER 10MG) SC SCH (08:15)
[2022-09-09] MEDS: **hydrALAZINE** 50 MG TAB PO SCH ×4 (08:15→20:50)
[2022-09-09] MEDS: DOCUSATE SODIUM 100MG CAPSULE PO SCH (08:15)
[2022-09-09] MEDS: BACITRACIN OINTMENT 30GM TUBE TOP SCH (08:16)
[2022-09-09] MEDS: INSULIN LISPRO (NovoLOG) PER UNIT SC SCH ×4 (08:16→20:50)
[2022-09-09] MEDS: ATORVASTATIN 20 MG TAB PO SCH (20:50)
[2022-09-10 04:42] VITALS: BP 131/59
[2022-09-10] MEDS: ISOSORBIDE DIN. (ISORDIL) 20 MG TAB PO SCH ×2 (06:34→12:39)
[2022-09-10] MEDS: DOCUSATE SODIUM 100MG CAPSULE PO SCH (09:27)
[2022-09-10] MEDS: cloNIDine 0.1MG TABLET PO SCH (09:29)
[2022-09-10] MEDS: clonazePAM 1 MG TAB PO SCH (09:29)
[2022-09-10] MEDS: INSULIN LISPRO (NovoLOG) PER UNIT SC SCH ×2 (09:31→12:39)
[2022-09-10] MEDS: **hydrALAZINE** 50 MG TAB PO SCH ×2 (09:31→12:39)
[2022-09-10] MEDS: BACITRACIN OINTMENT 30GM TUBE TOP SCH (09:32)
[2022-09-10] MEDS: ENOXAPARIN 40MG/0.4ML SYRINGE (J1650 PER 10MG) SC SCH (09:32)
[2022-09-10 12:39] VITALS: BP 140/82
== END 2022-09-10 13:40 | DRG 948 ==
LOC: M ED 17:50 → M ED INP 21:18 → ENRESERV 09-02 14:09 → M MS5PR 09-02 16:20
PROVIDERS: ADMIT Family Medicine; ATTEND General Practice
DX: R53.1 Weakness (principal); I95.1 Orthostatic hypotension; I10 Essential (primary) hypertension; E11.51 Type 2 diabetes mellitus with diabetic peripheral angiopathy without gangrene; I25.10 Atherosclerotic heart disease of native coronary artery without angina pectoris; R19.7 Diarrhea, unspecified; N40.0 Benign prostatic hyperplasia without lower urinary tract symptoms; E78.5 Hyperlipidemia, unspecified; F41.9 Anxiety disorder, unspecified; Z85.118 Personal history of other malignant neoplasm of bronchus and lung; Z79.899 Other long term (current) drug therapy; Z88.0 Allergy status to penicillin; Z88.8 Allergy status to other drugs, medicaments and biological substances; F32.A Depression, unspecified; Z88.2 Allergy status to sulfonamides

== ENCOUNTER → 2022-10-07 | Outpatient (REF) | payer MEDICARE, MEDICAID ==
[~2022-10-07] MED LIST changes: +ANOR1AER; +ELIQ5TAB PO; +HYDR-3911 PO
[2022-10-07 15:05] LABS: APPEARANCE, URINE CLOUDY (CLEAR); BILIRUBIN, URINE AUTO NEGATIVE (NEGATIVE); BLOOD, URINE BLOOD 1+ (NEGATIVE); COLOR, URINE YELLOW (YELLOW); GLUCOSE, URINE (UA) AUTO 3+ mg/dL (NEGATIVE); KETONE, URINE AUTO NEGATIVE (NEGATIVE); LEUKOCYTE ESTERASE, URINE AUTO 3+ (NEGATIVE); NITRITE, URINE AUTO NEGATIVE (NEGATIVE); PROTEIN, URINE AUTO 2+ mg/dL (NEGATIVE); SPECIFIC GRAVITY URINE AUTO 1.011 (1.002-1.035); UROBILINOGEN, URINE AUTO 0.2 mg/dL (0.0-2.0)
[2022-10-07 15:09] LABS: BACTERIA, URINE AUTO 3+ (NEGATIVE); RBC, URINE AUTO 5 /HPF (0-3); SQUAMOUS EPITHELIAL CELL UR AU 0 /HPF (0-6); WBC, URINE AUTO TNTC /HPF (0-3)
== END ==
LOC: SKLAB5 14:47
PROVIDERS: ATTEND Internal Medicine
DX: R82.90 Unspecified abnormal findings in urine (principal)

== ENCOUNTER 2022-10-11 01:49 | Emergency (ER) | payer MEDICARE, MEDICAID ==
[~2022-10-11] VITALS: Ht 180.3 cm; Wt 70.5 kg
[~2022-10-11 01:49] MED LIST changes: -ELIQ5TAB PO
[2022-10-11 02:32] LABS: BASO % 0.2 % (0.0-1.0); EOS # 0.1 10^3/uL (0.0-0.5); EOS % 1.4 % (0.0-3.0); HEMATOCRIT 38.9 % (42.0-52.0); LYMPH # 0.7 10^3/uL (1.5-5.0); LYMPH % 11.6 % (24.0-44.0); MEAN CORPUSCULAR HGB CONC 33.4 g/dl (32.0-36.5); MEAN CORPUSCULAR VOLUME 89.6 fl (80.0-96.0); MONO # 0.6 10^3/uL (0.0-0.8); MONO % 8.9 % (2.0-8.0); NEUTROPHILS # 4.9 10^3/uL (1.5-8.5); NEUTROPHILS % 77.6 % (36.0-66.0); PLATELET COUNT, AUTOMATED 181 10^3/uL (150-450); RED BLOOD COUNT 4.34 10^6/uL (4.30-6.10); WHITE BLOOD COUNT 6.3 10^3/uL (4.0-10.0)
[2022-10-11 02:44] LABS: INR 1.04; PROTHROMBIN TIME 13.8 SECONDS (12.5-14.5)
[2022-10-11 02:45] LABS: PARTIAL THROMBOPLASTIN TIME 31.3 SECONDS (24.8-34.2)
[2022-10-11 02:54] LABS: CPK CREATINE PHOSPHOKINASE 27 U/L (46-171)
[2022-10-11 03:30] LABS: ALBUMIN 2.9 G/DL (3.2-5.2); ALKALINE PHOSPHATASE 113 U/L (46-116); ALT/SGPT 38 U/L (7.0-40); AST/SGOT 18 U/L (<34); BILIRUBIN,TOTAL 0.8 MG/DL (0.3-1.2); BLOOD UREA NITROGEN 33 MG/DL (9-23); CALCIUM LEVEL 9.1 MG/DL (8.3-10.6); CARBON DIOXIDE LEVEL 22 MMOL/L (20-31); CHLORIDE LEVEL 100 MMOL/L (98-107); CK-MB VALUE MASS 1.3 NG/ML (<3.6); CREATININE FOR GFR 1.04 MG/DL (0.70-1.30); GLOMERULAR FILTRATION RATE > 60.0 (>42); GLUCOSE, FASTING 284 MG/DL (74-106); MAGNESIUM LEVEL 1.9 MG/DL (1.8-2.4); MB/CK RELATIVE INDEX 4.81 (< OR =4); POTASSIUM SERUM 3.3 MMOL/L (3.5-5.1); SODIUM LEVEL 132 MMOL/L (136-145); TOTAL PROTEIN 6.9 G/DL (5.7-8.2)
[2022-10-11] MEDS ORDERED: CALCIUM CARBONATE 500 MG CHEW U/D PO ONE (03:40)
[2022-10-11 04:17] LABS: CK-MB VALUE MASS 1.3 NG/ML (<3.6)
[2022-10-11 04:19] LABS: MB/CK RELATIVE INDEX 4.48 (< OR =4)
[2022-10-11] MEDS ORDERED: ELIQ5TAB PO (04:29)
[2022-10-11] MEDS ORDERED: APIXABAN 5 MG TAB (ELIQUIS) PO ONE (04:30)
[2022-10-11] MEDS ORDERED: ENOXAPARIN 80MG/0.8ML SYRINGE (J1650 PER 10MG) SC ONE (04:35)
[2022-10-11 05:02] VITALS: BP 163/81
== END 2022-10-11 05:25 | disposition home or self-care (01) ==
LOC: M ED 01:49 → EDBD 01:49 → M ED 05:25
DX: I82.402 Acute embolism and thrombosis of unspecified deep veins of left lower extremity (principal); E11.9 Type 2 diabetes mellitus without complications; I10 Essential (primary) hypertension; J44.9 Chronic obstructive pulmonary disease, unspecified; F41.9 Anxiety disorder, unspecified; E78.5 Hyperlipidemia, unspecified; Z79.4 Long term (current) use of insulin; Z88.0 Allergy status to penicillin; Z88.1 Allergy status to other antibiotic agents; Z88.2 Allergy status to sulfonamides; Z79.52 Long term (current) use of systemic steroids; Z79.02 Long term (current) use of antithrombotics/antiplatelets; Z79.899 Other long term (current) drug therapy
CPT/HCPCS: 36415; 80053; 82550; 82553; 83605; 83735; 84484; 85025; 85610; 85730; 93005; 93971; 99284; J1650

== ENCOUNTER → 2022-11-12 | Outpatient (REF) | payer MEDICARE, MEDICAID ==
[~2022-11-12] MED LIST changes: +ELIQ5TAB PO; +INSU100I6 SQ; -LEVE1INJ5 SQ
[2022-11-12 08:29] LABS: BLOOD UREA NITROGEN 29 MG/DL (9-23); CALCIUM LEVEL 8.6 MG/DL (8.3-10.6); CARBON DIOXIDE LEVEL 27 MMOL/L (20-31); CHLORIDE LEVEL 103 MMOL/L (98-107); CREATININE FOR GFR 1.13 MG/DL (0.70-1.30); GLOMERULAR FILTRATION RATE > 60.0 (>42); GLUCOSE, FASTING 233 MG/DL (74-106); POTASSIUM SERUM 3.8 MMOL/L (3.5-5.1); SODIUM LEVEL 135 MMOL/L (136-145)
== END ==
LOC: SKLAB5 09:28
PROVIDERS: ATTEND Internal Medicine
DX: E87.6 Hypokalemia (principal)

== ENCOUNTER → 2022-11-22 | Outpatient (REF) | payer MEDICARE, MEDICAID ==
[~2022-11-22] MED LIST changes: +FLUT50SP17 INH; -FLUTISP INH
[2022-11-22 08:17] LABS: APPEARANCE, URINE CLOUDY (CLEAR); BACTERIA, URINE AUTO 2+ (NEGATIVE); BILIRUBIN, URINE AUTO NEGATIVE (NEGATIVE); BLOOD, URINE BLOOD 1+ (NEGATIVE); COLOR, URINE YELLOW (YELLOW); GLUCOSE, URINE (UA) AUTO 3+ mg/dL (NEGATIVE); KETONE, URINE AUTO NEGATIVE (NEGATIVE); LEUKOCYTE ESTERASE, URINE AUTO 3+ (NEGATIVE); NITRITE, URINE AUTO POSITIVE (NEGATIVE); PROTEIN, URINE AUTO 1+ mg/dL (NEGATIVE); RBC, URINE AUTO 5 /HPF (0-3); SPECIFIC GRAVITY URINE AUTO 1.013 (1.002-1.035); SQUAMOUS EPITHELIAL CELL UR AU 0 /HPF (0-6); UROBILINOGEN, URINE AUTO 0.2 mg/dL (0.0-2.0); WBC, URINE AUTO TNTC /HPF (0-3)
== END ==
LOC: SKLAB7
PROVIDERS: ATTEND Internal Medicine
DX: R36.9 Urethral discharge, unspecified (principal)

== ENCOUNTER → 2022-12-10 | Outpatient (CLI) | payer MEDICARE, MEDICAID | LOC: M RAD 13:49 | PROVIDERS: ATTEND Surgery Vascular Surgery | DX: I70.213 Atherosclerosis of native arteries of extremities with intermittent claudication, bilateral legs (principal) ==

== ENCOUNTER → 2022-12-27 | Outpatient (REF) | payer MEDICARE, MEDICAID ==
[2022-12-20 14:40] LABS: HEMOGLOBIN 10.8 g/dl (13.5-17.5); MEAN CORPUSCULAR HEMOGLOBIN 30.6 pg (27.0-33.0); MEAN CORPUSCULAR HGB CONC 32.7 g/dl (32.0-36.5); MEAN CORPUSCULAR VOLUME 93.5 fl (80.0-96.0); PLATELET COUNT, AUTOMATED 172 10^3/uL (150-450); RED BLOOD COUNT 3.53 10^6/uL (4.30-6.10); WHITE BLOOD COUNT 4.4 10^3/uL (4.0-10.0)
[2022-12-20 15:04] LABS: BLOOD UREA NITROGEN 31 MG/DL (9-23); CALCIUM LEVEL 8.3 MG/DL (8.3-10.6); CARBON DIOXIDE LEVEL 27 MMOL/L (20-31); CHLORIDE LEVEL 102 MMOL/L (98-107); CREATININE FOR GFR 1.15 MG/DL (0.70-1.30); GLOMERULAR FILTRATION RATE > 60.0 (>42); GLUCOSE, FASTING 333 MG/DL (74-106); POTASSIUM SERUM 4.1 MMOL/L (3.5-5.1); SODIUM LEVEL 134 MMOL/L (136-145)
[~2022-12-27] MED LIST changes: -COZA50TA PO; +LOSA-528 PO
== END ==
LOC: SKLAB5 14:28
PROVIDERS: ATTEND Internal Medicine
DX: R19.7 Diarrhea, unspecified (principal)

== ENCOUNTER 2023-01-12 13:09 | Inpatient (IN) | payer MEDICARE, MEDICAID ==
[~2023-01-12] VITALS: Ht 180.3 cm; Wt 70.5 kg
[2023-01-12] MEDS ORDERED: ACETAMINOPHEN TAB 650MG DOSE (2X325MG) PO ONE (13:30)
[2023-01-12 13:53] LABS: BASO % 0.1 % (0.0-1.0); HEMATOCRIT 38.2 % (42.0-52.0); HEMOGLOBIN 12.9 g/dl (13.5-17.5); LYMPH # 0.5 10^3/uL (1.5-5.0); LYMPH % 3.9 % (24.0-44.0); MEAN CORPUSCULAR HEMOGLOBIN 30.6 pg (27.0-33.0); MEAN CORPUSCULAR HGB CONC 33.8 g/dl (32.0-36.5); MEAN CORPUSCULAR VOLUME 90.5 fl (80.0-96.0); MONO # 0.4 10^3/uL (0.0-0.8); MONO % 3.2 % (2.0-8.0); NEUTROPHILS # 11.3 10^3/uL (1.5-8.5); NEUTROPHILS % 92.3 % (36.0-66.0); PLATELET COUNT, AUTOMATED 214 10^3/uL (150-450); RED BLOOD COUNT 4.22 10^6/uL (4.30-6.10); WHITE BLOOD COUNT 12.3 10^3/uL (4.0-10.0)
[2023-01-12] MEDS: GASTROGRAFIN SOLUTION 30ML PO SCH ×2 (13:57→14:18)
[2023-01-12 14:13] LABS: LIPASE 37 U/L (12-53)
[2023-01-12 14:15] LABS: ALKALINE PHOSPHATASE 114 U/L (46-116); ALT/SGPT 18 U/L (7.0-40); AST/SGOT 15 U/L (<34); BILIRUBIN,DIRECT 0.3 MG/DL (<0.4); BILIRUBIN,TOTAL 0.7 MG/DL (0.3-1.2); BLOOD UREA NITROGEN 28 MG/DL (9-23); CALCIUM LEVEL 8.3 MG/DL (8.3-10.6); CARBON DIOXIDE LEVEL 26 MMOL/L (20-31); CHLORIDE LEVEL 102 MMOL/L (98-107); CREATININE FOR GFR 1.24 MG/DL (0.70-1.30); GLOMERULAR FILTRATION RATE > 60.0 (>42); GLUCOSE, FASTING 254 MG/DL (74-106); POTASSIUM SERUM 3.9 MMOL/L (3.5-5.1); SODIUM LEVEL 136 MMOL/L (136-145); TOTAL PROTEIN 6.7 G/DL (5.7-8.2)
[2023-01-12] MEDS ORDERED: LevoFLOXacin IV 750 MG in IV 1 EA IV ONE (15:15)
[2023-01-12] MEDS ORDERED: ISOVUE-370 76% 100ML VIAL As Ordered ONE (15:17)
[2023-01-12] MEDS ORDERED: BOOSTRIX VACCINE (TETANUS/DIPHTH/ACEL. PERTUSSIS) 0.5ML SYR IM.IMMUN ONE (17:40)
[2023-01-12 20:45] LABS: RSV AMPLIFICATION NEGATIVE (NEGATIVE)
[2023-01-12] MEDS ORDERED: ACETAMINOPHEN TAB 650MG DOSE (2X325MG) PO PRN (22:05)
[2023-01-12] MEDS ORDERED: MORPHINE 2 MG/ML 1ML VIAL IV PRN (22:05)
[2023-01-12] MEDS ORDERED: GLUCAGON INJ 1MG VIAL SC PRN (22:15)
[2023-01-12] MEDS ORDERED: GLUCOSE 4GM CHEW TABLET PO PRN (22:15)
[2023-01-12] MEDS ORDERED: DEXTROSE 50% 50ML SYRINGE IV PRN (22:15)
[2023-01-12] MEDS ORDERED: ELIQ5TAB PO (22:48)
[2023-01-12] MEDS ORDERED: CLON1TAB8 PO (22:48)
[2023-01-12] MEDS ORDERED: ANOR1AER INH (22:48)
[2023-01-12] MEDS ORDERED: ACET65SU PR (22:48)
[2023-01-12] MEDS ORDERED: CLON-412 PO (22:48)
[2023-01-12] MEDS ORDERED: FLOM0.4C39 PO (22:48)
[2023-01-12] MEDS ORDERED: AMLO1TAB25 PO (22:48)
[2023-01-12] MEDS ORDERED: POTA1TAB24 PO (22:48)
[2023-01-12] MEDS ORDERED: MILKSUS3 PO (22:56)
[2023-01-12] MEDS ORDERED: CARB15DR33 OU (22:56)
[2023-01-12] MEDS ORDERED: DOCU100C16 PO (22:56)
[2023-01-12] MEDS ORDERED: DULC10SU2 PR (22:56)
[2023-01-12] MEDS ORDERED: FLEEENE12 PR (22:56)
[2023-01-12] MEDS ORDERED: ACET-907 PO (22:56)
[2023-01-12 22:58] VITALS: BP 182/76
[2023-01-12] MEDS ORDERED: HOME MED LIST COMPLETE! XX SCH (23:05)
[2023-01-13] VITALS (9 sets, daily range): BP systolic 128–176; BP diastolic 44–78
[2023-01-13] MEDS ORDERED: BISACODYL 10MG SUPP PR PRN (00:10)
[2023-01-13] MEDS ORDERED: MOM 30ML SUSPENSION UDC PO PRN (00:10)
[2023-01-13] MEDS ORDERED: DOCUSATE SODIUM 100MG CAPSULE PO PRN (00:10)
[2023-01-13] MEDS: ISOSORBIDE DIN. (ISORDIL) 20 MG TAB PO SCH ×3 (00:56→16:29)
[2023-01-13] MEDS: cloNIDine 0.1MG TABLET PO SCH ×4 (00:56→17:34)
[2023-01-13] MEDS: INSULIN LISPRO (NovoLOG) PER UNIT SC SCH ×5 (01:29→20:41)
[2023-01-13 06:34] LABS: BLOOD UREA NITROGEN 22 MG/DL (9-23); CALCIUM LEVEL 8.5 MG/DL (8.3-10.6); CARBON DIOXIDE LEVEL 26 MMOL/L (20-31); CHLORIDE LEVEL 103 MMOL/L (98-107); CREATININE FOR GFR 1.22 MG/DL (0.70-1.30); GLOMERULAR FILTRATION RATE > 60.0 (>42); GLUCOSE, FASTING 166 MG/DL (74-106); MAGNESIUM LEVEL 1.8 MG/DL (1.8-2.4); POTASSIUM SERUM 3.8 MMOL/L (3.5-5.1); SODIUM LEVEL 136 MMOL/L (136-145)
[2023-01-13 07:51] LABS: BASO % 0.1 % (0.0-1.0); EOS % 0.4 % (0.0-3.0); HEMATOCRIT 35.9 % (42.0-52.0); HEMOGLOBIN 11.8 g/dl (13.5-17.5); LYMPH # 0.7 10^3/uL (1.5-5.0); LYMPH % 9.9 % (24.0-44.0); MEAN CORPUSCULAR HEMOGLOBIN 30.6 pg (27.0-33.0); MEAN CORPUSCULAR HGB CONC 32.9 g/dl (32.0-36.5); MONO # 0.4 10^3/uL (0.0-0.8); MONO % 5.1 % (2.0-8.0); NEUTROPHILS # 6.1 10^3/uL (1.5-8.5); NEUTROPHILS % 84.1 % (36.0-66.0); PLATELET COUNT, AUTOMATED 185 10^3/uL (150-450); RED BLOOD COUNT 3.86 10^6/uL (4.30-6.10); WHITE BLOOD COUNT 7.2 10^3/uL (4.0-10.0)
[2023-01-13] MEDS ORDERED: TAMSULOSIN 0.4 MG CAP PO SCH (09:00)
[2023-01-13] MEDS: cefTRIAXone SOD 1 GM in D5W MINI-BAG PLUS 50 ML IV SCH (09:37)
[2023-01-13] MEDS: APIXABAN 5 MG TAB (ELIQUIS) PO SCH ×2 (09:38→20:38)
[2023-01-13] MEDS: **hydrALAZINE** 50 MG TAB PO SCH ×4 (09:38→20:39)
[2023-01-13] MEDS: clonazePAM 1 MG TAB PO SCH ×2 (09:39→20:39)
[2023-01-13] MEDS: metroNIDAZOLE 500 MG in IV 1 EA IV SCH ×2 (10:36→17:33)
[2023-01-13] MEDS ORDERED: LevoFLOXacin IV 750 MG in IV 1 EA IV ONE (16:00)
[2023-01-13] MEDS ORDERED: ATORVASTATIN 20 MG TAB PO SCH (21:00)
[2023-01-13] MEDS ORDERED: FINASTERIDE 5MG TAB PO SCH (21:00)
[2023-01-14 00:09] VITALS: BP 135/64
[2023-01-14] MEDS: cloNIDine 0.1MG TABLET PO SCH ×3 (00:13→12:16)
[2023-01-14] MEDS: ISOSORBIDE DIN. (ISORDIL) 20 MG TAB PO SCH ×2 (00:13→07:55)
[2023-01-14] MEDS: metroNIDAZOLE 500 MG in IV 1 EA IV SCH ×2 (00:14→09:01)
[2023-01-14] MEDS: NYSTATIN 100,000 UNITS/GM TOPICAL PWD 15GM TOP SCH ×2 (00:59→09:01)
[2023-01-14 05:21] VITALS: BP 131/61
[2023-01-14 06:15] LABS: BASO % 0.2 % (0.0-1.0); EOS # 0.1 10^3/uL (0.0-0.5); HEMATOCRIT 31.8 % (42.0-52.0); HEMOGLOBIN 10.2 g/dl (13.5-17.5); LYMPH # 0.8 10^3/uL (1.5-5.0); LYMPH % 15.7 % (24.0-44.0); MEAN CORPUSCULAR HGB CONC 32.1 g/dl (32.0-36.5); MEAN CORPUSCULAR VOLUME 93.5 fl (80.0-96.0); MONO # 0.4 10^3/uL (0.0-0.8); MONO % 8.2 % (2.0-8.0); NEUTROPHILS # 3.7 10^3/uL (1.5-8.5); NEUTROPHILS % 73.7 % (36.0-66.0); PLATELET COUNT, AUTOMATED 175 10^3/uL (150-450)
[2023-01-14 06:44] LABS: ALBUMIN 2.4 G/DL (3.2-5.2); BILIRUBIN,TOTAL 0.4 MG/DL (0.3-1.2); CALCIUM LEVEL 8.3 MG/DL (8.3-10.6); CREATININE FOR GFR 1.28 MG/DL (0.70-1.30); GLOMERULAR FILTRATION RATE 59.1 (>42); MAGNESIUM LEVEL 1.8 MG/DL (1.8-2.4); POTASSIUM SERUM 3.5 MMOL/L (3.5-5.1); TOTAL PROTEIN 5.4 G/DL (5.7-8.2)
[2023-01-14 07:23] LABS: C REACTIVE PROTEIN QUANTITATIV 7.8 MG/DL (<1.0)
[2023-01-14 07:44] VITALS: BP 121/60
[2023-01-14] MEDS: INSULIN LISPRO (NovoLOG) PER UNIT SC SCH ×2 (07:53→12:17)
[2023-01-14] MEDS: cefTRIAXone SOD 1 GM in D5W MINI-BAG PLUS 50 ML IV SCH (07:55)
[2023-01-14 08:59] VITALS: BP 124/56
[2023-01-14] MEDS: **hydrALAZINE** 50 MG TAB PO SCH (09:00)
[2023-01-14] MEDS: APIXABAN 5 MG TAB (ELIQUIS) PO SCH (09:00)
[2023-01-14] MEDS ORDERED: TAMSULOSIN 0.4 MG CAP PO SCH (09:00)
[2023-01-14] MEDS: clonazePAM 1 MG TAB PO SCH (09:01)
[2023-01-14] MEDS ORDERED: FLOM0.4C39 PO (09:33)
[2023-01-14] MEDS ORDERED: FINA5TAB2 PO (09:33)
[2023-01-14] MEDS ORDERED: VANC1CAP6 PO (09:33)
[2023-01-14] MEDS ORDERED: METR-265 PO (09:33)
[2023-01-14] MEDS ORDERED: CEFD300C41 PO (09:33)
[2023-01-14 12:00] VITALS: BP 150/62
[2023-01-14 12:16] VITALS: BP 150/62
== END 2023-01-14 12:30 | DRG 872 ==
LOC: M ED 13:09 → M ED INP 22:03 → M PCU 22:53
PROVIDERS: ADMIT Family Medicine; ATTEND Family Medicine
DX: A41.9 Sepsis, unspecified organism (principal); N12 Tubulo-interstitial nephritis, not specified as acute or chronic; A04.9 Bacterial intestinal infection, unspecified; I10 Essential (primary) hypertension; E11.51 Type 2 diabetes mellitus with diabetic peripheral angiopathy without gangrene; F32.A Depression, unspecified; J44.9 Chronic obstructive pulmonary disease, unspecified; I25.10 Atherosclerotic heart disease of native coronary artery without angina pectoris; E78.5 Hyperlipidemia, unspecified; E78.00 Pure hypercholesterolemia, unspecified; K52.9 Noninfective gastroenteritis and colitis, unspecified; F41.9 Anxiety disorder, unspecified; Z85.118 Personal history of other malignant neoplasm of bronchus and lung; Z95.2 Presence of prosthetic heart valve; Z88.2 Allergy status to sulfonamides; Z88.8 Allergy status to other drugs, medicaments and biological substances; Z88.0 Allergy status to penicillin; Z79.899 Other long term (current) drug therapy; N40.0 Benign prostatic hyperplasia without lower urinary tract symptoms; R33.9 Retention of urine, unspecified

== ENCOUNTER 2023-02-01 19:05 | Inpatient (IN) | payer MEDICARE, MEDICAID ==
[~2023-02-01] VITALS: Ht 180.3 cm; Wt 86.4 kg
[~2023-02-01 19:05] MED LIST changes: +ACET-907 PO; +ACET65SU PR; +ANOR1AER INH; +CARB15DR33 OU; +CEFD300C41 PO; +CLON-412 PO; +DOCU100C16 PO; +DULC10SU2 PR; +FINA5TAB2 PO; +FLEEENE12 PR; +FLOM0.4C39 PO; +METR-265 PO; +MILKSUS3 PO; +POTA1TAB24 PO; +SENN-111 PO; -SENN18TA PO; +VANC1CAP6 PO
[2023-02-01] MEDS ORDERED: ACETAMINOPHEN TAB 650MG DOSE (2X325MG) PO ONE (20:20)
[2023-02-01] MEDS ORDERED: IBUPROFEN 800 MG TAB PO ONE (20:20)
[2023-02-01] MEDS ORDERED: cefTRIAXone SOD 2 GM in D5W MINI-BAG PLUS 50 ML IV ONE (20:30)
[2023-02-01] MEDS ORDERED: NS 1,000 ML IV ONE (20:30)
[2023-02-01 20:48] LABS: BASO % 0.2 % (0.0-1.0); HEMATOCRIT 34.3 % (42.0-52.0); HEMOGLOBIN 11.4 g/dl (13.5-17.5); LYMPH # 0.2 10^3/uL (1.5-5.0); LYMPH % 3.7 % (24.0-44.0); MEAN CORPUSCULAR HEMOGLOBIN 29.7 pg (27.0-33.0); MEAN CORPUSCULAR HGB CONC 33.2 g/dl (32.0-36.5); MEAN CORPUSCULAR VOLUME 89.3 fl (80.0-96.0); MONO # 0.3 10^3/uL (0.0-0.8); MONO % 5.8 % (2.0-8.0); NEUTROPHILS # 4.8 10^3/uL (1.5-8.5); NEUTROPHILS % 89.9 % (36.0-66.0); PLATELET COUNT, AUTOMATED 209 10^3/uL (150-450); RED BLOOD COUNT 3.84 10^6/uL (4.30-6.10); WHITE BLOOD COUNT 5.4 10^3/uL (4.0-10.0)
[2023-02-01] MEDS ORDERED: ISOVUE-370 76% 100ML VIAL As Ordered ONE (22:35)
[2023-02-01 22:39] LABS: ALBUMIN 2.7 G/DL (3.2-5.2); BILIRUBIN,DIRECT 0.4 MG/DL (<0.4); BILIRUBIN,TOTAL 0.9 MG/DL (0.3-1.2); CALCIUM LEVEL 8.4 MG/DL (8.3-10.6); CREATININE FOR GFR 1.56 MG/DL (0.70-1.30); GLOMERULAR FILTRATION RATE 47.1 (>42); POTASSIUM SERUM 4.3 MMOL/L (3.5-5.1); TOTAL PROTEIN 6.9 G/DL (5.7-8.2)
[2023-02-02] MEDS ORDERED: FLOM0.4C39 PO (00:32)
[2023-02-02] MEDS ORDERED: FINA5TAB2 PO (00:32)
[2023-02-02] MEDS ORDERED: VALS1TAB66 PO (00:32)
[2023-02-02] MEDS ORDERED: SPIR-10 PO (00:32)
[2023-02-02] MEDS ORDERED: HOME MED LIST COMPLETE! XX SCH (00:35)
[2023-02-02] MEDS ORDERED: ACETAMINOPHEN TAB 650MG DOSE (2X325MG) PO PRN (02:20)
[2023-02-02] MEDS ORDERED: NS 1,000 ML IV SCH (02:40)
[2023-02-02] MEDS ORDERED: BISACODYL 10MG SUPP PR PRN (03:55)
[2023-02-02] MEDS ORDERED: DEXTROSE 50% 50ML SYRINGE IV PRN (04:00)
[2023-02-02] MEDS ORDERED: GLUCAGON INJ 1MG VIAL SC PRN (04:00)
[2023-02-02] MEDS ORDERED: DOCUSATE SODIUM 100MG CAPSULE PO SCH ×2 (04:00→09:00)
[2023-02-02] MEDS ORDERED: GLUCOSE 4GM CHEW TABLET PO PRN (04:00)
[2023-02-02] MEDS: FINASTERIDE 5MG TAB PO SCH ×2 (04:21→20:36)
[2023-02-02 04:25] LABS: BASO % 0.3 % (0.0-1.0); EOS % 0.6 % (0.0-3.0); HEMATOCRIT 33.4 % (42.0-52.0); HEMOGLOBIN 10.8 g/dl (13.5-17.5); LYMPH # 0.4 10^3/uL (1.5-5.0); LYMPH % 12.2 % (24.0-44.0); MEAN CORPUSCULAR HEMOGLOBIN 29.8 pg (27.0-33.0); MEAN CORPUSCULAR HGB CONC 32.3 g/dl (32.0-36.5); MEAN CORPUSCULAR VOLUME 92.3 fl (80.0-96.0); MONO # 0.4 10^3/uL (0.0-0.8); MONO % 10.5 % (2.0-8.0); NEUTROPHILS # 2.8 10^3/uL (1.5-8.5); NEUTROPHILS % 76.1 % (36.0-66.0); PLATELET COUNT, AUTOMATED 180 10^3/uL (150-450); RED BLOOD COUNT 3.62 10^6/uL (4.30-6.10); WHITE BLOOD COUNT 3.6 10^3/uL (4.0-10.0)
[2023-02-02 05:01] LABS: CALCIUM LEVEL 7.6 MG/DL (8.3-10.6); CREATININE FOR GFR 1.54 MG/DL (0.70-1.30); GLOMERULAR FILTRATION RATE 47.8 (>42); POTASSIUM SERUM 4.4 MMOL/L (3.5-5.1)
[2023-02-02] MEDS: cloNIDine 0.1MG TABLET PO SCH ×3 (06:05→18:15)
[2023-02-02] MEDS: INSULIN LISPRO (NovoLOG) PER UNIT SC SCH ×3 (06:05→18:15)
[2023-02-02] MEDS: **hydrALAZINE** 50 MG TAB PO SCH ×3 (06:05→22:00)
[2023-02-02] MEDS: ISOSORBIDE DIN. (ISORDIL) 20 MG TAB PO SCH ×3 (06:32→22:00)
[2023-02-02 08:04] LABS: CALCIUM LEVEL 7.7 MG/DL (8.3-10.6); CREATININE FOR GFR 1.34 MG/DL (0.70-1.30); GLOMERULAR FILTRATION RATE 56.1 (>42); POTASSIUM SERUM 3.7 MMOL/L (3.5-5.1)
[2023-02-02] MEDS: APIXABAN 5 MG TAB (ELIQUIS) PO SCH ×2 (08:53→20:37)
[2023-02-02] MEDS: clonazePAM 1 MG TAB PO SCH ×2 (08:54→20:36)
[2023-02-02] MEDS: TAMSULOSIN 0.4 MG CAP PO SCH (08:54)
[2023-02-02 11:57] LABS: BLOOD UREA NITROGEN 25 MG/DL (9-23); CARBON DIOXIDE LEVEL 20 MMOL/L (20-31); CHLORIDE LEVEL 103 MMOL/L (98-107); CREATININE FOR GFR 1.24 MG/DL (0.70-1.30); GLOMERULAR FILTRATION RATE > 60.0 (>42); GLUCOSE, FASTING 248 MG/DL (74-106); POTASSIUM SERUM 3.7 MMOL/L (3.5-5.1); SODIUM LEVEL 133 MMOL/L (136-145)
[2023-02-02 12:40] VITALS: BP 165/61; TEMP 97.7; O2SAT 98
[2023-02-02 14:00] VITALS: BP 144/61; TEMP 98.2; O2SAT 98
[2023-02-02 15:48] LABS: BLOOD UREA NITROGEN 24 MG/DL (9-23); CALCIUM LEVEL 7.7 MG/DL (8.3-10.6); CARBON DIOXIDE LEVEL 21 MMOL/L (20-31); CHLORIDE LEVEL 102 MMOL/L (98-107); CREATININE FOR GFR 1.26 MG/DL (0.70-1.30); GLOMERULAR FILTRATION RATE > 60.0 (>42); GLUCOSE, FASTING 286 MG/DL (74-106); POTASSIUM SERUM 4.1 MMOL/L (3.5-5.1); SODIUM LEVEL 131 MMOL/L (136-145)
[2023-02-02] MEDS: SYMBICORT 160/4.5MCG INHALER 6GM INH SCH (20:15)
[2023-02-02] MEDS: MIRALAX *UNIT DOSE* 17GM PACKET PO SCH (20:35)
[2023-02-02] MEDS: ATORVASTATIN 20 MG TAB PO SCH (20:36)
[2023-02-02] MEDS ORDERED: cefTRIAXone SOD 1 GM in D5W MINI-BAG PLUS 50 ML IV SCH (21:00)
[2023-02-02 21:30] VITALS: BP 103/54; TEMP 97.7; O2SAT 97
[2023-02-03 00:24] VITALS: BP 119/54
[2023-02-03] MEDS: INSULIN LISPRO (NovoLOG) PER UNIT SC SCH ×4 (00:32→16:52)
[2023-02-03 05:20] VITALS: BP 124/57; TEMP 97.5; O2SAT 98
[2023-02-03] MEDS: cloNIDine 0.1MG TABLET PO SCH ×3 (05:44→16:53)
[2023-02-03] MEDS: **hydrALAZINE** 50 MG TAB PO SCH (05:45)
[2023-02-03] MEDS: ISOSORBIDE DIN. (ISORDIL) 20 MG TAB PO SCH ×3 (05:45→21:22)
[2023-02-03 07:36] LABS: EOS # 0.1 10^3/uL (0.0-0.5); EOS % 1.4 % (0.0-3.0); HEMATOCRIT 30.1 % (42.0-52.0); HEMOGLOBIN 9.8 g/dl (13.5-17.5); LYMPH # 0.6 10^3/uL (1.5-5.0); LYMPH % 11.9 % (24.0-44.0); MEAN CORPUSCULAR HEMOGLOBIN 29.2 pg (27.0-33.0); MEAN CORPUSCULAR HGB CONC 32.6 g/dl (32.0-36.5); MEAN CORPUSCULAR VOLUME 89.6 fl (80.0-96.0); MONO # 0.5 10^3/uL (0.0-0.8); MONO % 9.9 % (2.0-8.0); NEUTROPHILS # 3.9 10^3/uL (1.5-8.5); NEUTROPHILS % 76.6 % (36.0-66.0); PLATELET COUNT, AUTOMATED 193 10^3/uL (150-450); RED BLOOD COUNT 3.36 10^6/uL (4.30-6.10); WHITE BLOOD COUNT 5.1 10^3/uL (4.0-10.0)
[2023-02-03] MEDS: TIOTROPIUM INHALER/CAPSULE (SPIRIVA) INH SCH (08:01)
[2023-02-03] MEDS: SYMBICORT 160/4.5MCG INHALER 6GM INH SCH ×2 (08:01→20:19)
[2023-02-03 08:32] LABS: BLOOD UREA NITROGEN 18 MG/DL (9-23); CALCIUM LEVEL 7.5 MG/DL (8.3-10.6); CARBON DIOXIDE LEVEL 22 MMOL/L (20-31); CHLORIDE LEVEL 106 MMOL/L (98-107); CREATININE FOR GFR 1.16 MG/DL (0.70-1.30); GLOMERULAR FILTRATION RATE > 60.0 (>42); GLUCOSE, FASTING 176 MG/DL (74-106); POTASSIUM SERUM 3.5 MMOL/L (3.5-5.1); SODIUM LEVEL 134 MMOL/L (136-145)
[2023-02-03] MEDS ORDERED: DOXYCYCLINE HYCLATE 100 MG in D5W MINI-BAG PLUS 100 ML IV SCH (08:35)
[2023-02-03] MEDS: TAMSULOSIN 0.4 MG CAP PO SCH (09:03)
[2023-02-03] MEDS: clonazePAM 1 MG TAB PO SCH ×2 (09:03→21:22)
[2023-02-03] MEDS: DOXYCYCLINE HYCLATE 100MG TABLET PO SCH ×2 (09:03→21:22)
[2023-02-03] MEDS: MIRALAX *UNIT DOSE* 17GM PACKET PO SCH ×2 (09:03→21:23)
[2023-02-03] MEDS: **hydrALAZINE HCL** 25 MG TAB PO SCH ×2 (13:17→21:22)
[2023-02-03] MEDS ORDERED: DEXTROSE 50% 50ML SYRINGE IV PRN (13:30)
[2023-02-03] MEDS ORDERED: GLUCOSE 4GM CHEW TABLET PO PRN (13:30)
[2023-02-03] MEDS ORDERED: GLUCAGON INJ 1MG VIAL SC PRN (13:30)
[2023-02-03 14:00] VITALS: BP 155/63; TEMP 99; O2SAT 99
[2023-02-03 15:36] LABS: HEMOGLOBIN A1c 9.2 % (4.0-6.0)
[2023-02-03] MEDS: LEVEMIR (INSULIN DETEMIR) 1 UNITS/0.01ML SC SCH (16:52)
[2023-02-03 20:00] VITALS: BP 160/63; TEMP 98.1; O2SAT 99
[2023-02-03] MEDS ORDERED: INSULIN LISPRO (NovoLOG) PER UNIT SC SCH (21:00)
[2023-02-03] MEDS: ATORVASTATIN 20 MG TAB PO SCH (21:23)
[2023-02-03] MEDS: FINASTERIDE 5MG TAB PO SCH (21:23)
[2023-02-04] MEDS: **hydrALAZINE HCL** 25 MG TAB PO SCH (05:31)
[2023-02-04] MEDS: cloNIDine 0.1MG TABLET PO SCH (05:31)
[2023-02-04] MEDS: ISOSORBIDE DIN. (ISORDIL) 20 MG TAB PO SCH (05:31)
[2023-02-04 06:00] VITALS: BP 155/67; TEMP 98.8; O2SAT 98
[2023-02-04 06:26] LABS: BASO % 0.2 % (0.0-1.0); EOS # 0.1 10^3/uL (0.0-0.5); EOS % 0.9 % (0.0-3.0); HEMATOCRIT 30.4 % (42.0-52.0); LYMPH # 0.7 10^3/uL (1.5-5.0); LYMPH % 13.8 % (24.0-44.0); MEAN CORPUSCULAR HEMOGLOBIN 29.3 pg (27.0-33.0); MEAN CORPUSCULAR HGB CONC 32.9 g/dl (32.0-36.5); MEAN CORPUSCULAR VOLUME 89.1 fl (80.0-96.0); MONO # 0.5 10^3/uL (0.0-0.8); MONO % 9.2 % (2.0-8.0); NEUTROPHILS % 75.3 % (36.0-66.0); PLATELET COUNT, AUTOMATED 215 10^3/uL (150-450); RED BLOOD COUNT 3.41 10^6/uL (4.30-6.10); WHITE BLOOD COUNT 5.4 10^3/uL (4.0-10.0)
[2023-02-04 06:49] LABS: BLOOD UREA NITROGEN 11 MG/DL (9-23); CALCIUM LEVEL 7.5 MG/DL (8.3-10.6); CARBON DIOXIDE LEVEL 23 MMOL/L (20-31); CHLORIDE LEVEL 105 MMOL/L (98-107); CREATININE FOR GFR 1.01 MG/DL (0.70-1.30); GLOMERULAR FILTRATION RATE > 60.0 (>42); GLUCOSE, FASTING 218 MG/DL (74-106); POTASSIUM SERUM 3.9 MMOL/L (3.5-5.1); SODIUM LEVEL 134 MMOL/L (136-145)
[2023-02-04] MEDS: TIOTROPIUM INHALER/CAPSULE (SPIRIVA) INH SCH (07:42)
[2023-02-04] MEDS: SYMBICORT 160/4.5MCG INHALER 6GM INH SCH (07:42)
[2023-02-04] MEDS: LEVEMIR (INSULIN DETEMIR) 1 UNITS/0.01ML SC SCH (08:16)
[2023-02-04] MEDS: TAMSULOSIN 0.4 MG CAP PO SCH (08:17)
[2023-02-04] MEDS: INSULIN LISPRO (NovoLOG) PER UNIT SC SCH ×2 (08:17→12:07)
[2023-02-04] MEDS: clonazePAM 1 MG TAB PO SCH (08:17)
[2023-02-04] MEDS: DOXYCYCLINE HYCLATE 100MG TABLET PO SCH (08:18)
[2023-02-04] MEDS: MIRALAX *UNIT DOSE* 17GM PACKET PO SCH (08:18)
[2023-02-04 08:19] VITALS: BP 147/64
[2023-02-04] MEDS ORDERED: DOXY100T PO (12:13)
[2023-02-04] MEDS ORDERED: CLON-412 PO (12:13)
[2023-02-04] MEDS ORDERED: HYDR25TA PO (12:13)
== END 2023-02-04 13:38 | DRG 699 ==
LOC: M ED 19:05 → M ED INP 02-02 02:17 → EEVIPCON 02-02 02:17 → M MSPAV 02-02 12:35
PROVIDERS: ADMIT Family Medicine; ATTEND Internal Medicine Nephrology
DX: T83.511A Infection and inflammatory reaction due to indwelling urethral catheter, initial encounter (principal); N17.9 Acute kidney failure, unspecified; E87.1 Hypo-osmolality and hyponatremia; I77.4 Celiac artery compression syndrome; I12.9 Hypertensive chronic kidney disease with stage 1 through stage 4 chronic kidney disease, or unspecified chronic kidney disease; J44.9 Chronic obstructive pulmonary disease, unspecified; E11.51 Type 2 diabetes mellitus with diabetic peripheral angiopathy without gangrene; K59.00 Constipation, unspecified; I95.1 Orthostatic hypotension; E78.5 Hyperlipidemia, unspecified; I73.9 Peripheral vascular disease, unspecified; F41.9 Anxiety disorder, unspecified; F32.A Depression, unspecified; N39.0 Urinary tract infection, site not specified; E11.22 Type 2 diabetes mellitus with diabetic chronic kidney disease; N18.9 Chronic kidney disease, unspecified; L89.152 Pressure ulcer of sacral region, stage 2; I25.10 Atherosclerotic heart disease of native coronary artery without angina pectoris; Z96.0 Presence of urogenital implants; F03.90 Unspecified dementia, unspecified severity, without behavioral disturbance, psychotic disturbance, mood disturbance, and anxiety; Z98.41 Cataract extraction status, right eye; Z95.5 Presence of coronary angioplasty implant and graft; Z87.891 Personal history of nicotine dependence; Z85.118 Personal history of other malignant neoplasm of bronchus and lung; Z98.42 Cataract extraction status, left eye; Z90.2 Acquired absence of lung [part of]; Z20.822 Contact with and (suspected) exposure to COVID-19; Z79.1 Long term (current) use of non-steroidal anti-inflammatories (NSAID); Z79.899 Other long term (current) drug therapy; Z88.0 Allergy status to penicillin; Z88.1 Allergy status to other antibiotic agents; Z88.2 Allergy status to sulfonamides; Z88.8 Allergy status to other drugs, medicaments and biological substances; R19.7 Diarrhea, unspecified

== ENCOUNTER → 2023-02-02 | Outpatient (REF) | payer MEDICARE, MEDICAID ==
[~2023-02-02] MED LIST changes: -SENN-111 PO; +SENN18TA PO; +SPIR-10 PO; +VALS1TAB66 PO
== END ==
LOC: SKLAB5 10:23
PROVIDERS: ATTEND Internal Medicine
DX: I95.9 Hypotension, unspecified (principal); Z53.8 Procedure and treatment not carried out for other reasons

== ENCOUNTER → 2023-02-09 | Outpatient (REF) ==
[~2023-02-09] MED LIST changes: +DOXY100T PO; +SENN-111 PO; -SENN18TA PO
[2023-02-09 09:37] LABS: HEMATOCRIT 37.9 % (42.0-52.0); HEMOGLOBIN 12.4 g/dl (13.5-17.5); MEAN CORPUSCULAR HEMOGLOBIN 29.5 pg (27.0-33.0); MEAN CORPUSCULAR HGB CONC 32.7 g/dl (32.0-36.5); MEAN CORPUSCULAR VOLUME 90.2 fl (80.0-96.0); PLATELET COUNT, AUTOMATED 351 10^3/uL (150-450)
[2023-02-09 09:57] LABS: BLOOD UREA NITROGEN 26 MG/DL (9-23); CALCIUM LEVEL 9.4 MG/DL (8.3-10.6); CARBON DIOXIDE LEVEL 26 MMOL/L (20-31); CHLORIDE LEVEL 100 MMOL/L (98-107); CREATININE FOR GFR 1.11 MG/DL (0.70-1.30); GLOMERULAR FILTRATION RATE > 60.0 (>42); GLUCOSE, FASTING 160 MG/DL (74-106); POTASSIUM SERUM 4.6 MMOL/L (3.5-5.1); SODIUM LEVEL 133 MMOL/L (136-145)
== END ==
PROVIDERS: ATTEND Internal Medicine
DX: Z79.899 Other long term (current) drug therapy (principal)

== ENCOUNTER → 2023-02-16 | Outpatient (REF) ==
[2023-02-16 08:10] LABS: HEMATOCRIT 37.6 % (42.0-52.0); HEMOGLOBIN 12.2 g/dl (13.5-17.5); MEAN CORPUSCULAR HEMOGLOBIN 29.3 pg (27.0-33.0); MEAN CORPUSCULAR HGB CONC 32.4 g/dl (32.0-36.5); MEAN CORPUSCULAR VOLUME 90.4 fl (80.0-96.0); PLATELET COUNT, AUTOMATED 349 10^3/uL (150-450); RED BLOOD COUNT 4.16 10^6/uL (4.30-6.10); WHITE BLOOD COUNT 6.3 10^3/uL (4.0-10.0)
[2023-02-16 09:12] LABS: BLOOD UREA NITROGEN 28 MG/DL (9-23); CALCIUM LEVEL 9.6 MG/DL (8.3-10.6); CARBON DIOXIDE LEVEL 26 MMOL/L (20-31); CHLORIDE LEVEL 100 MMOL/L (98-107); CREATININE FOR GFR 1.21 MG/DL (0.70-1.30); GLOMERULAR FILTRATION RATE > 60.0 (>42); GLUCOSE, FASTING 143 MG/DL (74-106); POTASSIUM SERUM 4.6 MMOL/L (3.5-5.1); SODIUM LEVEL 133 MMOL/L (136-145)
== END ==
PROVIDERS: ATTEND Internal Medicine
DX: N18.9 Chronic kidney disease, unspecified (principal)

== ENCOUNTER → 2023-02-23 | Outpatient (REF) ==
[2023-02-23 08:41] LABS: HEMATOCRIT 34.2 % (42.0-52.0); HEMOGLOBIN 10.9 g/dl (13.5-17.5); MEAN CORPUSCULAR HEMOGLOBIN 28.8 pg (27.0-33.0); MEAN CORPUSCULAR HGB CONC 31.9 g/dl (32.0-36.5); MEAN CORPUSCULAR VOLUME 90.5 fl (80.0-96.0); PLATELET COUNT, AUTOMATED 276 10^3/uL (150-450); RED BLOOD COUNT 3.78 10^6/uL (4.30-6.10); WHITE BLOOD COUNT 5.7 10^3/uL (4.0-10.0)
[2023-02-23 09:11] LABS: BLOOD UREA NITROGEN 29 MG/DL (9-23); CALCIUM LEVEL 8.7 MG/DL (8.3-10.6); CARBON DIOXIDE LEVEL 24 MMOL/L (20-31); CHLORIDE LEVEL 101 MMOL/L (98-107); CREATININE FOR GFR 1.14 MG/DL (0.70-1.30); GLOMERULAR FILTRATION RATE > 60.0 (>42); GLUCOSE, FASTING 185 MG/DL (74-106); POTASSIUM SERUM 4.4 MMOL/L (3.5-5.1); SODIUM LEVEL 134 MMOL/L (136-145)
== END ==
PROVIDERS: ATTEND Physician Assistant
DX: N18.9 Chronic kidney disease, unspecified (principal)

== ENCOUNTER → 2023-03-15 | Outpatient (REF) | payer MEDICARE, MEDICAID ==
[2023-03-15 10:57] LABS: HEMATOCRIT 28.7 % (42.0-52.0); MEAN CORPUSCULAR HEMOGLOBIN 28.6 pg (27.0-33.0); MEAN CORPUSCULAR HGB CONC 31.4 g/dl (32.0-36.5); MEAN CORPUSCULAR VOLUME 91.1 fl (80.0-96.0); PLATELET COUNT, AUTOMATED 287 10^3/uL (150-450); RED BLOOD COUNT 3.15 10^6/uL (4.30-6.10); WHITE BLOOD COUNT 8.8 10^3/uL (4.0-10.0)
[2023-03-15 11:20] LABS: CALCIUM LEVEL 8.5 MG/DL (8.3-10.6); CREATININE FOR GFR 1.44 MG/DL (0.70-1.30); GLOMERULAR FILTRATION RATE 51.5 (>42); POTASSIUM SERUM 4.7 MMOL/L (3.5-5.1)
== END ==
PROVIDERS: ATTEND Physician Assistant
DX: I95.9 Hypotension, unspecified (principal)

== ENCOUNTER → 2023-03-16 | Outpatient (REF) ==
[2023-03-16 10:13] LABS: HEMATOCRIT 32.2 % (42.0-52.0); HEMOGLOBIN 10.1 g/dl (13.5-17.5); MEAN CORPUSCULAR HEMOGLOBIN 28.3 pg (27.0-33.0); MEAN CORPUSCULAR HGB CONC 31.4 g/dl (32.0-36.5); MEAN CORPUSCULAR VOLUME 90.2 fl (80.0-96.0); PLATELET COUNT, AUTOMATED 288 10^3/uL (150-450); RED BLOOD COUNT 3.57 10^6/uL (4.30-6.10); WHITE BLOOD COUNT 9.3 10^3/uL (4.0-10.0)
[2023-03-16 11:17] LABS: BLOOD UREA NITROGEN 60 MG/DL (9-23); CARBON DIOXIDE LEVEL 19 MMOL/L (20-31); CHLORIDE LEVEL 99 MMOL/L (98-107); CK-MB VALUE MASS < 1.0 NG/ML (<3.6); CPK CREATINE PHOSPHOKINASE 35 U/L (46-171); CREATININE FOR GFR 1.45 MG/DL (0.70-1.30); GLOMERULAR FILTRATION RATE 51.1 (>42); GLUCOSE, FASTING 266 MG/DL (74-106); MB/CK RELATIVE INDEX 2.85 (< OR =4); POTASSIUM SERUM 5.8 MMOL/L (3.5-5.1); SODIUM LEVEL 131 MMOL/L (136-145); THYROID STIMULATING HORMONE 2.596 uIU/ML (0.55-4.78); THYROXINE (T4) 8.9 UG/DL (4.5-10.9)
== END ==
PROVIDERS: ATTEND Physician Assistant
DX: R55 Syncope and collapse (principal)

== ENCOUNTER → 2023-03-16 | Outpatient (REF) | PROVIDERS: ATTEND Physician Assistant | DX: N39.0 Urinary tract infection, site not specified (principal) ==

== ENCOUNTER 2023-03-18 13:18 | Emergency (ER) | payer MEDICARE, MEDICAID ==
[~2023-03-18] VITALS: Ht 172.7 cm; Wt 60.6 kg
[2023-03-18] MEDS ORDERED: NS 1,820 ML in IV 1 EA IV ONE (13:35)
[2023-03-18] MEDS ORDERED: cefTRIAXone SOD 2 GM in D5W MINI-BAG PLUS 50 ML IV ONE (13:45)
[2023-03-18 13:48] LABS: BASO % 0.1 % (0.0-1.0); HEMATOCRIT 26.6 % (42.0-52.0); HEMOGLOBIN 8.7 g/dl (13.5-17.5); LYMPH # 0.6 10^3/uL (1.5-5.0); LYMPH % 3.4 % (24.0-44.0); MEAN CORPUSCULAR HEMOGLOBIN 28.8 pg (27.0-33.0); MEAN CORPUSCULAR HGB CONC 32.7 g/dl (32.0-36.5); MEAN CORPUSCULAR VOLUME 88.1 fl (80.0-96.0); MONO # 0.3 10^3/uL (0.0-0.8); MONO % 1.9 % (2.0-8.0); NEUTROPHILS # 16.4 10^3/uL (1.5-8.5); NEUTROPHILS % 93.2 % (36.0-66.0); PLATELET COUNT, AUTOMATED 246 10^3/uL (150-450); RED BLOOD COUNT 3.02 10^6/uL (4.30-6.10); WHITE BLOOD COUNT 17.5 10^3/uL (4.0-10.0)
[2023-03-18 14:01] LABS: ABG HCO3 16.7 MMOL/L (22.0-26.0); ABG O2 SATURATION 98.4 % (95.0-99.0); ABG PARTIAL PRESSURE CO2 27.5 mmHg (35.0-45.0); ABG PARTIAL PRESSURE O2 123.7 mmHg (75.0-100.0); ABG STANDARD HCO3 18.7 MMOL/L. (22.0-26.0); ABG TOTAL CO2 17.6 MMOL/L (23.0-31.0); ABG pH (ARTERIAL) 7.402 UNITS (7.350-7.450)
[2023-03-18 14:02] LABS: INR 1.76; PROTHROMBIN TIME 20.8 SECONDS (12.5-14.5)
[2023-03-18 14:03] LABS: PARTIAL THROMBOPLASTIN TIME 42.2 SECONDS (24.8-34.2)
[2023-03-18 14:05] LABS: APPEARANCE, URINE TURBID (CLEAR); BACTERIA, URINE AUTO 1+ (NEGATIVE); BILIRUBIN, URINE AUTO NEGATIVE (NEGATIVE); BLOOD, URINE BLOOD 2+ (NEGATIVE); COLOR, URINE AMBER (YELLOW); GLUCOSE, URINE (UA) AUTO 3+ mg/dL (NEGATIVE); KETONE, URINE AUTO NEGATIVE (NEGATIVE); LEUKOCYTE ESTERASE, URINE AUTO 3+ (NEGATIVE); MUCUS, URINE SMALL (NEGATIVE); NITRITE, URINE AUTO NEGATIVE (NEGATIVE); PROTEIN, URINE AUTO 1+ mg/dL (NEGATIVE); RBC, URINE AUTO TNTC /HPF (0-3); SQUAMOUS EPITHELIAL CELL UR AU 0 /HPF (0-6); WBC, URINE AUTO TNTC /HPF (0-3)
[2023-03-18 14:13] LABS: CK-MB VALUE MASS 3.7 NG/ML (<3.6)
[2023-03-18 14:15] LABS: ALBUMIN 1.7 G/DL (3.2-5.2); BILIRUBIN,DIRECT 0.4 MG/DL (<0.4); BILIRUBIN,TOTAL 0.6 MG/DL (0.3-1.2); CALCIUM LEVEL 7.9 MG/DL (8.3-10.6); CREATININE FOR GFR 2.05 MG/DL (0.70-1.30); GLOMERULAR FILTRATION RATE 34.2 (>42); POTASSIUM SERUM 4.9 MMOL/L (3.5-5.1); TOTAL PROTEIN 6.4 G/DL (5.7-8.2)
[2023-03-18 14:17] LABS: THYROID STIMULATING HORMONE 1.785 uIU/ML (0.55-4.78)
[2023-03-18 14:22] LABS: MB/CK RELATIVE INDEX 1.2 (< OR =4)
[2023-03-18 14:29] LABS: RSV AMPLIFICATION NEGATIVE (NEGATIVE)
[2023-03-18 15:31] LABS: CK-MB VALUE MASS 2.6 NG/ML (<3.6)
[2023-03-18 15:32] LABS: MB/CK RELATIVE INDEX 0.86 (< OR =4)
[2023-03-18 15:49] VITALS: BP 111/58; TEMP 97.1; O2SAT 100
[2023-03-18 16:08] VITALS: BP 109/57; TEMP 97.1; O2SAT 100
[2023-03-18 16:54] VITALS: BP 109/54; TEMP 97.1; O2SAT 100
[2023-03-18 16:57] VITALS: BP 109/54; TEMP 97.1; O2SAT 100
[2023-03-18 20:44] LABS: PROCALCITONIN 45.82 ng/ml
[2023-03-18 21:59] LABS: C REACTIVE PROTEIN QUANTITATIV 20.6 MG/DL (<1.0)
== END 2023-03-18 17:00 | disposition short-term general hospital (02) ==
LOC: EDBD 13:18 → M ED 13:18
DX: T82.390A Other mechanical complication of aortic (bifurcation) graft (replacement), initial encounter (principal); A41.9 Sepsis, unspecified organism; D64.9 Anemia, unspecified; E11.9 Type 2 diabetes mellitus without complications; E78.5 Hyperlipidemia, unspecified; J44.9 Chronic obstructive pulmonary disease, unspecified; Z79.01 Long term (current) use of anticoagulants; Z79.02 Long term (current) use of antithrombotics/antiplatelets; Z79.899 Other long term (current) drug therapy
CPT/HCPCS: 36430; 36600; 71045; 74176; 80047; 80048; 80076; 81001; 82150; 82550; 82553; 82803; 84145; 84443; 84484; 85025; 85610; 85730; 86140; 86850; 86900; 86901; 86920; 87040; 87088; 87186; 87631; 93005; 93041; 94760; 96374; 99285; J0696; P9016

== ENCOUNTER → 2023-03-18 | Outpatient (REF) ==
[2023-03-18 09:05] LABS: CALCIUM LEVEL 8.9 MG/DL (8.3-10.6); CREATININE FOR GFR 1.82 MG/DL (0.70-1.30); GLOMERULAR FILTRATION RATE 39.3 (>42)
== END ==
PROVIDERS: ATTEND Physician Assistant
DX: N39.0 Urinary tract infection, site not specified (principal)

== ENCOUNTER → 2023-03-20 | Outpatient (REF) | PROVIDERS: ATTEND Physician Assistant | DX: N39.0 Urinary tract infection, site not specified (principal); Z53.8 Procedure and treatment not carried out for other reasons ==

== ENCOUNTER → 2023-03-29 | Outpatient (REF) | payer MEDICARE, MEDICAID | PROVIDERS: ATTEND Physician Assistant | DX: N18.9 Chronic kidney disease, unspecified (principal); Z53.8 Procedure and treatment not carried out for other reasons ==

== ENCOUNTER → 2023-04-29 | Outpatient (REF) ==
[2023-04-29 09:51] LABS: HEMATOCRIT 26.4 % (42.0-52.0); HEMOGLOBIN 8.1 g/dl (13.5-17.5); MEAN CORPUSCULAR HEMOGLOBIN 28.3 pg (27.0-33.0); MEAN CORPUSCULAR HGB CONC 30.7 g/dl (32.0-36.5); MEAN CORPUSCULAR VOLUME 92.3 fl (80.0-96.0); PLATELET COUNT, AUTOMATED 210 10^3/uL (150-450); RED BLOOD COUNT 2.86 10^6/uL (4.30-6.10); WHITE BLOOD COUNT 4.3 10^3/uL (4.0-10.0)
[2023-04-29 10:11] LABS: ERYTHROCYTE SEDIMENTATION RATE 35 mm/hr (0-20)
[2023-04-29 10:30] LABS: BLOOD UREA NITROGEN 21 MG/DL (9-23); CALCIUM LEVEL 7.4 MG/DL (8.3-10.6); CARBON DIOXIDE LEVEL 18 MMOL/L (20-31); CHLORIDE LEVEL 103 MMOL/L (98-107); CREATININE FOR GFR 1.11 MG/DL (0.70-1.30); GLOMERULAR FILTRATION RATE > 60.0 (>42); GLUCOSE, FASTING 217 MG/DL (74-106); POTASSIUM SERUM 4.2 MMOL/L (3.5-5.1); SODIUM LEVEL 131 MMOL/L (136-145)
== END ==
PROVIDERS: ATTEND Physician Assistant
DX: I10 Essential (primary) hypertension (principal)

== ENCOUNTER → 2023-05-06 | Outpatient (REF) ==
[2023-05-06 10:02] LABS: HEMATOCRIT 24.7 % (42.0-52.0); HEMOGLOBIN 7.6 g/dl (13.5-17.5); MEAN CORPUSCULAR HGB CONC 30.8 g/dl (32.0-36.5); MEAN CORPUSCULAR VOLUME 94.3 fl (80.0-96.0); PLATELET COUNT, AUTOMATED 248 10^3/uL (150-450); RED BLOOD COUNT 2.62 10^6/uL (4.30-6.10); WHITE BLOOD COUNT 4.1 10^3/uL (4.0-10.0)
[2023-05-06 10:22] LABS: ERYTHROCYTE SEDIMENTATION RATE 35 mm/hr (0-20)
[2023-05-06 10:33] LABS: BLOOD UREA NITROGEN 16 MG/DL (9-23); CALCIUM LEVEL 7.4 MG/DL (8.3-10.6); CARBON DIOXIDE LEVEL 26 MMOL/L (20-31); CHLORIDE LEVEL 104 MMOL/L (98-107); CREATININE FOR GFR 1.02 MG/DL (0.70-1.30); GLOMERULAR FILTRATION RATE > 60.0 (>42); GLUCOSE, FASTING 182 MG/DL (74-106); POTASSIUM SERUM 4.6 MMOL/L (3.5-5.1); SODIUM LEVEL 136 MMOL/L (136-145)
== END ==
PROVIDERS: ATTEND Physician Assistant
DX: I10 Essential (primary) hypertension (principal)

== ENCOUNTER → 2023-05-09 | Outpatient (REF) ==
[2023-05-09 16:26] LABS: HEMATOCRIT 25.5 % (42.0-52.0); HEMOGLOBIN 7.7 g/dl (13.5-17.5); MEAN CORPUSCULAR HEMOGLOBIN 28.8 pg (27.0-33.0); MEAN CORPUSCULAR HGB CONC 30.2 g/dl (32.0-36.5); MEAN CORPUSCULAR VOLUME 95.5 fl (80.0-96.0); PLATELET COUNT, AUTOMATED 230 10^3/uL (150-450); RED BLOOD COUNT 2.67 10^6/uL (4.30-6.10); WHITE BLOOD COUNT 3.5 10^3/uL (4.0-10.0)
[2023-05-09 16:40] LABS: BLOOD UREA NITROGEN 20 MG/DL (9-23); CALCIUM LEVEL 7.4 MG/DL (8.3-10.6); CARBON DIOXIDE LEVEL 26 MMOL/L (20-31); CHLORIDE LEVEL 102 MMOL/L (98-107); CREATININE FOR GFR 1.19 MG/DL (0.70-1.30); GLOMERULAR FILTRATION RATE > 60.0 (>42); GLUCOSE, FASTING 176 MG/DL (74-106); POTASSIUM SERUM 4.2 MMOL/L (3.5-5.1); SODIUM LEVEL 133 MMOL/L (136-145)
== END ==
PROVIDERS: ATTEND Physician Assistant
DX: D64.9 Anemia, unspecified (principal)

== ENCOUNTER 2023-05-11 08:30 | Outpatient (CLI) | payer MEDICARE, MEDICAID ==
[~2023-05-11] VITALS: Ht 180.3 cm; Wt 56.8 kg
[2023-05-11] VITALS (8 sets, daily range): BP systolic 101–139; BP diastolic 53–71; TEMP 96.6–98; O2SAT 97–100
[~2023-05-11 08:30] MED LIST changes: +ACETAMINOPHEN TAB 650MG DOSE (2X325MG) PO SCH; +diphenhydrAMINE 25MG CAP PO SCH
== END 2023-05-11 14:35 ==
LOC: M INFU 08:30
PROVIDERS: ATTEND Physician Assistant
DX: D64.9 Anemia, unspecified (principal); Z88.0 Allergy status to penicillin; Z88.1 Allergy status to other antibiotic agents; Z88.2 Allergy status to sulfonamides; Z88.8 Allergy status to other drugs, medicaments and biological substances
CPT/HCPCS: 36430; P9016

== ENCOUNTER → 2023-05-25 | Outpatient (REF) | payer MEDICARE, MEDICAID ==
[~2023-05-25] MED LIST changes: -ACETAMINOPHEN TAB 650MG DOSE (2X325MG) PO SCH; -diphenhydrAMINE 25MG CAP PO SCH
[2023-05-25 10:39] LABS: HEMATOCRIT 30.5 % (42.0-52.0); HEMOGLOBIN 9.4 g/dl (13.5-17.5); MEAN CORPUSCULAR HEMOGLOBIN 28.8 pg (27.0-33.0); MEAN CORPUSCULAR HGB CONC 30.8 g/dl (32.0-36.5); MEAN CORPUSCULAR VOLUME 93.6 fl (80.0-96.0); PLATELET COUNT, AUTOMATED 181 10^3/uL (150-450); RED BLOOD COUNT 3.26 10^6/uL (4.30-6.10); WHITE BLOOD COUNT 3.5 10^3/uL (4.0-10.0)
[2023-05-25 11:07] LABS: C REACTIVE PROTEIN QUANTITATIV 2.4 MG/DL (<1.0)
[2023-05-25 11:08] LABS: CALCIUM LEVEL 8.1 MG/DL (8.3-10.6); CREATININE FOR GFR 1.38 MG/DL (0.70-1.30); GLOMERULAR FILTRATION RATE 54.1 (>42); POTASSIUM SERUM 4.4 MMOL/L (3.5-5.1)
[2023-05-25 11:11] LABS: ALBUMIN 1.8 G/DL (3.2-5.2); BILIRUBIN,TOTAL 0.4 MG/DL (0.3-1.2); CALCIUM LEVEL 8.3 MG/DL (8.3-10.6); CREATININE FOR GFR 1.38 MG/DL (0.70-1.30); GLOMERULAR FILTRATION RATE 54.1 (>42); POTASSIUM SERUM 4.4 MMOL/L (3.5-5.1); TOTAL PROTEIN 5.9 G/DL (5.7-8.2)
== END ==
PROVIDERS: ATTEND Physician Assistant
DX: D64.9 Anemia, unspecified (principal); Z86.14 Personal history of Methicillin resistant Staphylococcus aureus infection

== ENCOUNTER → 2023-05-30 | Outpatient (REF) | payer MEDICARE, MEDICAID ==
[~2023-05-30] MED LIST changes: -CEFD300C41 PO; +CEFD300C42 PO
[2023-05-30 16:47] LABS: APPEARANCE, URINE HAZY (CLEAR); BACTERIA, URINE AUTO NEGATIVE (NEGATIVE); BILIRUBIN, URINE AUTO NEGATIVE (NEGATIVE); BLOOD, URINE BLOOD 2+ (NEGATIVE); COLOR, URINE YELLOW (YELLOW); GLUCOSE, URINE (UA) AUTO NEGATIVE (NEGATIVE); KETONE, URINE AUTO NEGATIVE (NEGATIVE); LEUKOCYTE ESTERASE, URINE AUTO 3+ (NEGATIVE); NITRITE, URINE AUTO NEGATIVE (NEGATIVE); PROTEIN, URINE AUTO NEGATIVE (NEGATIVE); RBC, URINE AUTO 52 /HPF (0-3); SPECIFIC GRAVITY URINE AUTO 1.005 (1.002-1.035); SQUAMOUS EPITHELIAL CELL UR AU 0 /HPF (0-6); UROBILINOGEN, URINE AUTO 0.2 mg/dL (0.0-2.0); WBC, URINE AUTO 76 /HPF (0-3)
== END ==
LOC: M SMT 13:25
PROVIDERS: ATTEND Physician Assistant
DX: R31.0 Gross hematuria (principal)

== ENCOUNTER → 2023-06-01 | Outpatient (REF) ==
[2023-06-01 16:09] LABS: HEMATOCRIT 29.3 % (42.0-52.0); HEMOGLOBIN 8.9 g/dl (13.5-17.5); MEAN CORPUSCULAR HEMOGLOBIN 28.7 pg (27.0-33.0); MEAN CORPUSCULAR HGB CONC 30.4 g/dl (32.0-36.5); MEAN CORPUSCULAR VOLUME 94.5 fl (80.0-96.0); PLATELET COUNT, AUTOMATED 132 10^3/uL (150-450); WHITE BLOOD COUNT 4.4 10^3/uL (4.0-10.0)
[2023-06-01 16:39] LABS: CALCIUM LEVEL 8.4 MG/DL (8.3-10.6); CREATININE FOR GFR 1.6 MG/DL (0.70-1.30); GLOMERULAR FILTRATION RATE 45.6 (>42); POTASSIUM SERUM 4.6 MMOL/L (3.5-5.1)
== END ==
PROVIDERS: ATTEND Physician Assistant
DX: R53.83 Other fatigue (principal)

== ENCOUNTER 2023-06-03 15:20 | Observation (INO) | payer MEDICARE, MEDICAID ==
[~2023-06-03] VITALS: Ht 180.3 cm; Wt 49.4 kg
[~2023-06-03 15:20] MED LIST changes: +CEFD1CAP9 PO; -CEFD300C42 PO; -FLUT50SP17 INH; +FLUTISP INH
[2023-06-03] MEDS ORDERED: NS 1,000 ML IV ONE (15:35)
[2023-06-03 16:03] LABS: HEMATOCRIT 29.9 % (42.0-52.0); HEMOGLOBIN 9.3 g/dl (13.5-17.5); LYMPH # 1.3 10^3/uL (1.5-5.0); LYMPH % 31.6 % (24.0-44.0); MEAN CORPUSCULAR HEMOGLOBIN 28.8 pg (27.0-33.0); MEAN CORPUSCULAR HGB CONC 31.1 g/dl (32.0-36.5); MEAN CORPUSCULAR VOLUME 92.6 fl (80.0-96.0); MONO # 0.4 10^3/uL (0.0-0.8); MONO % 8.7 % (2.0-8.0); NEUTROPHILS # 2.5 10^3/uL (1.5-8.5); NEUTROPHILS % 59.2 % (36.0-66.0); PLATELET COUNT, AUTOMATED 145 10^3/uL (150-450); RED BLOOD COUNT 3.23 10^6/uL (4.30-6.10); WHITE BLOOD COUNT 4.2 10^3/uL (4.0-10.0)
[2023-06-03 16:19] LABS: INR 2.06; PROTHROMBIN TIME 22.7 SECONDS (12.5-14.5)
[2023-06-03 16:20] LABS: PARTIAL THROMBOPLASTIN TIME 42.2 SECONDS (24.8-34.2)
[2023-06-03 16:24] LABS: BILIRUBIN,DIRECT 0.2 MG/DL (<0.4); BILIRUBIN,TOTAL 0.4 MG/DL (0.3-1.2); CALCIUM LEVEL 8.3 MG/DL (8.3-10.6); CREATININE FOR GFR 1.79 MG/DL (0.70-1.30); GLOMERULAR FILTRATION RATE 40.1 (>42); POTASSIUM SERUM 4.6 MMOL/L (3.5-5.1); TOTAL PROTEIN 6.4 G/DL (5.7-8.2)
[2023-06-03 16:25] LABS: CK-MB VALUE MASS 2.4 NG/ML (<3.6)
[2023-06-03 16:28] LABS: FREE T4 1.05 NG/DL (0.89-1.76); THYROID STIMULATING HORMONE 2.759 uIU/ML (0.55-4.78)
[2023-06-03 16:34] LABS: APPEARANCE, URINE TURBID (CLEAR); BACTERIA, URINE AUTO 3+ (NEGATIVE); BILIRUBIN, URINE AUTO NEGATIVE (NEGATIVE); BLOOD, URINE BLOOD 1+ (NEGATIVE); COLOR, URINE AMBER (YELLOW); GLUCOSE, URINE (UA) AUTO NEGATIVE (NEGATIVE); KETONE, URINE AUTO NEGATIVE (NEGATIVE); LEUKOCYTE ESTERASE, URINE AUTO 3+ (NEGATIVE); MUCUS, URINE SMALL (NEGATIVE); NITRITE, URINE AUTO NEGATIVE (NEGATIVE); PROTEIN, URINE AUTO 2+ mg/dL (NEGATIVE); RBC, URINE AUTO 79 /HPF (0-3); SPECIFIC GRAVITY URINE AUTO 1.025 (1.002-1.035); SQUAMOUS EPITHELIAL CELL UR AU 0 /HPF (0-6); UROBILINOGEN, URINE AUTO 0.2 mg/dL (0.0-2.0); WBC, URINE AUTO TNTC /HPF (0-3)
[2023-06-03] MEDS ORDERED: cefTRIAXone SOD 2 GM in D5W MINI-BAG PLUS 50 ML IV ONE (16:40)
[2023-06-03 16:41] LABS: RSV AMPLIFICATION NEGATIVE (NEGATIVE)
[2023-06-03] MEDS ORDERED: ISOVUE-370 76% 100ML VIAL As Ordered ONE (16:46)
[2023-06-03] MEDS ORDERED: ACETAMINOPHEN TAB 650MG DOSE (2X325MG) PO PRN (18:10)
[2023-06-03] MEDS ORDERED: MED REC IN PROGRESS XX SCH (18:10)
[2023-06-03] MEDS: NS 1,000 ML IV SCH (18:57)
[2023-06-03] MEDS ORDERED: MIRT-88 PO (20:54)
[2023-06-03] MEDS ORDERED: CLOP75TA2 PO (20:54)
[2023-06-03] MEDS ORDERED: FOLI1TAB11 PO (20:54)
[2023-06-03] MEDS ORDERED: OXYC-517 PO ×2 (20:54→21:11)
[2023-06-03] MEDS ORDERED: FERR325T3 PO (20:54)
[2023-06-03] MEDS ORDERED: LISI20TA33 PO (20:54)
[2023-06-03] MEDS ORDERED: AMLO2.5T3 PO (20:54)
[2023-06-03] MEDS ORDERED: SERT50TA29 PO (20:54)
[2023-06-03] MEDS ORDERED: APIXABAN 2.5 MG TAB (ELIQUIS) PO SCH (21:00)
[2023-06-03] MEDS: FLUTICASONE PROP 0.05% NASAL SPRAY 16 GM (FLONASE) NARES SCH ×3 (21:00→23:28)
[2023-06-03] MEDS: ISOSORBIDE DIN. (ISORDIL) 30 MG TAB PO SCH (21:00)
[2023-06-03] MEDS ORDERED: ISOS30TAB PO (21:11)
[2023-06-03] MEDS ORDERED: FLON1SPR NARES (21:11)
[2023-06-03] MEDS ORDERED: ACID1TAB PO (21:11)
[2023-06-03] MEDS ORDERED: FAMO20TA PO (21:11)
[2023-06-03] MEDS ORDERED: GLUCLIQ37 PO (21:11)
[2023-06-03] MEDS ORDERED: [UNRECOGNIZED DRUG - CODE] PO (21:11)
[2023-06-03] MEDS ORDERED: APAP325T4 PO (21:11)
[2023-06-03] MEDS ORDERED: CEPH500C PO (21:11)
[2023-06-03] MEDS ORDERED: ALBU8.5H INH (21:11)
[2023-06-03] MEDS ORDERED: DOXY100T PO (21:11)
[2023-06-03] MEDS ORDERED: JUVE1POW PO (21:11)
[2023-06-03] MEDS ORDERED: ACET1TAB55 PO (21:11)
[2023-06-03] MEDS ORDERED: HOME MED LIST COMPLETE! XX SCH (21:15)
[2023-06-03 21:50] VITALS: BP_SYST 112; BP_SYST 125; BP_DIAS 58; BP_DIAS 74; TEMP 97.2
[2023-06-03] MEDS ORDERED: BISACODYL 10MG SUPP PR PRN (22:30)
[2023-06-03] MEDS ORDERED: ALBUTEROL 90 MCG/ACT 8GM HFA INHALER INH PRN (22:30)
[2023-06-03] MEDS ORDERED: oxyCODONE 5MG TAB PO PRN (22:30)
[2023-06-03 23:14] VITALS: BP 112/58; TEMP 97.2
[2023-06-03] MEDS: FINASTERIDE 5MG TAB PO SCH (23:25)
[2023-06-03] MEDS: MIRTAZAPINE 7.5MG PER 1/2 TABLET PO SCH (23:25)
[2023-06-03] MEDS: TAMSULOSIN 0.4 MG CAP PO SCH (23:25)
[2023-06-03] MEDS: ATORVASTATIN 20 MG TAB PO SCH (23:25)
[2023-06-03] MEDS: SERTRALINE HCL 50 MG TAB PO SCH (23:25)
[2023-06-03] MEDS: FAMOTIDINE 20 MG TAB PO SCH (23:26)
[2023-06-03] MEDS: APIXABAN 5 MG TAB (ELIQUIS) PO SCH (23:26)
[2023-06-03 23:44] VITALS: BP 112/58
[2023-06-04 05:32] VITALS: BP 109/55; TEMP 97.9; O2SAT 100
[2023-06-04 06:17] LABS: HEMATOCRIT 29.1 % (42.0-52.0); HEMOGLOBIN 8.8 g/dl (13.5-17.5); MEAN CORPUSCULAR HEMOGLOBIN 28.7 pg (27.0-33.0); MEAN CORPUSCULAR HGB CONC 30.2 g/dl (32.0-36.5); MEAN CORPUSCULAR VOLUME 94.8 fl (80.0-96.0); PLATELET COUNT, AUTOMATED 110 10^3/uL (150-450); RED BLOOD COUNT 3.07 10^6/uL (4.30-6.10); WHITE BLOOD COUNT 3.6 10^3/uL (4.0-10.0)
[2023-06-04 06:39] LABS: CREATININE FOR GFR 1.35 MG/DL (0.70-1.30); GLOMERULAR FILTRATION RATE 55.5 (>42); POTASSIUM SERUM 3.9 MMOL/L (3.5-5.1)
[2023-06-04] MEDS: SALMETEROL DISKUS 50MCG INHALER (SEREVENT) INH SCH ×3 (08:00→19:46)
[2023-06-04] MEDS: TIOTROPIUM INHALER/CAPSULE (SPIRIVA) INH SCH (08:15)
[2023-06-04] MEDS: CLOPIDOGREL 75 MG TAB PO SCH (08:58)
[2023-06-04] MEDS: FERROUS SULFATE 325MG TAB PO SCH (08:58)
[2023-06-04] MEDS: LACTOBACILLUS ACIDOPHILUS CAP (BACID) PO SCH ×2 (08:58→17:32)
[2023-06-04] MEDS: FAMOTIDINE 20 MG TAB PO SCH ×2 (08:58→21:18)
[2023-06-04] MEDS: ISOSORBIDE DIN. (ISORDIL) 30 MG TAB PO SCH ×3 (08:59→21:00)
[2023-06-04] MEDS: APIXABAN 5 MG TAB (ELIQUIS) PO SCH ×2 (08:59→21:18)
[2023-06-04] MEDS: NS 1,000 ML IV SCH (09:00)
[2023-06-04 14:00] VITALS: BP 113/88; TEMP 97.7; O2SAT 100
[2023-06-04] MEDS: cefTRIAXone SOD 2 GM in D5W MINI-BAG PLUS 50 ML IV SCH (17:32)
[2023-06-04 20:26] VITALS: BP 119/51; TEMP 97.9; O2SAT 100
[2023-06-04] MEDS: FINASTERIDE 5MG TAB PO SCH (21:17)
[2023-06-04] MEDS: TAMSULOSIN 0.4 MG CAP PO SCH (21:17)
[2023-06-04] MEDS: MIRTAZAPINE 7.5MG PER 1/2 TABLET PO SCH (21:18)
[2023-06-04] MEDS: ATORVASTATIN 20 MG TAB PO SCH (21:18)
[2023-06-04] MEDS: FLUTICASONE PROP 0.05% NASAL SPRAY 16 GM (FLONASE) NARES SCH (21:18)
[2023-06-04] MEDS: SERTRALINE HCL 50 MG TAB PO SCH (21:18)
[2023-06-05 05:24] VITALS: BP 117/52; TEMP 97.3; O2SAT 100
[2023-06-05] MEDS: SALMETEROL DISKUS 50MCG INHALER (SEREVENT) INH SCH ×2 (07:57→19:11)
[2023-06-05] MEDS: TIOTROPIUM INHALER/CAPSULE (SPIRIVA) INH SCH (07:57)
[2023-06-05 09:02] VITALS: BP 137/76
[2023-06-05] MEDS: FERROUS SULFATE 325MG TAB PO SCH (09:09)
[2023-06-05] MEDS: LACTOBACILLUS ACIDOPHILUS CAP (BACID) PO SCH ×2 (09:09→17:24)
[2023-06-05] MEDS: ISOSORBIDE DIN. (ISORDIL) 30 MG TAB PO SCH ×3 (09:09→20:43)
[2023-06-05] MEDS: FLUTICASONE PROP 0.05% NASAL SPRAY 16 GM (FLONASE) NARES SCH ×2 (09:10→20:44)
[2023-06-05] MEDS: FAMOTIDINE 20 MG TAB PO SCH ×2 (09:10→20:44)
[2023-06-05] MEDS: CLOPIDOGREL 75 MG TAB PO SCH (09:10)
[2023-06-05] MEDS: APIXABAN 5 MG TAB (ELIQUIS) PO SCH ×2 (09:10→20:44)
[2023-06-05 14:00] VITALS: BP 107/57; TEMP 98.3; O2SAT 100
[2023-06-05] MEDS: cefTRIAXone SOD 2 GM in D5W MINI-BAG PLUS 50 ML IV SCH (17:24)
[2023-06-05] MEDS ORDERED: CALCIUM CARBONATE 500 MG CHEW U/D PO ONE (19:50)
[2023-06-05 19:52] VITALS: BP 122/64; TEMP 98.1; O2SAT 98
[2023-06-05] MEDS: SERTRALINE HCL 50 MG TAB PO SCH (20:43)
[2023-06-05] MEDS: MIRTAZAPINE 7.5MG PER 1/2 TABLET PO SCH (20:43)
[2023-06-05] MEDS: FINASTERIDE 5MG TAB PO SCH (20:43)
[2023-06-05] MEDS: ATORVASTATIN 20 MG TAB PO SCH (20:44)
[2023-06-05] MEDS: TAMSULOSIN 0.4 MG CAP PO SCH (20:44)
[2023-06-06 05:38] VITALS: BP 119/62; TEMP 97.9; O2SAT 99
[2023-06-06] MEDS ORDERED: BACI1CAP PO (07:52)
[2023-06-06] MEDS ORDERED: CEPH500C PO (07:52)
[2023-06-06] MEDS: APIXABAN 5 MG TAB (ELIQUIS) PO SCH ×2 (08:39→21:43)
[2023-06-06] MEDS: FERROUS SULFATE 325MG TAB PO SCH (08:39)
[2023-06-06] MEDS: LACTOBACILLUS ACIDOPHILUS CAP (BACID) PO SCH ×2 (08:39→17:12)
[2023-06-06] MEDS: FAMOTIDINE 20 MG TAB PO SCH ×2 (08:41→21:43)
[2023-06-06] MEDS: CLOPIDOGREL 75 MG TAB PO SCH (08:41)
[2023-06-06] MEDS: FLUTICASONE PROP 0.05% NASAL SPRAY 16 GM (FLONASE) NARES SCH ×2 (08:43→21:00)
[2023-06-06] MEDS: ISOSORBIDE DIN. (ISORDIL) 30 MG TAB PO SCH ×3 (08:43→21:42)
[2023-06-06] MEDS: SALMETEROL DISKUS 50MCG INHALER (SEREVENT) INH SCH ×2 (11:16→20:50)
[2023-06-06] MEDS: TIOTROPIUM INHALER/CAPSULE (SPIRIVA) INH SCH (11:16)
[2023-06-06 11:37] LABS: BLOOD UREA NITROGEN 29 MG/DL (9-23); CALCIUM LEVEL 7.2 MG/DL (8.3-10.6); CARBON DIOXIDE LEVEL 23 MMOL/L (20-31); CHLORIDE LEVEL 111 MMOL/L (98-107); CREATININE FOR GFR 0.99 MG/DL (0.70-1.30); GLOMERULAR FILTRATION RATE > 60.0 (>42); GLUCOSE, FASTING 227 MG/DL (74-106); POTASSIUM SERUM 3.3 MMOL/L (3.5-5.1); SODIUM LEVEL 143 MMOL/L (136-145)
[2023-06-06] MEDS: cefTRIAXone SOD 2 GM in D5W MINI-BAG PLUS 50 ML IV SCH (17:12)
[2023-06-06] MEDS: TAMSULOSIN 0.4 MG CAP PO SCH (21:43)
[2023-06-06] MEDS: MIRTAZAPINE 7.5MG PER 1/2 TABLET PO SCH (21:43)
[2023-06-06] MEDS: SERTRALINE HCL 50 MG TAB PO SCH (21:43)
[2023-06-06] MEDS: ATORVASTATIN 20 MG TAB PO SCH (21:43)
[2023-06-06] MEDS: FINASTERIDE 5MG TAB PO SCH (21:43)
[2023-06-07] VITALS (8 sets, daily range): BP systolic 100–125; BP diastolic 40–59; TEMP 97.3–98.1; O2SAT 99–100
[2023-06-07] MEDS: TIOTROPIUM INHALER/CAPSULE (SPIRIVA) INH SCH (07:44)
[2023-06-07] MEDS: SALMETEROL DISKUS 50MCG INHALER (SEREVENT) INH SCH ×2 (07:45→19:24)
[2023-06-07] MEDS: FAMOTIDINE 20 MG TAB PO SCH (08:28)
[2023-06-07] MEDS: APIXABAN 5 MG TAB (ELIQUIS) PO SCH (08:28)
[2023-06-07] MEDS: LACTOBACILLUS ACIDOPHILUS CAP (BACID) PO SCH ×2 (08:28→17:12)
[2023-06-07] MEDS: FLUTICASONE PROP 0.05% NASAL SPRAY 16 GM (FLONASE) NARES SCH ×2 (08:30→20:24)
[2023-06-07] MEDS: CLOPIDOGREL 75 MG TAB PO SCH (08:30)
[2023-06-07] MEDS: FERROUS SULFATE 325MG TAB PO SCH (08:30)
[2023-06-07] MEDS: ISOSORBIDE DIN. (ISORDIL) 30 MG TAB PO SCH ×3 (08:31→20:24)
[2023-06-07] MEDS ORDERED: E-Z-HD 98% w/w 340GM SUSP BTL As Ordered ONE (10:00)
[2023-06-07] MEDS ORDERED: E-Z-GAS II EFFERVESCENT PACKET (SODIUM BICARB./CITRIC ACID/SIMETHICONE) As Ordered ONE (10:00)
[2023-06-07] MEDS ORDERED: E-Z-PAQUE 96% w/w SUSP 176GM BTL As Ordered ONE (10:00)
[2023-06-07] MEDS: PANTOPRAZOLE 40MG VIAL IV SCH ×2 (10:28→20:22)
[2023-06-07] MEDS: SUCRALFATE SUSP 1GM/10ML UD PO SCH ×3 (10:28→17:12)
[2023-06-07] MEDS ORDERED: LIDOCAINE 2% 100MG/5ML SDV (FOR ANES.) As Ordered ONE (11:12)
[2023-06-07] MEDS ORDERED: fentaNYL 100 MCG/2 ML INJECTION As Ordered ONE (11:12)
[2023-06-07] MEDS ORDERED: propofoL 200 MG/20 ML VIAL As Ordered ONE (11:12)
[2023-06-07 12:12] LABS: HEMOGLOBIN 8.1 g/dl (13.5-17.5)
[2023-06-07] MEDS: KCL 20MEQ in NS 1000ML 1,000 ML IV SCH (15:33)
[2023-06-07] MEDS ORDERED: ISOVUE-370 76% 100ML VIAL As Ordered ONE (16:02)
[2023-06-07] MEDS: cefTRIAXone SOD 2 GM in D5W MINI-BAG PLUS 50 ML IV SCH (17:10)
[2023-06-07 18:24] LABS: HEMOGLOBIN 7.7 g/dl (13.5-17.5)
[2023-06-07] MEDS: ATORVASTATIN 20 MG TAB PO SCH (20:21)
[2023-06-07] MEDS: FINASTERIDE 5MG TAB PO SCH (20:21)
[2023-06-07] MEDS: SERTRALINE HCL 50 MG TAB PO SCH (20:21)
[2023-06-07] MEDS: TAMSULOSIN 0.4 MG CAP PO SCH (20:22)
[2023-06-07] MEDS: MIRTAZAPINE 7.5MG PER 1/2 TABLET PO SCH (20:22)
[2023-06-08] VITALS (7 sets, daily range): BP systolic 115–131; BP diastolic 53–61; TEMP 97.3–97.7; O2SAT 98–100
[2023-06-08] MEDS: SUCRALFATE SUSP 1GM/10ML UD PO SCH ×5 (00:22→23:11)
[2023-06-08 00:40] LABS: HEMATOCRIT 24.1 % (42.0-52.0); HEMOGLOBIN 7.7 g/dl (13.5-17.5)
[2023-06-08] MEDS: KCL 20MEQ in NS 1000ML 1,000 ML IV SCH ×3 (02:02→23:11)
[2023-06-08 06:26] LABS: HEMATOCRIT 22.8 % (42.0-52.0); HEMOGLOBIN 7.4 g/dl (13.5-17.5)
[2023-06-08] MEDS: SALMETEROL DISKUS 50MCG INHALER (SEREVENT) INH SCH ×2 (07:25→20:26)
[2023-06-08] MEDS: TIOTROPIUM INHALER/CAPSULE (SPIRIVA) INH SCH (07:46)
[2023-06-08] MEDS: LACTOBACILLUS ACIDOPHILUS CAP (BACID) PO SCH ×2 (08:00→18:07)
[2023-06-08] MEDS: CLOPIDOGREL 75 MG TAB PO SCH (09:29)
[2023-06-08] MEDS: FERROUS SULFATE 325MG TAB PO SCH (09:29)
[2023-06-08] MEDS: PANTOPRAZOLE 40MG VIAL IV SCH ×2 (09:29→20:18)
[2023-06-08] MEDS: ISOSORBIDE DIN. (ISORDIL) 30 MG TAB PO SCH ×3 (09:35→20:23)
[2023-06-08 09:53] LABS: BLOOD UREA NITROGEN 14 MG/DL (9-23); CALCIUM LEVEL 7.2 MG/DL (8.3-10.6); CARBON DIOXIDE LEVEL 20 MMOL/L (20-31); CHLORIDE LEVEL 114 MMOL/L (98-107); CREATININE FOR GFR 0.86 MG/DL (0.70-1.30); GLOMERULAR FILTRATION RATE > 60.0 (>42); GLUCOSE, FASTING 89 MG/DL (74-106); POTASSIUM SERUM 4.1 MMOL/L (3.5-5.1); SODIUM LEVEL 141 MMOL/L (136-145)
[2023-06-08] MEDS ORDERED: ONDANSETRON 4MG 2ML VIAL IV ONE (11:00)
[2023-06-08] MEDS ORDERED: E-Z-GAS II EFFERVESCENT PACKET (SODIUM BICARB./CITRIC ACID/SIMETHICONE) As Ordered ONE (11:20)
[2023-06-08] MEDS ORDERED: E-Z-HD 98% w/w 340GM SUSP BTL As Ordered ONE (11:20)
[2023-06-08] MEDS ORDERED: E-Z-PAQUE 96% w/w SUSP 176GM BTL As Ordered ONE (11:20)
[2023-06-08] MEDS: FLUTICASONE PROP 0.05% NASAL SPRAY 16 GM (FLONASE) NARES SCH ×2 (12:31→21:38)
[2023-06-08] MEDS ORDERED: ONDANSETRON 4MG 2ML VIAL IV PRN (15:00)
[2023-06-08 17:00] LABS: HEMATOCRIT 26.6 % (42.0-52.0); HEMOGLOBIN 8.5 g/dl (13.5-17.5)
[2023-06-08 17:44] LABS: HEMATOCRIT 25.5 % (42.0-52.0); HEMOGLOBIN 8.3 g/dl (13.5-17.5)
[2023-06-08] MEDS: cefTRIAXone SOD 2 GM in D5W MINI-BAG PLUS 50 ML IV SCH (18:07)
[2023-06-08] MEDS: SERTRALINE HCL 50 MG TAB PO SCH (20:17)
[2023-06-08] MEDS: ATORVASTATIN 20 MG TAB PO SCH (20:17)
[2023-06-08] MEDS: TAMSULOSIN 0.4 MG CAP PO SCH (20:17)
[2023-06-08] MEDS: FINASTERIDE 5MG TAB PO SCH (20:17)
[2023-06-08] MEDS: MIRTAZAPINE 7.5MG PER 1/2 TABLET PO SCH (20:22)
[2023-06-09 00:26] LABS: HEMATOCRIT 24.6 % (42.0-52.0); HEMOGLOBIN 8.1 g/dl (13.5-17.5)
[2023-06-09 06:00] VITALS: BP 126/60; TEMP 97.7; O2SAT 97
[2023-06-09] MEDS: SUCRALFATE SUSP 1GM/10ML UD PO SCH ×4 (06:03→23:58)
[2023-06-09 07:49] LABS: HEMATOCRIT 25.3 % (42.0-52.0); HEMOGLOBIN 8.2 g/dl (13.5-17.5)
[2023-06-09] MEDS: SALMETEROL DISKUS 50MCG INHALER (SEREVENT) INH SCH ×2 (07:55→19:41)
[2023-06-09] MEDS: TIOTROPIUM INHALER/CAPSULE (SPIRIVA) INH SCH (07:55)
[2023-06-09 08:13] LABS: BLOOD UREA NITROGEN 12 MG/DL (9-23); CARBON DIOXIDE LEVEL 22 MMOL/L (20-31); CHLORIDE LEVEL 114 MMOL/L (98-107); CREATININE FOR GFR 0.89 MG/DL (0.70-1.30); GLOMERULAR FILTRATION RATE > 60.0 (>42); GLUCOSE, FASTING 78 MG/DL (74-106); POTASSIUM SERUM 3.9 MMOL/L (3.5-5.1); SODIUM LEVEL 142 MMOL/L (136-145)
[2023-06-09] MEDS: KCL 20MEQ in NS 1000ML 1,000 ML IV SCH ×2 (10:21→17:46)
[2023-06-09] MEDS: FERROUS SULFATE 325MG TAB PO SCH (10:22)
[2023-06-09] MEDS: CLOPIDOGREL 75 MG TAB PO SCH (10:22)
[2023-06-09] MEDS: PANTOPRAZOLE 40MG VIAL IV SCH ×2 (10:24→20:38)
[2023-06-09] MEDS: FLUTICASONE PROP 0.05% NASAL SPRAY 16 GM (FLONASE) NARES SCH ×2 (10:24→20:38)
[2023-06-09] MEDS: LACTOBACILLUS ACIDOPHILUS CAP (BACID) PO SCH ×2 (10:26→17:46)
[2023-06-09] MEDS: ISOSORBIDE DIN. (ISORDIL) 30 MG TAB PO SCH ×3 (10:27→20:34)
[2023-06-09 12:22] LABS: HEMATOCRIT 25.1 % (42.0-52.0); HEMOGLOBIN 8.1 g/dl (13.5-17.5)
[2023-06-09 17:38] VITALS: BP 108/52
[2023-06-09] MEDS: cefTRIAXone SOD 2 GM in D5W MINI-BAG PLUS 50 ML IV SCH (17:46)
[2023-06-09 18:53] LABS: HEMATOCRIT 24.6 % (42.0-52.0)
[2023-06-09] MEDS: SERTRALINE HCL 50 MG TAB PO SCH (20:34)
[2023-06-09] MEDS: FINASTERIDE 5MG TAB PO SCH (20:34)
[2023-06-09] MEDS: MIRTAZAPINE 7.5MG PER 1/2 TABLET PO SCH (20:35)
[2023-06-09] MEDS: ATORVASTATIN 20 MG TAB PO SCH (20:37)
[2023-06-09] MEDS: TAMSULOSIN 0.4 MG CAP PO SCH (20:38)
[2023-06-09 22:23] VITALS: BP 126/60; TEMP 97.9; O2SAT 100
[2023-06-10 00:06] LABS: HEMATOCRIT 25.8 % (42.0-52.0); HEMOGLOBIN 8.3 g/dl (13.5-17.5)
[2023-06-10] MEDS: KCL 20MEQ in NS 1000ML 1,000 ML IV SCH (02:11)
[2023-06-10] MEDS: SUCRALFATE SUSP 1GM/10ML UD PO SCH ×3 (05:21→17:41)
[2023-06-10 05:23] VITALS: BP 122/56; TEMP 97.9; O2SAT 100
[2023-06-10 05:55] LABS: HEMATOCRIT 24.7 % (42.0-52.0)
[2023-06-10] MEDS: SALMETEROL DISKUS 50MCG INHALER (SEREVENT) INH SCH ×2 (07:52→19:14)
[2023-06-10] MEDS: TIOTROPIUM INHALER/CAPSULE (SPIRIVA) INH SCH (07:53)
[2023-06-10] MEDS: CLOPIDOGREL 75 MG TAB PO SCH (08:17)
[2023-06-10] MEDS: FLUTICASONE PROP 0.05% NASAL SPRAY 16 GM (FLONASE) NARES SCH ×2 (08:17→20:38)
[2023-06-10] MEDS: FERROUS SULFATE 325MG TAB PO SCH (08:17)
[2023-06-10] MEDS: PANTOPRAZOLE 40MG VIAL IV SCH ×2 (08:17→20:38)
[2023-06-10] MEDS: ISOSORBIDE DIN. (ISORDIL) 30 MG TAB PO SCH ×3 (08:18→20:37)
[2023-06-10] MEDS: LACTOBACILLUS ACIDOPHILUS CAP (BACID) PO SCH ×2 (08:18→17:41)
[2023-06-10 14:08] LABS: BLOOD UREA NITROGEN 9 MG/DL (7-21); CARBON DIOXIDE LEVEL 18 MEQ/L (22-30); CHLORIDE LEVEL 114 MEQ/L (98-107); CREATININE FOR GFR 0.8 MG/DL (0.7-1.5); GLOMERULAR FILTRATION RATE > 60.0 (>42); GLUCOSE, FASTING 59 MG/DL; POTASSIUM SERUM 4.6 MEQ/L (3.6-5.0); SODIUM LEVEL 140 MEQ/L (134-153)
[2023-06-10 14:09] LABS: CALCIUM LEVEL 7.4 MG/DL (8.8-10.2)
[2023-06-10] MEDS: ATORVASTATIN 20 MG TAB PO SCH (20:37)
[2023-06-10] MEDS: SERTRALINE HCL 50 MG TAB PO SCH (20:37)
[2023-06-10] MEDS: MIRTAZAPINE 7.5MG PER 1/2 TABLET PO SCH (20:37)
[2023-06-10] MEDS: TAMSULOSIN 0.4 MG CAP PO SCH (20:37)
[2023-06-10] MEDS: FINASTERIDE 5MG TAB PO SCH (20:37)
[2023-06-11] MEDS: SUCRALFATE SUSP 1GM/10ML UD PO SCH ×5 (00:18→23:36)
[2023-06-11 06:00] VITALS: BP 121/65; TEMP 98.2; O2SAT 100
[2023-06-11] MEDS: TIOTROPIUM INHALER/CAPSULE (SPIRIVA) INH SCH (07:44)
[2023-06-11] MEDS: SALMETEROL DISKUS 50MCG INHALER (SEREVENT) INH SCH ×2 (07:44→19:39)
[2023-06-11] MEDS: FERROUS SULFATE 325MG TAB PO SCH (08:35)
[2023-06-11] MEDS: LACTOBACILLUS ACIDOPHILUS CAP (BACID) PO SCH ×2 (08:35→17:50)
[2023-06-11] MEDS: ISOSORBIDE DIN. (ISORDIL) 30 MG TAB PO SCH ×3 (08:38→20:20)
[2023-06-11] MEDS: FLUTICASONE PROP 0.05% NASAL SPRAY 16 GM (FLONASE) NARES SCH ×2 (08:38→20:20)
[2023-06-11] MEDS: PANTOPRAZOLE 40MG VIAL IV SCH ×2 (08:38→20:18)
[2023-06-11] MEDS: CLOPIDOGREL 75 MG TAB PO SCH (08:38)
[2023-06-11] MEDS: SODIUM BICARBONATE 325 MG TAB PO SCH ×2 (08:45→20:20)
[2023-06-11] MEDS ORDERED: FUROSEMIDE 20MG/2ML VIAL IV ONE (09:00)
[2023-06-11] MEDS: TAMSULOSIN 0.4 MG CAP PO SCH (20:20)
[2023-06-11] MEDS: ATORVASTATIN 20 MG TAB PO SCH (20:20)
[2023-06-11] MEDS: MIRTAZAPINE 7.5MG PER 1/2 TABLET PO SCH (20:20)
[2023-06-11] MEDS: FINASTERIDE 5MG TAB PO SCH (20:20)
[2023-06-11] MEDS: SERTRALINE HCL 50 MG TAB PO SCH (20:20)
[2023-06-12 04:58] VITALS: BP 113/47; TEMP 98.1; O2SAT 98
[2023-06-12] MEDS: SUCRALFATE SUSP 1GM/10ML UD PO SCH ×3 (05:31→17:03)
[2023-06-12] MEDS: TIOTROPIUM INHALER/CAPSULE (SPIRIVA) INH SCH (07:23)
[2023-06-12] MEDS: SALMETEROL DISKUS 50MCG INHALER (SEREVENT) INH SCH ×2 (07:23→19:21)
[2023-06-12] MEDS: SODIUM BICARBONATE 325 MG TAB PO SCH ×2 (08:05→20:12)
[2023-06-12] MEDS: FLUTICASONE PROP 0.05% NASAL SPRAY 16 GM (FLONASE) NARES SCH ×2 (08:05→20:12)
[2023-06-12] MEDS: FERROUS SULFATE 325MG TAB PO SCH (08:05)
[2023-06-12] MEDS: CLOPIDOGREL 75 MG TAB PO SCH (08:05)
[2023-06-12] MEDS: LACTOBACILLUS ACIDOPHILUS CAP (BACID) PO SCH ×2 (08:05→17:03)
[2023-06-12] MEDS: PANTOPRAZOLE 40MG VIAL IV SCH ×2 (08:06→20:12)
[2023-06-12] MEDS: ISOSORBIDE DIN. (ISORDIL) 30 MG TAB PO SCH ×3 (08:07→20:08)
[2023-06-12 14:16] LABS: BLOOD UREA NITROGEN 7 MG/DL (7-21); CREATININE FOR GFR 0.9 MG/DL (0.7-1.5); GLOMERULAR FILTRATION RATE > 60.0 (>42); GLUCOSE, FASTING 88 MG/DL
[2023-06-12 14:17] LABS: CALCIUM LEVEL 7.6 MG/DL (8.8-10.2); CARBON DIOXIDE LEVEL 21 MEQ/L (22-30); CHLORIDE LEVEL 108 MEQ/L (98-107); MAGNESIUM LEVEL 1.7 MG/DL (1.7-2.2); POTASSIUM SERUM 3.3 MEQ/L (3.6-5.0); SODIUM LEVEL 139 MEQ/L (134-153)
[2023-06-12] MEDS: FINASTERIDE 5MG TAB PO SCH (20:09)
[2023-06-12] MEDS: SERTRALINE HCL 50 MG TAB PO SCH (20:10)
[2023-06-12] MEDS: ATORVASTATIN 20 MG TAB PO SCH (20:11)
[2023-06-12] MEDS: MIRTAZAPINE 7.5MG PER 1/2 TABLET PO SCH (20:12)
[2023-06-12] MEDS: TAMSULOSIN 0.4 MG CAP PO SCH (20:12)
[2023-06-13] MEDS: SUCRALFATE SUSP 1GM/10ML UD PO SCH ×4 (00:43→16:34)
[2023-06-13 06:05] VITALS: BP 125/64; TEMP 97.5; O2SAT 98
[2023-06-13] MEDS: SALMETEROL DISKUS 50MCG INHALER (SEREVENT) INH SCH ×2 (07:19→20:14)
[2023-06-13] MEDS: TIOTROPIUM INHALER/CAPSULE (SPIRIVA) INH SCH (07:19)
[2023-06-13] MEDS: PANTOPRAZOLE 40MG VIAL IV SCH ×2 (08:24→20:48)
[2023-06-13] MEDS: SODIUM BICARBONATE 325 MG TAB PO SCH ×2 (08:25→20:47)
[2023-06-13] MEDS: FERROUS SULFATE 325MG TAB PO SCH (08:25)
[2023-06-13] MEDS: LACTOBACILLUS ACIDOPHILUS CAP (BACID) PO SCH ×2 (08:25→16:33)
[2023-06-13] MEDS: CLOPIDOGREL 75 MG TAB PO SCH (08:25)
[2023-06-13] MEDS: ISOSORBIDE DIN. (ISORDIL) 30 MG TAB PO SCH ×3 (08:25→20:48)
[2023-06-13] MEDS: FLUTICASONE PROP 0.05% NASAL SPRAY 16 GM (FLONASE) NARES SCH ×2 (08:27→20:49)
[2023-06-13 16:21] VITALS: BP 140/52
[2023-06-13] MEDS: TAMSULOSIN 0.4 MG CAP PO SCH (20:47)
[2023-06-13] MEDS: SERTRALINE HCL 50 MG TAB PO SCH (20:47)
[2023-06-13] MEDS: MIRTAZAPINE 7.5MG PER 1/2 TABLET PO SCH (20:47)
[2023-06-13] MEDS: ATORVASTATIN 20 MG TAB PO SCH (20:47)
[2023-06-13] MEDS: FINASTERIDE 5MG TAB PO SCH (20:49)
[2023-06-14] VITALS (11 sets, daily range): BP systolic 131–155; BP diastolic 60–73; TEMP 97.7–98.6; O2SAT 98–100
[2023-06-14] MEDS: SUCRALFATE SUSP 1GM/10ML UD PO SCH ×5 (00:01→23:34)
[2023-06-14] MEDS: TIOTROPIUM INHALER/CAPSULE (SPIRIVA) INH SCH (07:27)
[2023-06-14] MEDS: SALMETEROL DISKUS 50MCG INHALER (SEREVENT) INH SCH ×2 (07:27→19:52)
[2023-06-14 08:20] LABS: HEMOGLOBIN 7.5 g/dl (13.5-17.5); LYMPH # 0.6 10^3/uL (1.5-5.0); LYMPH % 26.8 % (24.0-44.0); MEAN CORPUSCULAR HEMOGLOBIN 28.8 pg (27.0-33.0); MEAN CORPUSCULAR HGB CONC 32.6 g/dl (32.0-36.5); MEAN CORPUSCULAR VOLUME 88.5 fl (80.0-96.0); MONO # 0.2 10^3/uL (0.0-0.8); MONO % 11.3 % (2.0-8.0); NEUTROPHILS # 1.3 10^3/uL (1.5-8.5); NEUTROPHILS % 61.4 % (36.0-66.0); PLATELET COUNT, AUTOMATED 105 10^3/uL (150-450); WHITE BLOOD COUNT 2.1 10^3/uL (4.0-10.0)
[2023-06-14] MEDS: SODIUM BICARBONATE 325 MG TAB PO SCH (08:27)
[2023-06-14] MEDS: CLOPIDOGREL 75 MG TAB PO SCH (08:27)
[2023-06-14] MEDS: FERROUS SULFATE 325MG TAB PO SCH (08:27)
[2023-06-14] MEDS: LACTOBACILLUS ACIDOPHILUS CAP (BACID) PO SCH ×2 (08:27→17:56)
[2023-06-14] MEDS: PANTOPRAZOLE 40MG TAB (PROTONIX) PO SCH ×2 (08:27→21:13)
[2023-06-14] MEDS: ISOSORBIDE DIN. (ISORDIL) 30 MG TAB PO SCH ×3 (08:28→21:13)
[2023-06-14] MEDS: FLUTICASONE PROP 0.05% NASAL SPRAY 16 GM (FLONASE) NARES SCH ×2 (08:28→21:14)
[2023-06-14 08:46] LABS: BLOOD UREA NITROGEN 10 MG/DL (9-23); CALCIUM LEVEL 7.3 MG/DL (8.3-10.6); CARBON DIOXIDE LEVEL 28 MMOL/L (20-31); CHLORIDE LEVEL 109 MMOL/L (98-107); CREATININE FOR GFR 1.04 MG/DL (0.70-1.30); GLOMERULAR FILTRATION RATE > 60.0 (>42); GLUCOSE, FASTING 107 MG/DL (74-106); MAGNESIUM LEVEL 1.6 MG/DL (1.8-2.4); POTASSIUM SERUM 3.2 MMOL/L (3.5-5.1); SODIUM LEVEL 140 MMOL/L (136-145)
[2023-06-14] MEDS ORDERED: POTASSIUM CHLORIDE 10MEQ SR TABLET PO ONE (10:00)
[2023-06-14] MEDS: MAG SULF 1GM/100ML (MAG RUN) 1 GM in IV 1 EA IV SCH ×2 (10:06→11:21)
[2023-06-14] MEDS: APIXABAN 5 MG TAB (ELIQUIS) PO SCH ×2 (11:21→21:13)
[2023-06-14 11:44] LABS: HEPATITIS B CORE ANTIBODY IGM NEGATIVE (NEGATIVE); HEPATITIS C VIRUS ABY INDEX 0.08 INDEX (<0.8)
[2023-06-14 14:15] LABS: HIV 1&2 SCREEN NEGATIVE (NEGATIVE)
[2023-06-14 16:19] LABS: IRON (FE) 26 UG/DL (65-175); LDH LACTATE DEHYDROGENASE 145 U/L (120-246)
[2023-06-14 16:20] LABS: ALBUMIN 1.5 G/DL (3.2-5.2); ALKALINE PHOSPHATASE 94 U/L (46-116); ALT/SGPT 9 U/L (7.0-40); AST/SGOT 15 U/L (<34); BILIRUBIN,DIRECT 0.2 MG/DL (<0.4); BILIRUBIN,TOTAL 0.3 MG/DL (0.3-1.2); TOTAL PROTEIN 5.1 G/DL (5.7-8.2)
[2023-06-14 16:20] LABS: PERCENT SATURATION 20.8 % (19.7-50.0); TOTAL IRON BINDING CAPACITY 125 UG/DL (250-425); VITAMIN B12 LEVEL 675 PG/ML (211-911)
[2023-06-14 16:21] LABS: FOLATE 12.58 NG/ML (>5.4)
[2023-06-14] MEDS: ATORVASTATIN 20 MG TAB PO SCH (21:13)
[2023-06-14] MEDS: TAMSULOSIN 0.4 MG CAP PO SCH (21:13)
[2023-06-14] MEDS: SERTRALINE HCL 50 MG TAB PO SCH (21:13)
[2023-06-14] MEDS: MIRTAZAPINE 7.5MG PER 1/2 TABLET PO SCH (21:13)
[2023-06-14] MEDS: FINASTERIDE 5MG TAB PO SCH (21:13)
[2023-06-15] MEDS: SUCRALFATE SUSP 1GM/10ML UD PO SCH ×4 (05:08→23:10)
[2023-06-15 06:00] VITALS: BP 145/68; TEMP 97.9; O2SAT 99
[2023-06-15 06:33] LABS: HEMATOCRIT 27.5 % (42.0-52.0); LYMPH # 0.5 10^3/uL (1.5-5.0); LYMPH % 20.4 % (24.0-44.0); MEAN CORPUSCULAR HEMOGLOBIN 30.1 pg (27.0-33.0); MEAN CORPUSCULAR HGB CONC 34.9 g/dl (32.0-36.5); MEAN CORPUSCULAR VOLUME 86.2 fl (80.0-96.0); MONO # 0.3 10^3/uL (0.0-0.8); MONO % 11.2 % (2.0-8.0); NEUTROPHILS # 1.7 10^3/uL (1.5-8.5); NEUTROPHILS % 67.6 % (36.0-66.0); PLATELET COUNT, AUTOMATED 109 10^3/uL (150-450); RED BLOOD COUNT 3.19 10^6/uL (4.30-6.10); WHITE BLOOD COUNT 2.5 10^3/uL (4.0-10.0)
[2023-06-15 06:35] LABS: HEMOGLOBIN 9.6 g/dl (13.5-17.5)
[2023-06-15 07:00] LABS: BLOOD UREA NITROGEN 11 MG/DL (9-23); CALCIUM LEVEL 6.9 MG/DL (8.3-10.6); CARBON DIOXIDE LEVEL 26 MMOL/L (20-31); CHLORIDE LEVEL 109 MMOL/L (98-107); CREATININE FOR GFR 0.86 MG/DL (0.70-1.30); GLOMERULAR FILTRATION RATE > 60.0 (>42); GLUCOSE, FASTING 93 MG/DL (74-106); MAGNESIUM LEVEL 1.9 MG/DL (1.8-2.4); POTASSIUM SERUM 3.5 MMOL/L (3.5-5.1); SODIUM LEVEL 141 MMOL/L (136-145)
[2023-06-15] MEDS: SALMETEROL DISKUS 50MCG INHALER (SEREVENT) INH SCH ×2 (07:44→19:35)
[2023-06-15] MEDS: TIOTROPIUM INHALER/CAPSULE (SPIRIVA) INH SCH (07:44)
[2023-06-15] MEDS ORDERED: POTASSIUM CHLORIDE 10MEQ SR TABLET PO ONE (08:00)
[2023-06-15] MEDS: VANICREAM MOISTURIZING SKIN CREAM 113GM TUBE TOP SCH (08:42)
[2023-06-15] MEDS: FERROUS SULFATE 325MG TAB PO SCH (08:44)
[2023-06-15] MEDS: CLOPIDOGREL 75 MG TAB PO SCH (08:44)
[2023-06-15] MEDS: LACTOBACILLUS ACIDOPHILUS CAP (BACID) PO SCH ×2 (08:44→17:05)
[2023-06-15] MEDS: ISOSORBIDE DIN. (ISORDIL) 30 MG TAB PO SCH ×3 (08:44→20:21)
[2023-06-15] MEDS: PANTOPRAZOLE 40MG TAB (PROTONIX) PO SCH ×2 (08:45→20:20)
[2023-06-15] MEDS: FLUTICASONE PROP 0.05% NASAL SPRAY 16 GM (FLONASE) NARES SCH ×2 (08:45→20:20)
[2023-06-15] MEDS: APIXABAN 5 MG TAB (ELIQUIS) PO SCH ×2 (08:45→20:20)
[2023-06-15] MEDS: SERTRALINE HCL 50 MG TAB PO SCH (20:20)
[2023-06-15] MEDS: FINASTERIDE 5MG TAB PO SCH (20:20)
[2023-06-15] MEDS: ATORVASTATIN 20 MG TAB PO SCH (20:20)
[2023-06-15] MEDS: TAMSULOSIN 0.4 MG CAP PO SCH (20:20)
[2023-06-15] MEDS: MIRTAZAPINE 7.5MG PER 1/2 TABLET PO SCH (20:21)
[2023-06-16] MEDS: SUCRALFATE SUSP 1GM/10ML UD PO SCH ×3 (05:19→17:27)
[2023-06-16 06:00] VITALS: BP 142/64; TEMP 98.4; O2SAT 99
[2023-06-16 06:36] LABS: HEMATOCRIT 30.8 % (42.0-52.0); HEMOGLOBIN 10.2 g/dl (13.5-17.5); LYMPH # 0.6 10^3/uL (1.5-5.0); MEAN CORPUSCULAR HGB CONC 33.1 g/dl (32.0-36.5); MEAN CORPUSCULAR VOLUME 87.5 fl (80.0-96.0); MONO # 0.3 10^3/uL (0.0-0.8); MONO % 9.5 % (2.0-8.0); NEUTROPHILS # 1.8 10^3/uL (1.5-8.5); NEUTROPHILS % 68.7 % (36.0-66.0); PLATELET COUNT, AUTOMATED 109 10^3/uL (150-450); RED BLOOD COUNT 3.52 10^6/uL (4.30-6.10); WHITE BLOOD COUNT 2.6 10^3/uL (4.0-10.0)
[2023-06-16 07:01] LABS: BLOOD UREA NITROGEN 12 MG/DL (9-23); CALCIUM LEVEL 7.2 MG/DL (8.3-10.6); CARBON DIOXIDE LEVEL 29 MMOL/L (20-31); CHLORIDE LEVEL 107 MMOL/L (98-107); CREATININE FOR GFR 0.96 MG/DL (0.70-1.30); GLOMERULAR FILTRATION RATE > 60.0 (>42); GLUCOSE, FASTING 99 MG/DL (74-106); MAGNESIUM LEVEL 1.8 MG/DL (1.8-2.4); POTASSIUM SERUM 3.8 MMOL/L (3.5-5.1); SODIUM LEVEL 139 MMOL/L (136-145)
[2023-06-16] MEDS: TIOTROPIUM INHALER/CAPSULE (SPIRIVA) INH SCH (07:28)
[2023-06-16] MEDS: SALMETEROL DISKUS 50MCG INHALER (SEREVENT) INH SCH ×2 (07:28→19:33)
[2023-06-16] MEDS: ISOSORBIDE DIN. (ISORDIL) 30 MG TAB PO SCH ×3 (08:26→21:05)
[2023-06-16] MEDS: APIXABAN 5 MG TAB (ELIQUIS) PO SCH ×2 (08:26→21:02)
[2023-06-16] MEDS: CLOPIDOGREL 75 MG TAB PO SCH (08:26)
[2023-06-16] MEDS: FLUTICASONE PROP 0.05% NASAL SPRAY 16 GM (FLONASE) NARES SCH ×2 (08:27→21:03)
[2023-06-16] MEDS: VANICREAM MOISTURIZING SKIN CREAM 113GM TUBE TOP SCH (08:27)
[2023-06-16] MEDS: PANTOPRAZOLE 40MG TAB (PROTONIX) PO SCH ×2 (08:27→21:04)
[2023-06-16] MEDS: LACTOBACILLUS ACIDOPHILUS CAP (BACID) PO SCH ×2 (08:27→17:27)
[2023-06-16] MEDS: FERROUS SULFATE 325MG TAB PO SCH (08:27)
[2023-06-16] MEDS: MIRTAZAPINE 7.5MG PER 1/2 TABLET PO SCH (21:02)
[2023-06-16] MEDS: ATORVASTATIN 20 MG TAB PO SCH (21:02)
[2023-06-16] MEDS: TAMSULOSIN 0.4 MG CAP PO SCH (21:03)
[2023-06-16] MEDS: SERTRALINE HCL 50 MG TAB PO SCH (21:03)
[2023-06-16] MEDS: FINASTERIDE 5MG TAB PO SCH (21:03)
[2023-06-17] MEDS: SUCRALFATE SUSP 1GM/10ML UD PO SCH ×4 (00:01→17:04)
[2023-06-17 06:00] VITALS: BP 122/61; TEMP 98.1; O2SAT 99
[2023-06-17 06:14] LABS: HEMATOCRIT 29.4 % (42.0-52.0); HEMOGLOBIN 9.8 g/dl (13.5-17.5); LYMPH # 0.5 10^3/uL (1.5-5.0); MEAN CORPUSCULAR HEMOGLOBIN 29.3 pg (27.0-33.0); MEAN CORPUSCULAR HGB CONC 33.3 g/dl (32.0-36.5); MEAN CORPUSCULAR VOLUME 87.8 fl (80.0-96.0); MONO # 0.3 10^3/uL (0.0-0.8); MONO % 11.3 % (2.0-8.0); NEUTROPHILS # 1.4 10^3/uL (1.5-8.5); NEUTROPHILS % 64.2 % (36.0-66.0); PLATELET COUNT, AUTOMATED 105 10^3/uL (150-450); RED BLOOD COUNT 3.35 10^6/uL (4.30-6.10); WHITE BLOOD COUNT 2.2 10^3/uL (4.0-10.0)
[2023-06-17 06:43] LABS: BLOOD UREA NITROGEN 15 MG/DL (9-23); CALCIUM LEVEL 7.2 MG/DL (8.3-10.6); CARBON DIOXIDE LEVEL 26 MMOL/L (20-31); CHLORIDE LEVEL 107 MMOL/L (98-107); CREATININE FOR GFR 1.07 MG/DL (0.70-1.30); GLOMERULAR FILTRATION RATE > 60.0 (>42); GLUCOSE, FASTING 104 MG/DL (74-106); MAGNESIUM LEVEL 1.7 MG/DL (1.8-2.4); POTASSIUM SERUM 3.4 MMOL/L (3.5-5.1); SODIUM LEVEL 140 MMOL/L (136-145)
[2023-06-17] MEDS: TIOTROPIUM INHALER/CAPSULE (SPIRIVA) INH SCH (07:41)
[2023-06-17] MEDS: SALMETEROL DISKUS 50MCG INHALER (SEREVENT) INH SCH ×2 (07:41→19:58)
[2023-06-17] MEDS: APIXABAN 5 MG TAB (ELIQUIS) PO SCH ×2 (08:43→21:09)
[2023-06-17] MEDS: LACTOBACILLUS ACIDOPHILUS CAP (BACID) PO SCH ×2 (08:43→17:04)
[2023-06-17] MEDS: FERROUS SULFATE 325MG TAB PO SCH (08:44)
[2023-06-17] MEDS: ISOSORBIDE DIN. (ISORDIL) 30 MG TAB PO SCH ×3 (08:44→21:09)
[2023-06-17] MEDS: PANTOPRAZOLE 40MG TAB (PROTONIX) PO SCH ×2 (08:45→21:10)
[2023-06-17] MEDS: CLOPIDOGREL 75 MG TAB PO SCH (08:46)
[2023-06-17] MEDS: FLUTICASONE PROP 0.05% NASAL SPRAY 16 GM (FLONASE) NARES SCH ×2 (08:47→21:00)
[2023-06-17] MEDS: VANICREAM MOISTURIZING SKIN CREAM 113GM TUBE TOP SCH (08:47)
[2023-06-17] MEDS: MAGNESIUM OXIDE 400MG TAB (MAG-OX) PO SCH (08:50)
[2023-06-17] MEDS: POTASSIUM CHLORIDE 10MEQ SR TABLET PO SCH (12:19)
[2023-06-17] MEDS: ATORVASTATIN 20 MG TAB PO SCH (21:09)
[2023-06-17] MEDS: SERTRALINE HCL 50 MG TAB PO SCH (21:10)
[2023-06-17] MEDS: MIRTAZAPINE 7.5MG PER 1/2 TABLET PO SCH (21:10)
[2023-06-17] MEDS: FINASTERIDE 5MG TAB PO SCH (21:10)
[2023-06-17] MEDS: TAMSULOSIN 0.4 MG CAP PO SCH (21:10)
[2023-06-18 05:35] VITALS: BP 130/60; TEMP 98.6; O2SAT 100
[2023-06-18] MEDS: SUCRALFATE SUSP 1GM/10ML UD PO SCH ×5 (05:46→23:12)
[2023-06-18 06:15] LABS: HEMATOCRIT 29.4 % (42.0-52.0); HEMOGLOBIN 9.8 g/dl (13.5-17.5); LYMPH # 0.5 10^3/uL (1.5-5.0); LYMPH % 23.1 % (24.0-44.0); MEAN CORPUSCULAR HEMOGLOBIN 29.2 pg (27.0-33.0); MEAN CORPUSCULAR HGB CONC 33.3 g/dl (32.0-36.5); MEAN CORPUSCULAR VOLUME 87.5 fl (80.0-96.0); MONO # 0.2 10^3/uL (0.0-0.8); MONO % 10.4 % (2.0-8.0); NEUTROPHILS # 1.4 10^3/uL (1.5-8.5); PLATELET COUNT, AUTOMATED 107 10^3/uL (150-450); RED BLOOD COUNT 3.36 10^6/uL (4.30-6.10); WHITE BLOOD COUNT 2.1 10^3/uL (4.0-10.0)
[2023-06-18 06:38] LABS: BLOOD UREA NITROGEN 13 MG/DL (9-23); CALCIUM LEVEL 7.2 MG/DL (8.3-10.6); CARBON DIOXIDE LEVEL 26 MMOL/L (20-31); CHLORIDE LEVEL 109 MMOL/L (98-107); CREATININE FOR GFR 0.94 MG/DL (0.70-1.30); GLOMERULAR FILTRATION RATE > 60.0 (>42); GLUCOSE, FASTING 108 MG/DL (74-106); MAGNESIUM LEVEL 1.7 MG/DL (1.8-2.4); POTASSIUM SERUM 3.2 MMOL/L (3.5-5.1); SODIUM LEVEL 141 MMOL/L (136-145)
[2023-06-18] MEDS: TIOTROPIUM INHALER/CAPSULE (SPIRIVA) INH SCH (07:09)
[2023-06-18] MEDS: SALMETEROL DISKUS 50MCG INHALER (SEREVENT) INH SCH ×2 (07:09→20:00)
[2023-06-18] MEDS: FERROUS SULFATE 325MG TAB PO SCH (09:36)
[2023-06-18] MEDS: MAGNESIUM OXIDE 400MG TAB (MAG-OX) PO SCH (09:37)
[2023-06-18] MEDS: LACTOBACILLUS ACIDOPHILUS CAP (BACID) PO SCH ×2 (09:37→17:03)
[2023-06-18] MEDS: POTASSIUM CHLORIDE 10MEQ SR TABLET PO SCH (09:37)
[2023-06-18] MEDS: PANTOPRAZOLE 40MG TAB (PROTONIX) PO SCH ×2 (09:38→21:01)
[2023-06-18] MEDS: CLOPIDOGREL 75 MG TAB PO SCH (09:38)
[2023-06-18] MEDS: ISOSORBIDE DIN. (ISORDIL) 30 MG TAB PO SCH ×3 (09:39→21:02)
[2023-06-18] MEDS: VANICREAM MOISTURIZING SKIN CREAM 113GM TUBE TOP SCH (09:39)
[2023-06-18] MEDS: APIXABAN 5 MG TAB (ELIQUIS) PO SCH ×2 (09:39→21:01)
[2023-06-18] MEDS: FLUTICASONE PROP 0.05% NASAL SPRAY 16 GM (FLONASE) NARES SCH ×2 (09:39→21:00)
[2023-06-18 20:40] VITALS: BP 124/61
[2023-06-18] MEDS: ATORVASTATIN 20 MG TAB PO SCH (21:01)
[2023-06-18] MEDS: SERTRALINE HCL 50 MG TAB PO SCH (21:01)
[2023-06-18] MEDS: TAMSULOSIN 0.4 MG CAP PO SCH (21:01)
[2023-06-18] MEDS: MIRTAZAPINE 7.5MG PER 1/2 TABLET PO SCH (21:01)
[2023-06-18] MEDS: FINASTERIDE 5MG TAB PO SCH (21:01)
[2023-06-18] MEDS ORDERED: CALCIUM CARBONATE 500 MG CHEW U/D PO ONE (23:05)
[2023-06-19 05:37] VITALS: BP 132/66; TEMP 97.9; O2SAT 99
[2023-06-19] MEDS: SUCRALFATE SUSP 1GM/10ML UD PO SCH ×3 (05:45→17:03)
[2023-06-19 06:29] LABS: HEMATOCRIT 28.9 % (42.0-52.0); HEMOGLOBIN 9.5 g/dl (13.5-17.5); LYMPH # 0.5 10^3/uL (1.5-5.0); LYMPH % 20.2 % (24.0-44.0); MEAN CORPUSCULAR HEMOGLOBIN 29.3 pg (27.0-33.0); MEAN CORPUSCULAR HGB CONC 32.9 g/dl (32.0-36.5); MEAN CORPUSCULAR VOLUME 89.2 fl (80.0-96.0); MONO # 0.2 10^3/uL (0.0-0.8); MONO % 9.7 % (2.0-8.0); NEUTROPHILS # 1.7 10^3/uL (1.5-8.5); NEUTROPHILS % 70.1 % (36.0-66.0); PLATELET COUNT, AUTOMATED 104 10^3/uL (150-450); RED BLOOD COUNT 3.24 10^6/uL (4.30-6.10); WHITE BLOOD COUNT 2.4 10^3/uL (4.0-10.0)
[2023-06-19 06:54] LABS: BLOOD UREA NITROGEN 15 MG/DL (9-23); CALCIUM LEVEL 7.3 MG/DL (8.3-10.6); CARBON DIOXIDE LEVEL 26 MMOL/L (20-31); CHLORIDE LEVEL 109 MMOL/L (98-107); CREATININE FOR GFR 0.96 MG/DL (0.70-1.30); GLOMERULAR FILTRATION RATE > 60.0 (>42); GLUCOSE, FASTING 171 MG/DL (74-106); MAGNESIUM LEVEL 1.7 MG/DL (1.8-2.4); POTASSIUM SERUM 3.4 MMOL/L (3.5-5.1); SODIUM LEVEL 142 MMOL/L (136-145)
[2023-06-19] MEDS: TIOTROPIUM INHALER/CAPSULE (SPIRIVA) INH SCH (07:35)
[2023-06-19] MEDS: SALMETEROL DISKUS 50MCG INHALER (SEREVENT) INH SCH ×2 (07:35→19:29)
[2023-06-19] MEDS: ISOSORBIDE DIN. (ISORDIL) 30 MG TAB PO SCH ×3 (09:00→21:03)
[2023-06-19] MEDS: CLOPIDOGREL 75 MG TAB PO SCH (09:15)
[2023-06-19] MEDS: FERROUS SULFATE 325MG TAB PO SCH (09:15)
[2023-06-19] MEDS: POTASSIUM CHLORIDE 10MEQ SR TABLET PO SCH (09:15)
[2023-06-19] MEDS: LACTOBACILLUS ACIDOPHILUS CAP (BACID) PO SCH ×2 (09:15→17:03)
[2023-06-19] MEDS: MAGNESIUM OXIDE 400MG TAB (MAG-OX) PO SCH (09:16)
[2023-06-19] MEDS: APIXABAN 5 MG TAB (ELIQUIS) PO SCH ×2 (09:16→21:04)
[2023-06-19] MEDS: PANTOPRAZOLE 40MG TAB (PROTONIX) PO SCH ×2 (09:16→21:04)
[2023-06-19] MEDS: FLUTICASONE PROP 0.05% NASAL SPRAY 16 GM (FLONASE) NARES SCH ×2 (09:17→21:00)
[2023-06-19] MEDS: VANICREAM MOISTURIZING SKIN CREAM 113GM TUBE TOP SCH (09:18)
[2023-06-19] MEDS ORDERED: CALCIUM CARBONATE 500 MG CHEW U/D PO PRN (17:30)
[2023-06-19] MEDS: MIRTAZAPINE 7.5MG PER 1/2 TABLET PO SCH (21:03)
[2023-06-19] MEDS: TAMSULOSIN 0.4 MG CAP PO SCH (21:04)
[2023-06-19] MEDS: SERTRALINE HCL 50 MG TAB PO SCH (21:04)
[2023-06-19] MEDS: FINASTERIDE 5MG TAB PO SCH (21:04)
[2023-06-19] MEDS: ATORVASTATIN 20 MG TAB PO SCH (21:04)
[2023-06-20 05:28] VITALS: BP 118/49; TEMP 97.5; O2SAT 98
[2023-06-20] MEDS: SUCRALFATE SUSP 1GM/10ML UD PO SCH ×5 (05:30→23:15)
[2023-06-20 06:24] LABS: HEMATOCRIT 30.7 % (42.0-52.0); HEMOGLOBIN 10.2 g/dl (13.5-17.5); LYMPH # 0.6 10^3/uL (1.5-5.0); LYMPH % 23.3 % (24.0-44.0); MEAN CORPUSCULAR HEMOGLOBIN 29.5 pg (27.0-33.0); MEAN CORPUSCULAR HGB CONC 33.2 g/dl (32.0-36.5); MEAN CORPUSCULAR VOLUME 88.7 fl (80.0-96.0); MONO # 0.3 10^3/uL (0.0-0.8); MONO % 12.3 % (2.0-8.0); NEUTROPHILS # 1.6 10^3/uL (1.5-8.5); NEUTROPHILS % 64.4 % (36.0-66.0); PLATELET COUNT, AUTOMATED 102 10^3/uL (150-450); RED BLOOD COUNT 3.46 10^6/uL (4.30-6.10); WHITE BLOOD COUNT 2.5 10^3/uL (4.0-10.0)
[2023-06-20 06:53] LABS: BLOOD UREA NITROGEN 13 MG/DL (9-23); CALCIUM LEVEL 7.4 MG/DL (8.3-10.6); CARBON DIOXIDE LEVEL 26 MMOL/L (20-31); CHLORIDE LEVEL 108 MMOL/L (98-107); CREATININE FOR GFR 0.94 MG/DL (0.70-1.30); GLOMERULAR FILTRATION RATE > 60.0 (>42); GLUCOSE, FASTING 90 MG/DL (74-106); MAGNESIUM LEVEL 1.8 MG/DL (1.8-2.4); POTASSIUM SERUM 3.9 MMOL/L (3.5-5.1); SODIUM LEVEL 141 MMOL/L (136-145)
[2023-06-20] MEDS: SALMETEROL DISKUS 50MCG INHALER (SEREVENT) INH SCH ×2 (08:03→20:12)
[2023-06-20] MEDS: TIOTROPIUM INHALER/CAPSULE (SPIRIVA) INH SCH (08:03)
[2023-06-20] MEDS: LACTOBACILLUS ACIDOPHILUS CAP (BACID) PO SCH ×2 (08:43→16:43)
[2023-06-20] MEDS: MAGNESIUM OXIDE 400MG TAB (MAG-OX) PO SCH (08:43)
[2023-06-20] MEDS: PANTOPRAZOLE 40MG TAB (PROTONIX) PO SCH ×2 (08:43→20:41)
[2023-06-20] MEDS: FLUTICASONE PROP 0.05% NASAL SPRAY 16 GM (FLONASE) NARES SCH ×2 (08:43→20:42)
[2023-06-20] MEDS: CLOPIDOGREL 75 MG TAB PO SCH (08:43)
[2023-06-20] MEDS: POTASSIUM CHLORIDE 10MEQ SR TABLET PO SCH (08:43)
[2023-06-20] MEDS: VANICREAM MOISTURIZING SKIN CREAM 113GM TUBE TOP SCH (08:43)
[2023-06-20] MEDS: FERROUS SULFATE 325MG TAB PO SCH (08:43)
[2023-06-20] MEDS: APIXABAN 5 MG TAB (ELIQUIS) PO SCH ×2 (08:43→20:41)
[2023-06-20] MEDS: ISOSORBIDE DIN. (ISORDIL) 30 MG TAB PO SCH ×3 (08:45→20:40)
[2023-06-20 10:01] LABS: ALBUMIN 1.5 G/DL (3.2-5.2); ALKALINE PHOSPHATASE 100 U/L (46-116); ALT/SGPT 22 U/L (7.0-40); AST/SGOT 24 U/L (<34); BILIRUBIN,DIRECT 0.2 MG/DL (<0.4); BILIRUBIN,TOTAL 0.4 MG/DL (0.3-1.2)
[2023-06-20] MEDS: SIMETHICONE 80MG CHEW TAB PO SCH ×3 (10:44→20:41)
[2023-06-20] MEDS: MECLIZINE 25 MG TABLET PO SCH ×4 (10:44→20:41)
[2023-06-20 12:52] VITALS: BP 124/56; TEMP 97.7; O2SAT 100
[2023-06-20] MEDS ORDERED: ISOVUE-370 76% 100ML VIAL As Ordered ONE (13:06)
[2023-06-20 15:03] LABS: PROCALCITONIN 0.18 ng/ml
[2023-06-20 15:56] LABS: ERYTHROCYTE SEDIMENTATION RATE 23 mm/hr (0-20)
[2023-06-20] MEDS: LACTULOSE 20GM/30ML SYRUP UDC PO SCH ×2 (16:43→23:15)
[2023-06-20] MEDS: MIRTAZAPINE 7.5MG PER 1/2 TABLET PO SCH (20:41)
[2023-06-20] MEDS: SERTRALINE HCL 50 MG TAB PO SCH (20:41)
[2023-06-20] MEDS: FINASTERIDE 5MG TAB PO SCH (20:41)
[2023-06-20] MEDS: ATORVASTATIN 20 MG TAB PO SCH (20:41)
[2023-06-20] MEDS: TAMSULOSIN 0.4 MG CAP PO SCH (20:41)
[2023-06-21 04:50] VITALS: BP 126/55; TEMP 98.1; O2SAT 100
[2023-06-21] MEDS: SIMETHICONE 80MG CHEW TAB PO SCH (04:53)
[2023-06-21] MEDS: SUCRALFATE SUSP 1GM/10ML UD PO SCH ×2 (04:53→12:19)
[2023-06-21] MEDS: LACTULOSE 20GM/30ML SYRUP UDC PO SCH (04:53)
[2023-06-21 06:11] LABS: HEMATOCRIT 31.3 % (42.0-52.0); HEMOGLOBIN 10.3 g/dl (13.5-17.5); LYMPH # 0.5 10^3/uL (1.5-5.0); LYMPH % 21.8 % (24.0-44.0); MEAN CORPUSCULAR HEMOGLOBIN 29.3 pg (27.0-33.0); MEAN CORPUSCULAR HGB CONC 32.9 g/dl (32.0-36.5); MEAN CORPUSCULAR VOLUME 88.9 fl (80.0-96.0); MONO # 0.3 10^3/uL (0.0-0.8); MONO % 11.7 % (2.0-8.0); NEUTROPHILS # 1.6 10^3/uL (1.5-8.5); NEUTROPHILS % 66.1 % (36.0-66.0); PLATELET COUNT, AUTOMATED 148 10^3/uL (150-450); RED BLOOD COUNT 3.52 10^6/uL (4.30-6.10); WHITE BLOOD COUNT 2.5 10^3/uL (4.0-10.0)
[2023-06-21 06:38] LABS: ALBUMIN 1.6 G/DL (3.2-5.2); ALKALINE PHOSPHATASE 105 U/L (46-116); ALT/SGPT 23 U/L (7.0-40); AST/SGOT 21 U/L (<34); BILIRUBIN,TOTAL 0.5 MG/DL (0.3-1.2); BLOOD UREA NITROGEN 14 MG/DL (9-23); CALCIUM LEVEL 7.7 MG/DL (8.3-10.6); CARBON DIOXIDE LEVEL 25 MMOL/L (20-31); CHLORIDE LEVEL 107 MMOL/L (98-107); CREATININE FOR GFR 1.04 MG/DL (0.70-1.30); GLOMERULAR FILTRATION RATE > 60.0 (>42); GLUCOSE, FASTING 92 MG/DL (74-106); POTASSIUM SERUM 3.5 MMOL/L (3.5-5.1); SODIUM LEVEL 141 MMOL/L (136-145); TOTAL PROTEIN 5.4 G/DL (5.7-8.2)
[2023-06-21] MEDS: SALMETEROL DISKUS 50MCG INHALER (SEREVENT) INH SCH (07:16)
[2023-06-21] MEDS: TIOTROPIUM INHALER/CAPSULE (SPIRIVA) INH SCH (07:16)
[2023-06-21] MEDS: LACTOBACILLUS ACIDOPHILUS CAP (BACID) PO SCH (07:57)
[2023-06-21] MEDS: FLUTICASONE PROP 0.05% NASAL SPRAY 16 GM (FLONASE) NARES SCH (08:00)
[2023-06-21] MEDS: VANICREAM MOISTURIZING SKIN CREAM 113GM TUBE TOP SCH (08:00)
[2023-06-21] MEDS: ISOSORBIDE DIN. (ISORDIL) 30 MG TAB PO SCH (08:01)
[2023-06-21] MEDS: FERROUS SULFATE 325MG TAB PO SCH (08:01)
[2023-06-21] MEDS: CLOPIDOGREL 75 MG TAB PO SCH (08:01)
[2023-06-21] MEDS: POTASSIUM CHLORIDE 10MEQ SR TABLET PO SCH (08:01)
[2023-06-21 08:02] VITALS: BP 126/55
[2023-06-21] MEDS: PANTOPRAZOLE 40MG TAB (PROTONIX) PO SCH (08:02)
[2023-06-21] MEDS: MAGNESIUM OXIDE 400MG TAB (MAG-OX) PO SCH (08:02)
[2023-06-21] MEDS: APIXABAN 5 MG TAB (ELIQUIS) PO SCH (08:02)
[2023-06-21] MEDS ORDERED: MAGN400T2 PO (11:03)
[2023-06-21] MEDS ORDERED: POTA-136 PO (11:03)
== END 2023-06-21 13:39 ==
LOC: EDBD 15:20 → M ED 15:20 → M ED INP 18:07 → M MSPAV 20:50
PROVIDERS: ADMIT Family Medicine; ATTEND Family Medicine
DX: I95.9 Hypotension, unspecified (principal); N39.0 Urinary tract infection, site not specified; R10.13 Epigastric pain; I25.10 Atherosclerotic heart disease of native coronary artery without angina pectoris; I73.9 Peripheral vascular disease, unspecified; I48.19 Other persistent atrial fibrillation; D50.9 Iron deficiency anemia, unspecified; Z79.01 Long term (current) use of anticoagulants; Z79.02 Long term (current) use of antithrombotics/antiplatelets; Z86.73 Personal history of transient ischemic attack (TIA), and cerebral infarction without residual deficits; E78.5 Hyperlipidemia, unspecified; K52.89 Other specified noninfective gastroenteritis and colitis; I95.1 Orthostatic hypotension; J44.9 Chronic obstructive pulmonary disease, unspecified; G47.33 Obstructive sleep apnea (adult) (pediatric); N31.2 Flaccid neuropathic bladder, not elsewhere classified; Z79.899 Other long term (current) drug therapy; D61.818 Other pancytopenia; D72.818 Other decreased white blood cell count; D69.6 Thrombocytopenia, unspecified; U07.1 COVID-19; L89.154 Pressure ulcer of sacral region, stage 4; C34.90 Malignant neoplasm of unspecified part of unspecified bronchus or lung; Z79.51 Long term (current) use of inhaled steroids; Z96.0 Presence of urogenital implants; F32.A Depression, unspecified

== ENCOUNTER → 2023-06-22 | Outpatient (REF) | payer MEDICARE, MEDICAID ==
[~2023-06-22] MED LIST changes: +ACET1TAB55 PO; +ACID1TAB PO; +APAP325T4 PO; +BACI1CAP PO; -CEFD1CAP9 PO; +CEFD300C42 PO; +CEPH500C PO; +CLOP75TA2 PO; +FAMO20TA PO; +FERR325T3 PO; +FLON1SPR NARES; +FLUT50SP17 INH; -FLUTISP INH; +FOLI1TAB11 PO; +GLUCLIQ37 PO; +JUVE1POW PO; +MAGN400T2 PO; +MIRT-88 PO; +OXYC-517 PO; +POTA-136 PO; +SERT50TA29 PO; +[UNRECOGNIZED DRUG - CODE] PO
[2023-06-22 11:04] LABS: HEMATOCRIT 30.1 % (42.0-52.0); HEMOGLOBIN 9.8 g/dl (13.5-17.5); MEAN CORPUSCULAR HEMOGLOBIN 29.7 pg (27.0-33.0); MEAN CORPUSCULAR HGB CONC 32.6 g/dl (32.0-36.5); MEAN CORPUSCULAR VOLUME 91.2 fl (80.0-96.0); PLATELET COUNT, AUTOMATED 150 10^3/uL (150-450)
[2023-06-22 11:38] LABS: BLOOD UREA NITROGEN 14 MG/DL (9-23); CALCIUM LEVEL 7.6 MG/DL (8.3-10.6); CARBON DIOXIDE LEVEL 26 MMOL/L (20-31); CHLORIDE LEVEL 106 MMOL/L (98-107); CREATININE FOR GFR 1.07 MG/DL (0.70-1.30); GLOMERULAR FILTRATION RATE > 60.0 (>42); GLUCOSE, FASTING 151 MG/DL (74-106); POTASSIUM SERUM 3.6 MMOL/L (3.5-5.1); SODIUM LEVEL 138 MMOL/L (136-145)
== END ==
PROVIDERS: ATTEND Physician Assistant
DX: D64.9 Anemia, unspecified (principal)

== ENCOUNTER → 2023-06-29 | Outpatient (REF) | payer MEDICARE, MEDICAID ==
[2023-06-29 11:23] LABS: HEMATOCRIT 32.6 % (42.0-52.0); HEMOGLOBIN 10.5 g/dl (13.5-17.5); MEAN CORPUSCULAR HEMOGLOBIN 29.9 pg (27.0-33.0); MEAN CORPUSCULAR HGB CONC 32.2 g/dl (32.0-36.5); MEAN CORPUSCULAR VOLUME 92.9 fl (80.0-96.0); PLATELET COUNT, AUTOMATED 219 10^3/uL (150-450); RED BLOOD COUNT 3.51 10^6/uL (4.30-6.10); WHITE BLOOD COUNT 4.2 10^3/uL (4.0-10.0)
[2023-06-29 11:51] LABS: BLOOD UREA NITROGEN 39 MG/DL (9-23); CALCIUM LEVEL 8.1 MG/DL (8.3-10.6); CARBON DIOXIDE LEVEL 24 MMOL/L (20-31); CHLORIDE LEVEL 109 MMOL/L (98-107); CREATININE FOR GFR 1.11 MG/DL (0.70-1.30); GLOMERULAR FILTRATION RATE > 60.0 (>42); GLUCOSE, FASTING 161 MG/DL (74-106); POTASSIUM SERUM 3.9 MMOL/L (3.5-5.1); SODIUM LEVEL 141 MMOL/L (136-145)
== END ==
PROVIDERS: ATTEND Physician Assistant
DX: D64.9 Anemia, unspecified (principal)

== ENCOUNTER → 2023-07-25 | Outpatient (REF) | payer MEDICARE, MEDICAID ==
[~2023-07-25] MED LIST changes: +CEFD1CAP9 PO; -CEFD300C42 PO; -FLUT50SP17 INH; +FLUTISP INH
[2023-07-25 10:58] LABS: HEMATOCRIT 30.9 % (42.0-52.0); HEMOGLOBIN 9.9 g/dl (13.5-17.5); MEAN CORPUSCULAR HEMOGLOBIN 31.8 pg (27.0-33.0); MEAN CORPUSCULAR VOLUME 99.4 fl (80.0-96.0); PLATELET COUNT, AUTOMATED 221 10^3/uL (150-450); RED BLOOD COUNT 3.11 10^6/uL (4.30-6.10); WHITE BLOOD COUNT 5.5 10^3/uL (4.0-10.0)
[2023-07-25 11:25] LABS: ALBUMIN 2.4 G/DL (3.2-5.2); ALKALINE PHOSPHATASE 85 U/L (46-116); ALT/SGPT 61 U/L (7.0-40); AST/SGOT 32 U/L (<34); BILIRUBIN,TOTAL 0.4 MG/DL (0.3-1.2); BLOOD UREA NITROGEN 64 MG/DL (9-23); CALCIUM LEVEL 7.8 MG/DL (8.3-10.6); CARBON DIOXIDE LEVEL 21 MMOL/L (20-31); CHLORIDE LEVEL 103 MMOL/L (98-107); CREATININE FOR GFR 1.12 MG/DL (0.70-1.30); GLOMERULAR FILTRATION RATE > 60.0 (>42); GLUCOSE, FASTING 291 MG/DL (74-106); POTASSIUM SERUM 4.5 MMOL/L (3.5-5.1); SODIUM LEVEL 134 MMOL/L (136-145); TOTAL PROTEIN 6.4 G/DL (5.7-8.2)
== END ==
PROVIDERS: ATTEND Physician Assistant
DX: Z79.899 Other long term (current) drug therapy (principal)

== ENCOUNTER → 2023-07-27 | Outpatient (REF) | payer MEDICARE, MEDICAID ==
[2023-07-27 12:13] LABS: BLOOD UREA NITROGEN 60 MG/DL (9-23); CALCIUM LEVEL 7.4 MG/DL (8.3-10.6); CARBON DIOXIDE LEVEL 20 MMOL/L (20-31); CHLORIDE LEVEL 104 MMOL/L (98-107); CREATININE FOR GFR 1.23 MG/DL (0.70-1.30); GLOMERULAR FILTRATION RATE > 60.0 (>42); GLUCOSE, FASTING 293 MG/DL (74-106); POTASSIUM SERUM 5.2 MMOL/L (3.5-5.1); SODIUM LEVEL 133 MMOL/L (136-145)
== END ==
PROVIDERS: ATTEND Physician Assistant
DX: Z12.5 Encounter for screening for malignant neoplasm of prostate (principal); B99.9 Unspecified infectious disease
CPT/HCPCS: 36415; 80048; G0103

== ENCOUNTER → 2023-08-02 | Outpatient (REF) | payer MEDICARE, MEDICAID ==
[2023-08-03 15:19] LABS: APPEARANCE, URINE HAZY (CLEAR); BACTERIA, URINE AUTO 1+ (NEGATIVE); BILIRUBIN, URINE AUTO NEGATIVE (NEGATIVE); BLOOD, URINE BLOOD 3+ (NEGATIVE); COLOR, URINE AMBER (YELLOW); GLUCOSE, URINE (UA) AUTO 3+ mg/dL (NEGATIVE); KETONE, URINE AUTO NEGATIVE (NEGATIVE); LEUKOCYTE ESTERASE, URINE AUTO 3+ (NEGATIVE); MUCUS, URINE SMALL (NEGATIVE); NITRITE, URINE AUTO NEGATIVE (NEGATIVE); PROTEIN, URINE AUTO 2+ mg/dL (NEGATIVE); RBC, URINE AUTO 94 /HPF (0-3); SPECIFIC GRAVITY URINE AUTO 1.016 (1.002-1.035); SQUAMOUS EPITHELIAL CELL UR AU 1 /HPF (0-6); UROBILINOGEN, URINE AUTO 0.2 mg/dL (0.0-2.0); WBC, URINE AUTO TNTC /HPF (0-3)
== END ==
PROVIDERS: ATTEND Physician Assistant
DX: N39.0 Urinary tract infection, site not specified (principal)

== ENCOUNTER → 2023-08-25 | Outpatient (REF) | payer MEDICARE, MEDICAID ==
[2023-08-25 16:14] LABS: MEAN CORPUSCULAR HEMOGLOBIN 30.5 pg (27.0-33.0); MEAN CORPUSCULAR HGB CONC 30.7 g/dl (32.0-36.5); MEAN CORPUSCULAR VOLUME 99.4 fl (80.0-96.0); PLATELET COUNT, AUTOMATED 213 10^3/uL (150-450); RED BLOOD COUNT 1.77 10^6/uL (4.30-6.10); WHITE BLOOD COUNT 8.1 10^3/uL (4.0-10.0)
[2023-08-25 16:18] LABS: HEMATOCRIT 17.6 % (42.0-52.0); HEMOGLOBIN 5.4 g/dl (13.5-17.5)
[2023-08-25 16:53] LABS: ALBUMIN 1.5 G/DL (3.2-5.2); BILIRUBIN,TOTAL 0.2 MG/DL (0.3-1.2); CALCIUM LEVEL 7.6 MG/DL (8.3-10.6); CREATININE FOR GFR 2.05 MG/DL (0.70-1.30); GLOMERULAR FILTRATION RATE 34.2 (>42); POTASSIUM SERUM 5.7 MMOL/L (3.5-5.1); THYROID STIMULATING HORMONE 2.249 uIU/ML (0.55-4.78); TOTAL PROTEIN 5.7 G/DL (5.7-8.2)
== END ==
PROVIDERS: ATTEND Physician Assistant
DX: R63.8 Other symptoms and signs concerning food and fluid intake (principal); Z79.899 Other long term (current) drug therapy

== ENCOUNTER → 2023-08-26 | Outpatient (REF) | payer MEDICARE, MEDICAID | PROVIDERS: ATTEND Physician Assistant | DX: Z53.8 Procedure and treatment not carried out for other reasons (principal) ==

== ENCOUNTER → 2023-08-26 | Outpatient (REF) | payer MEDICARE, MEDICAID | PROVIDERS: ATTEND Physician Assistant | DX: D64.9 Anemia, unspecified (principal) ==